=== PATIENT | male | born 1955 | race Caucasian/White ===

== ENCOUNTER → 2016-07-04 | Outpatient (CLI) | payer BC ==
[~2016-07-04] MED LIST: AMOX500C3 PO; ASPI325T39 PO; BUME1TAB PO; BUME2TAB3 PO; CARV6.252 PO; CLOP1TAB15 PO; CYAN3INJ IM; CYNI1000 IM; DOXY100C76 PO; DXY100 PO; GABA-113 PO; METF-384 PO; NTRSLP4 SL; PLV75 PO; PRAV80TA2 PO; PRVHFAIN PO; SACU1TAB4 PO; SULF800T23 PO; VTMB12 PO
--- NOTE | 2016-07-04 11:41 | DIAGNOSTIC IMAGING REPORT ---
RIGHT FIRST TOE 3 VIEWS HISTORY: NON HEALING WOULD Right COMPARISON: None. FINDINGS: There is no fracture or dislocation. Soft tissue swelling within the right first toe. No underlying bony destruction within the proximal distal phalanx of the right first toe. However, there is a 9 mm focus of osteolysis/cortical destruction within the head of the first metatarsal medially. No radiopaque foreign bodies. IMPRESSION: 1. Soft tissue swelling at the right first toe. No underlying bony obstruction within the first toe. 2. However, there is a 9 mm focus of osteolysis/cortical destruction at the head of the first metatarsal medially. This is separate from the area of soft tissue swelling. However, a small focus of osteomyelitis cannot be excluded. Clinical correlation recommended to assess for developing osteomyelitis at this location. Electronically signed by: Enzo Duarte M.D. 07/04/2016 11:39 AM Dictated Date/Time: 07/04/2016 11:36 AM
== END | disposition home or self-care (01) ==
LOC: C.RAD 10:33
PROVIDERS: ATTEND Physician Assistant
DX: L08.9 Local infection of the skin and subcutaneous tissue, unspecified (principal)

== ENCOUNTER 2016-09-09 12:06 | Inpatient (IN) | payer SELFPAY ==
[~2016-09-09] VITALS: Ht 185.4 cm; Wt 102.4 kg
[~2016-09-09 12:06] MED LIST changes: -BUME2TAB3 PO; -CLOP1TAB15 PO; -CYNI1000 IM; -DOXY100C76 PO; -DXY100 PO; -NTRSLP4 SL; -PRVHFAIN PO; -VTMB12 PO
[2016-09-09 12:09] VITALS: Ht 185.4 cm; Wt 102.4 kg
[2016-09-09 12:27] LABS: BASO % 0.5 %; BASO ABS # 0.03 K/uL (0-0.2); COMPLETE YES; EOS % 3.1 %; IG% 0.2 %; LYMPH % 10.3 %; MEAN CELL VOLUME 89.7 fL (80-100); MEAN CORPUSCULAR HEMOGLOBIN 28.5 pg (25-34); MEAN CORPUSCULAR HGB CONC 31.7 g/dl (32-36); MONO % 4.3 %; NEUT % 81.6 %; PLATELET COUNT 312 K/uL (130-400); WHITE BLOOD COUNT 5.84 K/uL (4.8-10.8)
[2016-09-09 12:38] LABS: PARTIAL THROMBOPLASTIN RATIO 1.1; PROTHROMBIN TIME (PATIENT) 11.2 SECONDS (9.0-12.0)
[2016-09-09 12:43] LABS: BUN/CREATININE RATIO 19.2 (10-20); CALCIUM 8.8 mg/dl (8.5-10.1); CREATININE 1.8 mg/dl (0.60-1.40); POTASSIUM 5.4 mmol/L (3.5-5.1)
--- NOTE | 2016-09-09 13:03 | DIAGNOSTIC IMAGING REPORT ---
CHEST ONE VIEW PORTABLE HISTORY: 61 years-old Male acute chest pain and pressure. COMPARISON: Chest radiograph 01/31/2016 TECHNIQUE: Portable upright AP view of the chest FINDINGS: Cardiomegaly is redemonstrated. Prior median sternotomy with surgical clips seen within the region of the left hilum. Single lead left pectoral pacer/defibrillator is again seen with lead intact. Telemetry leads are seen along the chest as well. There is no pneumothorax. There is chronic blunting of the bilateral costophrenic angles, unchanged. Mild pulmonary vascular congestion is noted and also appears unchanged. There is no overt pulmonary edema. Patchy alveolar opacity of the left lung base is again seen. The bones appear to be grossly intact. IMPRESSION: Stable exam with redemonstration of cardiomegaly and mild pulmonary vascular congestion with small bilateral pleural effusions and left basilar atelectasis. The above report was generated using voice recognition software. It may contain grammatical, syntax or spelling errors. Electronically signed by: Andrea Mi M.D. 09/09/2016 1:02 PM Dictated Date/Time: 09/09/2016 1:00 PM
[2016-09-09 13:13] LABS: BETA-HYDROXYBUTYRATE 1.48 mg/dL (0.2-2.81); CKMB/CK RATIO 3.9 (0-3.0)
[2016-09-09] MEDS ORDERED: BUME2TAB3 PO (13:44)
[2016-09-09] MEDS ORDERED: CYNI1000 IM (13:44)
[2016-09-09] MEDS ORDERED: SODIUM CHLORIDE 0.9% 1000ML 1,000 ML IV SCH (15:53)
[2016-09-09] MEDS ORDERED: ALUMINUM/MAGNESIUM/SIMETH (MAALOX MAX) 30 ML UDC PO PRN (16:00)
[2016-09-09] MEDS ORDERED: POLYETHYLENE (MIRALAX) 17 GM PACK PO PRN (16:00)
[2016-09-09] MEDS ORDERED: ZOLPIDEM TARTRATE 5 MG TAB PO PRN (16:00)
[2016-09-09] MEDS ORDERED: GLUCOSE 40% GEL 15 GM TUBE PO PRN (16:00)
[2016-09-09] MEDS ORDERED: GLUCAGON FOR INJ 1 MG VIAL SQ PRN (16:00)
[2016-09-09] MEDS ORDERED: GLUCOSE 10 TABS/TUBE PO PRN (16:00)
[2016-09-09] MEDS ORDERED: DEXTROSE 50% 50 ML SYR IV PRN (16:00)
[2016-09-09] MEDS ORDERED: ACETAMINOPHEN 325 MG TAB PO PRN (16:00)
[2016-09-09] MEDS ORDERED: MAGNESIUM HYDROXIDE SUSP 30 ML UDC PO PRN (16:00)
[2016-09-09] MEDS ORDERED: NITROGLYCERIN 0.4 MG SL PER TAB CHARGE SL PRN (16:00)
[2016-09-09] MEDS ORDERED: ACETYLCYSTEINE 600 MG CAP PO STA (16:08)
[2016-09-09] MEDS ORDERED: PHARMACY GLYCEMIC MGMT CONSULT SCH (16:13)
--- NOTE | 2016-09-09 16:20 | EMERGENCY ROOM VISIT NOTE ---
History Report prepared by Salena: Aneudy Lundberg Under the Supervision of: Dr. Adams Dolan M.D. First contact with patient: 12:08 Chief Complaint: CARDIAC ASSESSMENT Stated Complaint: CHEST PRESSURE History of Present Illness The patient is a 61 year old male who presents to the Emergency Room with complaints of intermittent left-sided chest pressure beginning a week ago. The patient states that he is currently not having chest pain or discomfort, but when he does it is a /-09/22 in severity. He reports that he used to get similar symptoms that would last 3 to 4 seconds before his open heart surgery in 2013. The patient notes that this is the first time his symptoms have returned. He reports that he was away on business in [place] when his symptoms started. He states that his last episode was this morning when he was walking to breakfast from the car. The patient reports that as he was walking, he felt the chest pressure, and it lasted 10 to 15 seconds. He notes that it only occurs when he is exerting himself, and after he rests for a few seconds, his symptoms resolve. The patient states that after his surgery, he was hospitalized multiple times, and he had two stents and a balloon in place. He reports that he had a heart catheterization 7 months ago, and it was negative. The patient notes that since then, he was hospitalized once, and he still follows up with his procurement specialist and takes Plavix and aspirin. He states that he has no other health history. The patient reports that his baseline troponin level is elevated. Pt denies LOC, headache, fevers, chills, diaphoresis, visual changes, neck pain, breathing difficulties, nausea, vomiting, abdominal pain, back pain, melena, hematochezia, urinary symptoms, numbness, weakness, lymphadenopathy, rash, leg edema, taking nitroglycerin, or other complaints. Source of History: patient Onset: week ago Position: chest (left) Symptom Intensity: 08/22-09/22 Quality: pressure Review of Systems See HPI for pertinent positives and negatives. A total of ten systems were reviewed and were otherwise negative. Past Medical & Surgical Medical Problems: (1) Acute exacerbation of CHF (congestive heart failure) (2) CHF (congestive heart failure) (3) Coronary artery disease (4) H/O cardiac pacemaker (5) Hypertension (6) Hypoxia (7) Ischemic cardiomyopathy (8) NSTEMI (non-ST elevated myocardial infarction) Surgical Problems: (1) H/O cardiac catheterization (2) S/P CABG (coronary artery bypass graft) (3) S/P cholecystectomy (4) Stented coronary artery Family History No pertinent family history Social History Smoking Status: Never Smoker Drug Use: none Marital Status: Housing Status: lives alone Occupation Status: employed Current/Historical Medications Scheduled Aspirin (Aspirin Ec), 325 MG PO QAM Bumetanide (Bumex), 1 TAB PO DAILY Carvedilol (Coreg), 6.25 MG PO BID Clopidogrel Bisulfate (Clopidogrel), 75 MG PO QAM Cyanocobalamin (Cyanocobalamin), 1 ML IM MONTHLY Gabapentin (Neurontin), 300 MG PO HS Metformin Hcl (Glucophage), 1,000 MG PO BID Pravastatin Sodium (Pravastatin Sodium), 1 TAB PO HS Sacubitril-Valsartan (Entresto 97-103 mg), 1 TAB PO BID Allergies Coded Allergies: No Known Allergies (Unverified , 09/09/16) Physical Exam Vital Signs Date Time Temp Pulse Resp B/P (MAP) Pulse Ox O2 Delivery O2 Flow Rate FiO2 09/09/16 15:14 69 15 108/60 93 Nasal Cannula 2.0 09/09/16 14:13 66 20 106/68 94 Nasal Cannula 2.0 09/09/16 12:53 68 22 104/60 95 2.0 09/09/16 12:26 67 09/09/16 12:24 Nasal Cannula 2.0 09/09/16 12:09 36.6 71 18 102/63 92 Room Air Physical Exam GENERAL: Awake, alert, well-appearing, in no distress HENT: Normocephalic, atraumatic. Oropharynx unremarkable. EYES: Normal conjunctiva. Sclera non-icteric. NECK: Supple. No nuchal rigidity. FROM. No JVD. RESPIRATORY: Clear to auscultation. CARDIAC: Regular rate, normal rhythm. Extremities warm and well perfused. Pulses equal. ABDOMEN: Soft, non-distended. No tenderness to palpation. No rebound or guarding. No masses. RECTAL: Deferred. MUSCULOSKELETAL: Chest examination reveals no tenderness. The back is symmetrical on inspection without obvious abnormality. There is no CVA tenderness to palpation. No joint edema. LOWER EXTREMITIES: Calves are equal size bilaterally and non-tender. No edema. No discoloration. NEURO: Normal sensorium. No sensory or motor deficits noted. SKIN: No rash or jaundice noted. Medical Decision & Procedures ER Provider Diagnostic Interpretation: X-ray: Per my interpretation, radiologist review. CHEST ONE VIEW PORTABLE HISTORY: 61 years-old Male acute chest pain and pressure. COMPARISON: Chest radiograph 01/31/2016 TECHNIQUE: Portable upright AP view of the chest FINDINGS: Cardiomegaly is redemonstrated. Prior median sternotomy with surgical clips seen within the region of the left hilum. Single lead left pectoral pacer/defibrillator is again seen with lead intact. Telemetry leads are seen along the chest as well. There is no pneumothorax. There is chronic blunting of the bilateral costophrenic angles, unchanged. Mild pulmonary vascular congestion is noted and also appears unchanged. There is no overt pulmonary edema. Patchy alveolar opacity of the left lung base is again seen. The bones appear to be grossly intact. IMPRESSION: Stable exam with redemonstration of cardiomegaly and mild pulmonary vascular congestion with small bilateral pleural effusions and left basilar atelectasis. The above report was generated using voice recognition software. It may contain grammatical, syntax or spelling errors. Electronically signed by: Andrea Mi M.D. 09/09/2016 1:02 PM Dictated Date/Time: 09/09/2016 1:00 PM Laboratory Results 09/09/16 12:17 Red Blood Count 3.90, Mean Corpuscular Volume 89.7, Mean Corpuscular Hemoglobin 28.5, Mean Corpuscular Hemoglobin Concent 31.7, Mean Platelet Volume 10.0, Neutrophils (%) (Auto) 81.6, Lymphocytes (%) (Auto) 10.3, Monocytes (%) (Auto) 4.3, Eosinophils (%) (Auto) 3.1, Basophils (%) (Auto) 0.5, Neutrophils # (Auto) 4.77, Lymphocytes # (Auto) 0.60, Monocytes # (Auto) 0.25, Eosinophils # (Auto) 0.18, Basophils # (Auto) 0.03 09/09/16 12:17 Test 09/09/16 12:17 09/09/16 12:54 White Blood Count 5.84 K/uL (4.8-10.8) Red Blood Count 3.90 M/uL (4.7-6.1) Hemoglobin 11.1 g/dL (14.0-18.0) Hematocrit 35.0 % (42-52) Mean Corpuscular Volume 89.7 fL (80-100) Mean Corpuscular Hemoglobin 28.5 pg (25-34) Mean Corpuscular Hemoglobin Concent 31.7 g/dl (32-36) Platelet Count 312 K/uL (130-400) Mean Platelet Volume 10.0 fL (7.4-10.4) Neutrophils (%) (Auto) 81.6 % Lymphocytes (%) (Auto) 10.3 % Monocytes (%) (Auto) 4.3 % Eosinophils (%) (Auto) 3.1 % Basophils (%) (Auto) 0.5 % Neutrophils # (Auto) 4.77 K/uL (1.4-6.5) Lymphocytes # (Auto) 0.60 K/uL (1.2-3.4) Monocytes # (Auto) 0.25 K/uL (0.11-0.59) Eosinophils # (Auto) 0.18 K/uL (0-0.5) Basophils # (Auto) 0.03 K/uL (0-0.2) RDW Standard Deviation 49.5 fL (36.4-46.3) RDW Coefficient of Variation 15.3 % (11.5-14.5) Immature Granulocyte % (Auto) 0.2 % Immature Granulocyte # (Auto) 0.01 K/uL (0.00-0.02) Prothrombin Time 11.2 SECONDS (9.0-12.0) Prothromb Time International Ratio 1.0 (0.9-1.1) Activated Partial Thromboplast Time 27.9 SECONDS (21.0-31.0) Partial Thromboplastin Ratio 1.1 Anion Gap 4.0 mmol/L (3-11) Est Creatinine Clear Calc Drug Dose 55.0 ml/min Estimated GFR () 46.4 Estimated GFR (Non- 40.0 BUN/Creatinine Ratio 19.2 (10-20) Calcium Level 8.8 mg/dl (8.5-10.1) Total Bilirubin 1.0 mg/dl (0.2-1) Direct Bilirubin 0.3 mg/dl (0-0.2) Aspartate Amino Transf (AST/SGOT) 10 U/L (15-37) Alanine Aminotransferase (ALT/SGPT) 12 U/L (12-78) Alkaline Phosphatase 150 U/L (45-117) Total Creatine Kinase 44 U/L (39-308) Creatine Kinase MB 1.7 ng/ml (0.5-3.6) Creatine Kinase MB Ratio 3.9 (0-3.0) Troponin I 0.929 ng/ml (0-0.045) Total Protein 8.2 gm/dl (6.4-8.2) Albumin 3.3 gm/dl (3.4-5.0) Lipase 170 U/L (73-393) Beta-Hydroxybutyric Acid 1.48 mg/dL (0.2-2.81) Bedside D-Dimer > 450 ng/mlFEU (0-450) Laboratory results reviewed by me ECG Indication: chest pain Rate (beats per minute): 75 Rhythm: sinus rhythm Findings: Q waves (anterioseptal), RBBB (incomplete), no acute ischemic change Comparison ECG Date: 01/31/16 Change: Non-specific ST abnormality in the inferior and anterior leads has resolved. ED Course 1230: The patient was evaluated in room C02B. A complete history and physical exam was performed. 1414: I discussed the patient's case with Dr. Hernandez, [facility] Hospitalist. The patient will be evaluated for further treatment. Medical Decision Triage Nursing notes reviewed. The patient's presentation and history were concerning for SOB and chest pressure. Etiologies such as pneumonia, COPD, reactive airway disease, CHF, cardiac ischemia, pulmonary embolism, pneumothorax, musculoskeletal, infections, gastrointestinal, as well as others were entertained. The patient has an extensive heart history. His troponin are creatinine is mildly elevated. The patient has a history of troponin elevation. His remainder of blood work and chest x-ray were unremarkable. Ultrasound of the lower extremity do not reveal any evidence of DVT. His d-dimer is mildly elevated. Because of this further evaluation and management will be necessary in the hospital. VQ scan is pending. Echo was ordered. Consultation was made with internal medicine. The patient was evaluated in the Emergency Room for further management. Medication Reconcilliation Current Medication List: was personally reviewed by me Blood Pressure Screening Patient's blood pressure: Normal blood pressure Blood pressure disposition: Did not require urgent referral Consults Time Called: 1355 Consulting Physician: Dr. Hernandez, [facility] Hospitalist Returned Call: 1414 I discussed the patient's case with Dr. Hernandez, [facility] Hospitalist. The patient will be evaluated for further treatment. Impression Primary Impression: SOB (shortness of breath) Additional Impression: Elevated troponin I level Scribe Attestation The scribe's documentation has been prepared under my direction and personally reviewed by me in its entirety. I confirm that the note above accurately reflects all work, treatment, procedures, and medical decision making performed by me. Departure Information Dispostion Being Evaluated By Hospitalist Referrals No Doctor, Assigned (PCP) Patient Instructions My [facility] Problem Qualifiers
[2016-09-09] MEDS ORDERED: SODIUM POLYST. SULF SUSP 15G/60ML PO STA (16:33)
[2016-09-09 16:38] VITALS: O2SAT 94
[2016-09-09] MEDS ORDERED: INSULIN HUMAN REGULAR PER IV STA (16:39)
--- NOTE | 2016-09-09 16:47 | DIAGNOSTIC IMAGING REPORT ---
LUNG IMAGING VQ CLINICAL HISTORY: Chest pain. Dyspnea. COMPARISON: None TECHNIQUE: For the ventilation portion of this exam, 33 mCi of DTPA was inhaled at 3:50 PM. Immediately following inhalation, imaging of the chest was carried out in the anterior, posterior, left lateral, right lateral, LPO, RPO, [place] and PEREA projections. For the perfusion portion of exam, 6 mCi of technetium 99m MAA was injected IV at 4:20 PM. Immediately following injection, imaging of the chest was carried out in the same projections. FINDINGS: Uniform perfusion characteristics of the bulk of the hemithoraces. Subtle in homogeneity perfusion of the left lower lobe. The ventilation component of the study shows no significant ventilation/perfusion mismatch. IMPRESSION: Low probability of pulmonary embolus The above report was generated using voice recognition software. It may contain grammatical, syntax or spelling errors. Electronically signed by: Roberto Jim M.D. 09/09/2016 4:45 PM Dictated Date/Time: 09/09/2016 4:43 PM
--- NOTE | 2016-09-09 17:12 | HISTORY & PHYSICAL EXAMINATION ---
DATE OF ADMISSION: 09/09/2016 ADMISSION CHIEF COMPLAINT: Chest tightness. HISTORY OF PRESENT ILLNESS: The patient is a 61-year-old man with past medical history of ischemic cardiomyopathy, coronary artery disease status post CABG x2 in 2013 followed by a balloon angioplasty and 2 stents placement in November 2014. In 2016, he had another catheterization and an echo that revealed ejection fraction of 40-45% with RV dysfunction and hypokinesia. He had a [employer] single chamber defibrillator for primary prevention, at that time not sure if he ever had some ventricular arrhythmias, but as per patient, AICD never fired since it was placed. The patient was in his regular state of health. As per patient, his diabetes is more or less under control. He had a small wound in his right big toe that he follows up with a wound clinic about. One week ago, patient flew to [place] and immediately when he landed in the airport, he started feeling some chest tightness on and off, it comes with exertion and he had to sit down and rest for a little bit and then continue walking. Symptoms improved, it was mild to begin with and he ignored it in [place], but it was intermittent. After coming from [place], he came to the ED for further evaluation and management and he was found to have a positive troponin of 0.9. He describes the pain as tightness and mild to moderate and it is mainly substernal and left side of the chest wall associated with some shortness of breath, no other associated symptoms and exaggerated by activity and relieved by rest. REVIEW OF SYSTEMS: Denies any headache, double vision, blurry vision. Denies any chest palpitation. Admits to chest tightness. Denies any shortness of breath except associated with tightness. Denies any coughing, wheezing. Denies any focal weakness, tingling, numbness. Denies any diarrhea, blood in the stool. Denies any burning sensation in the urine or blood. Denies any rash, denies any other complaints and rest of the review of system is negative. PAST MEDICAL AND SURGICAL HISTORY: 1. As mentioned in HPI CAD status post CABG and stents. 2. Systolic CHF. 3. Ischemic cardiomyopathy. 4. Status post pacemaker. 5. Hypertension. 6. Status post cholecystectomy. 7. Mild pulmonary hypertension. 8. Diastolic dysfunction. 9. Chronic kidney disease stage II-III. 10. Diabetes mellitus type 2, on metformin. 11. Status post left shoulder surgery. FAMILY HISTORY: Positive for coronary artery disease. SOCIAL HISTORY: Does not smoke, does not drink alcohol, employed. CURRENT MEDICATIONS: Aspirin 325, Bumex 1 tablet 2 mg daily, carvedilol 6.25 b.i.d., Plavix 75 mg p.o. daily, vitamin B12 supplement, Neurontin 300 mg at bedtime and metformin 1000 mg b.i.d., pravastatin 80 mg and sacubitril/valsartan 97/103 mg p.o. b.i.d. ALLERGIES: No known drug allergies. PHYSICAL EXAMINATION: VITAL SIGNS: Temperature 36.6, pulse 66, respirations 20, blood pressure 106/68, pulse ox 94% on 2 liters. GENERAL: The patient is slightly obese, not in acute distress at this point. HEENT: No jaundice, no pallor. Normocephalic, atraumatic with mucous membranes. EYES: Normal conjunctivae and sclerae nonicteric. NECK: Supple, no JVD. RESPIRATORY: Clear to auscultation bilaterally. Normal chest wall expansion. HEART: S1, S2 normal. No gallop, rub or murmur. ABDOMEN: Soft, nontender, nondistended, no masses or rebound or swelling. MUSCULOSKELETAL: No muscle atrophy, no significant joint swelling or tenderness. Lower extremity - no edema, discoloration or tenderness in calf muscle. Big toe has a superficial ulcer about 2 x 2 cm, appears to be healing. He follows up with wound clinic about it. NEUROLOGIC: Awake, alert, oriented to time, place, and person. Moves all extremities. Sensation intact. Cranial nerves II-XII appear to be intact. SKIN: No rash or erythema and exposed skin area. PSYCHIATRIC: Normal affect, appropriate process of thinking. IMAGING: Chest x-ray showed cardiomegaly and mild pulmonary congestion, small bilateral effusion also showed the median prior sternotomy with surgical clips and the presence of a defibrillator. LABORATORY DATA: White blood cell count 5.8, hemoglobin is 11.1 and platelets 312, BUN is 35, creatinine 1.8, potassium is 5.4, sodium is 138, blood sugar is 316. Troponin came back slightly elevated at 0.92 and CK was 1.7. EKG showed sinus rhythm, 75 beats per minute, right bundle branch block, incomplete. There was no ST elevation, but there was nonspecific ST-T wave changes. ASSESSMENT: 1. Chest pain, rule out acute coronary syndrome. 2. Positive troponin could be secondary to acute on chronic renal failure or demand anemia. 3. Shortness of breath to rule out a PE given recent history of travel. 4. Acute on chronic kidney injury, possibly secondary to Bumex and valsartan. 5. Hyperkalemia, also secondary to above. 6. Diabetes mellitus, unsure about hemoglobin A1c, but currently blood sugar is more than 300 and he is only on metformin, which will be held. 7. Diabetic foot ulcer, managed by wound clinic. 8. Obesity. 9. History of combined systolic and diastolic congestive heart failure, status post automated implantable cardioverter-defibrillator. 10. Hypertension. 11. Status post cholecystectomy. 12. Dyslipidemia. PLAN: 1. Admit the patient to telemetry. 2. Cardiology consult. 3. We will obtain anemia study. 4. Continue aspirin and Plavix at this point. 5. Start the patient on heparin drip. 6. VQ scan to rule out PE and ultrasound of lower extremity to rule out DVT. 7. Hold Bumex and valsartan. 8. Gentle IV fluid hydration. 9. One dose of Kayexalate and insulin 10 mg IV with 0.5 amp of D50. 10. Insulin sliding scale. 11. Check hemoglobin A1c and lipid panel to stratify his risk factors. 12. Follow up potassium in a.m. and renal function and follow up potassium alone at 10:00 p.m. today. 13. Follow up serial cardiac enzymes. 14. Obtain 2D echo. 15. We will start patient on Mucomyst as a precaution in case cardiac catheterization is required. Please discontinue Mucomyst if community service representative decided medical conservative management. 16. Calculate I and O's. 17. Further recommendation will follow. 18. If heparin stopped by community service representative, please remember to start the patient on pharmacologic DVT prophylaxis. MTDD
[2016-09-09] MEDS ORDERED: DEXTROSE 50% 50 ML SYR IV ONE (17:45)
[2016-09-09 18:58] VITALS: BP 140/84; PULSE 65; TEMP 36.8; O2SAT 91
[2016-09-09] MEDS: INSULIN ASPART 100 UNITS/ML 3 ML PEN SC SCH ×2 (19:59→21:00)
[2016-09-09] MEDS: HEPARIN 25,000 UNIT/500ML D5W 500 ML IV PRN ×2 (20:08→20:29)
[2016-09-09] MEDS ORDERED: GABAPENTIN 300 MG CAP PO SCH (21:00)
[2016-09-09] MEDS ORDERED: PRAVASTATIN SOD 40 MG TAB PO SCH (21:00)
[2016-09-09] MEDS ORDERED: INSULIN GLARGINE SOLOSTAR 100 UNITS/ML 3 ML PEN SC SCH (21:00)
--- NOTE | 2016-09-09 21:02 | DIAGNOSTIC IMAGING REPORT ---
VENOUS DOPPLER LW EXT BILAT HISTORY: Pain. Edema. + dimer, eval for PE COMPARISON STUDY: None. FINDINGS: There is normal compressibility, flow, and augmentation within the bilateral lower extremity deep venous systems. IMPRESSION: No DVT within the right or left lower extremity. The above report was generated using voice recognition software. It may contain grammatical, syntax or spelling errors. Electronically signed by: Roberto Jim M.D. 09/09/2016 9:01 PM Dictated Date/Time: 09/09/2016 9:01 PM
[2016-09-09] MEDS: ACETYLCYSTEINE 600 MG CAP PO SCH (21:11)
[2016-09-09] MEDS: CARVEDILOL 6.25 MG TAB PO SCH (21:11)
[2016-09-09 21:14] VITALS: BP 129/78; PULSE 80
[2016-09-09 21:56] LABS: BUN/CREATININE RATIO 23.9 (10-20); CALCIUM 8.5 mg/dl (8.5-10.1); CREATININE 1.5 mg/dl (0.60-1.40); POTASSIUM 4.4 mmol/L (3.5-5.1)
[2016-09-09 23:27] VITALS: BP 132/74; PULSE 71; TEMP 37; O2SAT 87
[2016-09-10 02:31] LABS: PARTIAL THROMBOPLASTIN RATIO 1.2
[2016-09-10] MEDS ORDERED: HEPARIN IV BOLUS 7,000 UNIT in SYRINGE 0 ML IV ONE (03:00)
[2016-09-10] MEDS: HEPARIN 25,000 UNIT/500ML D5W 500 ML IV PRN ×3 (03:03→11:58)
[2016-09-10 03:06] VITALS: BP 134/83; PULSE 72; TEMP 36.7; O2SAT 89
[2016-09-10 04:26] LABS: BASO % 0.4 %; BASO ABS # 0.02 K/uL (0-0.2); COMPLETE YES; HEMATOCRIT 30.2 % (42-52); IG% 0.2 %; LYMPH % 21.5 %; LYMPH ABS # 1.08 K/uL (1.2-3.4); MEAN CELL VOLUME 89.3 fL (80-100); MEAN CORPUSCULAR HEMOGLOBIN 28.4 pg (25-34); MEAN CORPUSCULAR HGB CONC 31.8 g/dl (32-36); MEAN PLATELET VOLUME 10.1 fL (7.4-10.4); NEUT % 66.9 %; PLATELET COUNT 240 K/uL (130-400); RED BLOOD COUNT 3.38 M/uL (4.7-6.1); WHITE BLOOD COUNT 5.02 K/uL (4.8-10.8)
[2016-09-10 04:45] LABS: CALCIUM 8.4 mg/dl (8.5-10.1); CREATININE 1.3 mg/dl (0.60-1.40); MAGNESIUM 2.1 mg/dl (1.8-2.4); POTASSIUM 4.5 mmol/L (3.5-5.1)
[2016-09-10 04:51] LABS: ALB/GLOB RATIO 0.7 (0.9-2); CHOLESTEROL/HDL RATIO 2.4; PHOSPHORUS 2.9 mg/dl (2.5-4.9)
[2016-09-10 06:23] LABS: ESTIMATED AVERAGE GLUCOSE 143 mg/dl; HA1C FLAG Normal (Normal)
--- NOTE | 2016-09-10 07:19 | Pharmacy Progress Note ---
Glycemic Control Intl Consult Date of Service Sep 10, 2016. Scope Glycemic Pharmacist consulted by Dr Strickland on 09/09/16 for glycemic control and to write orders per [facility] inpatient glycemic control protocol Objective Weight (Kilograms): 102.400 Accuchecks BSG (last 24hrs): Test 09/09/16 12:17 09/09/16 16:54 09/09/16 18:08 09/09/16 19:26 Random Glucose 316 mg/dl (70-99) Bedside Glucose 207 mg/dl (70-99) 165 mg/dl (70-99) 103 mg/dl (70-99) Test 09/09/16 21:15 09/10/16 03:37 09/10/16 06:42 Random Glucose 193 mg/dl (70-99) 146 mg/dl (70-99) Bedside Glucose 149 mg/dl (70-99) Laboratory Data (last 24hrs) Test 09/09/16 12:17 09/09/16 21:15 09/10/16 03:37 Anion Gap 4.0 mmol/L 7.0 mmol/L 5.0 mmol/L BUN/Creatinine Ratio 19.2 23.9 25.0 Blood Urea Nitrogen 35 mg/dl 36 mg/dl 33 mg/dl Creatinine 1.80 mg/dl 1.50 mg/dl 1.30 mg/dl Potassium Level 5.4 mmol/L 4.4 mmol/L 4.5 mmol/L Sodium Level 138 mmol/L 139 mmol/L 141 mmol/L White Blood Count 5.84 K/uL 5.02 K/uL Red Blood Count 3.90 M/uL 3.38 M/uL Hemoglobin 11.1 g/dL 9.6 g/dL Hematocrit 35.0 % 30.2 % Mean Corpuscular Volume 89.7 fL 89.3 fL Mean Corpuscular Hemoglobin 28.5 pg 28.4 pg Mean Corpuscular Hemoglobin Concent 31.7 g/dl 31.8 g/dl Platelet Count 312 K/uL 240 K/uL Mean Platelet Volume 10.0 fL 10.1 fL Neutrophils (%) (Auto) 81.6 % 66.9 % Lymphocytes (%) (Auto) 10.3 % 21.5 % Monocytes (%) (Auto) 4.3 % 7.0 % Eosinophils (%) (Auto) 3.1 % 4.0 % Basophils (%) (Auto) 0.5 % 0.4 % Neutrophils # (Auto) 4.77 K/uL 3.36 K/uL Lymphocytes # (Auto) 0.60 K/uL 1.08 K/uL Monocytes # (Auto) 0.25 K/uL 0.35 K/uL Eosinophils # (Auto) 0.18 K/uL 0.20 K/uL Basophils # (Auto) 0.03 K/uL 0.02 K/uL Hemoglobin A1c 6.6 % HbA1c Test 09/10/16 03:37 Hemoglobin A1c 6.6 % (4.5-5.6) H Recent Pertinent Medications Outpatient Anti-diabetic Regimen: * metformin 1 g PO BIDM Assessment & Plan ASSESSMENT: * 61 yo diabetic M admitted with CP overnight, BSG in the ED ~300 * Pt was given 5 units IV Regular insulin X 1 which brought BSGs immediately within goal range * Plan was to continue patient on basal/bolus regimen; however patient refused Lantus last night * Fasting BSG this AM = 149 * Plan will be to discontinue basal insulin as patient is refusing it and only add to regimen if BSGs remain consistently > 180 as patient does not want it * Continue weight-based Novolog and make adjustments as necessary * ADA & AACE recommend a goal blood sugar range 140-180 mg/dl for the majority of critically ill & non-critically ill patients. However, more stringent targets may be selected in individual cases. Patient is well controlled as outpatient as evidenced by A1c 6.6%; tighten goal range to mimic outpatient control. PLAN FOR INPATIENT GLYCEMIC CONTROL: * Hold outpatient metformin * Hold off on any basal insulin at this time * Correctional Insulin with NOVOLOG per scale ACHS or Q6hrs while NPO * Goal Range: Low 110 mg/dL - High 140 mg/dL * Correction Factor: 30 mg/dL/unit * Nutritional / Prandial insulin per carb ratio of 1 unit per 10 grams CHO consumed * Please note that the plan above was derived based on current level of insulin resistance and hospital stress. These recommendations are appropriate for inpatient admission only. Plan of care upon discharge will need to be reassessed to avoid potential outpatient hypo/hyperglycemia. Thank you.
[2016-09-10 08:05] VITALS: BP 139/86; PULSE 70; TEMP 36.6; O2SAT 91
[2016-09-10] MEDS: CARVEDILOL 6.25 MG TAB PO SCH (08:43)
[2016-09-10] MEDS: ACETYLCYSTEINE 600 MG CAP PO SCH (08:44)
[2016-09-10] MEDS: INSULIN ASPART 100 UNITS/ML 3 ML PEN SC SCH ×2 (08:46→11:57)
[2016-09-10] MEDS ORDERED: CLOPIDOGREL BISULFATE 75 MG TAB PO SCH (09:00)
[2016-09-10] MEDS ORDERED: ASPIRIN 325 MG ECTAB PO SCH (09:00)
[2016-09-10 09:50] LABS: PARTIAL THROMBOPLASTIN RATIO 1.3
[2016-09-10] MEDS ORDERED: HEPARIN IV BOLUS 7,000 UNIT in SYRINGE 0 ML IV SCH (10:15)
[2016-09-10 11:45] VITALS: BP 117/76; PULSE 73; TEMP 37; O2SAT 91
--- NOTE | 2016-09-10 14:21 | ECHOCARDIOGRAM REPORT ---
*NOTICE TO RECEIVING LIBERTARIAN AGENCY This information is strictly Confidential and protected under [place] law. [place] law prohibits you from making any further disclosure of this information unless further disclosure is expressly permitted by the written consent of the person to whom it pertains or is authorized by law. A general authorization for the release of medical or other information is not sufficient for this purpose. Hospital accepts no responsibility if the information is made available to any other person, INCLUDING THE PATIENT. Interpretation Summary * Name: REJI ABRAHAM Study Date: 09/10/2016 07:38 AM BP: 134/83 mmHg * Patient Location: C.2E\S\E209\S\1 HR: 82 * : 1955 (M/d/yyyy) Gender: Male Height: 73 in * Age: 61 yrs Ethnicity: CA Weight: 227 lb * Ordering Physician: Reji Dolan * Referring Physician: Self, Referred * Performed By: Sherine Knight RCS * * Reason For Study: CHEST PAIN * BSA: 2.3 m2 * -- Conclusions -- * The left ventricle is mildly dilated. * There is mild concentric left ventricular hypertrophy. * Left ventricular systolic function is mildly reduced. * There are regional wall motion abnormalities as specified. * The right ventricular systolic function is mildly reduced. * The left atrium is severely dilated. * The right atrium is mildly dilated. * There is mild mitral regurgitation. * Right ventricular systolic pressure is elevated at 40-50mmHg. * Compared to a study from 10/2015, the diastolic function seems worse and there is an element of mitral regurgitation. Procedure Details * A complete two-dimensional transthoracic echocardiogram was performed (2D, M-mode, Doppler and color flow Doppler). Left Ventricle * The left ventricle is mildly dilated. * There is mild concentric left ventricular hypertrophy. * Left ventricular systolic function is mildly reduced. * Ejection Fraction = 40-45%. * There appears to be restrictive diastolic filling * Global hypokinesis with severe hypokinesis of the basal inferior and anterior apical segments * There are regional wall motion abnormalities as specified. Right Ventricle * The right ventricle is grossly normal size. * There is a pacemaker lead in the right ventricle. * The right ventricular systolic function is mildly reduced. Atria * The left atrium is severely dilated. * The right atrium is mildly dilated. Mitral Valve * The mitral valve is grossly normal. * There is mild mitral regurgitation. Tricuspid Valve * There is mild tricuspid regurgitation. * Right ventricular systolic pressure is elevated at 40-50mmHg. Aortic Valve * The aortic valve is normal in structure and function. * No hemodynamically significant valvular aortic stenosis. * There is no significant aortic regurgitation. Great Vessels * The aortic root is normal size. Pericardium/Pleural * There is no pericardial effusion. MMode 2D Measurements and Calculations IVSd 1.7 cm IVSs 2.4 cm LVIDd 5.4 cm LVIDs 4.6 cm LVPWd 1.4 cm LVPWs 1.0 cm IVS/LVPW 1.2 FS 13.5 % EDV(Teich) 139.5 ml ESV(Teich) 99.7 ml EF(Teich) 28.5 % EDV(cubed) 154.9 ml ESV(cubed) 100.4 ml EF(cubed) 35.2 % % IVS thick 40.1 % % LVPW thick -29.25 % LV mass(C)d 384.5 grams LV mass(C)dI 169.3 grams/m\S\2 LV mass(C)s 351.6 grams LV mass(C)sI 154.9 grams/m\S\2 SV(Teich) 39.8 ml SI(Teich) 17.5 ml/m\S\2 SV(cubed) 54.5 ml SI(cubed) 24.0 ml/m\S\2 Ao root diam 3.4 cm Ao root area 9.2 cm\S\2 ACS 2.0 cm LA dimension 5.0 cm LA/Ao 1.5 LVOT diam 2.2 cm LVOT area 3.9 cm\S\2 LVAd ap4 53.2 cm\S\2 LVLd ap4 10.3 cm EDV(MOD-sp4) 220.3 ml EDV(sp4-el) 232.4 ml LVAs ap4 44.2 cm\S\2 LVLs ap4 9.9 cm ESV(MOD-sp4) 158.6 ml ESV(sp4-el) 166.9 ml EF(MOD-sp4) 28.0 % EF(sp4-el) 28.2 % LVAd ap2 51.2 cm\S\2 LVLd ap2 10.3 cm EDV(MOD-sp2) 205.8 ml EDV(sp2-el) 216.7 ml LVAs ap2 41.8 cm\S\2 LVLs ap2 9.7 cm ESV(MOD-sp2) 142.9 ml ESV(sp2-el) 153.3 ml EF(MOD-sp2) 30.5 % EF(sp2-el) 29.3 % LVLd %diff -0.61 % EDV(MOD-bp) 212.9 ml LVLs %diff -2.80 % ESV(MOD-bp) 151.0 ml EF(MOD-bp) 29.1 % SV(MOD-sp4) 61.7 ml SI(MOD-sp4) 27.1 ml/m\S\2 SV(MOD-sp2) 62.8 ml SI(MOD-sp2) 27.7 ml/m\S\2 SV(MOD-bp) 62.0 ml SI(MOD-bp) 27.3 ml/m\S\2 SV(sp4-el) 65.4 ml SI(sp4-el) 28.8 ml/m\S\2 SV(sp2-el) 63.4 ml SI(sp2-el) 27.9 ml/m\S\2 Doppler Measurements and Calculations MV E max smita 115.6 cm/sec MV A max smita 44.9 cm/sec MV E/A 2.6 MV P1/2t max smita 116.5 cm/sec MV P1/2t 69.2 msec MVA(P1/2t) 3.2 cm\S\2 MV dec slope 493.2 cm/sec\S\2 MV dec time 0.20 sec Ao V2 max 131.8 cm/sec Ao max PG 7.0 mmHg Ao max PG (full) 5.1 mmHg JOCE(V,A) 2.0 cm\S\2 JOCE(V,D) 2.0 cm\S\2 LV V1 max PG 1.9 mmHg LV V1 max 68.5 cm/sec MR max smita 451.7 cm/sec MR max PG 81.6 mmHg TR max smita 329.9 cm/sec
--- NOTE | 2016-09-10 14:38 | Discharge Instructions ---
Discharge Instructions Date of Service Sep 10, 2016. Admission Reason for Admission: Unstable angina, Acute renal failure Discharge Discharge Diagnosis / Problem: Unstable angina, acute renal failure resolving Discharge Goals Goal(s): Decrease discomfort, Improve disease control, Diagnostic testing ( heart catheterization) Activity Recommendations Activity Limitations: as noted below Lifting Limitations: no more than 10 pounds Exercise/Sports Limitations: until after follow-up appointment May Resume Sexual Activity: after follow-up appointment Shower/Bathe: no limitations Driving or Machine Use: no limitations . Instructions / Follow-Up Instructions / Follow-Up Medications: continue prior home medications, no changes In summary, you presented with worsening chest pain on exertion after several months of not having chest pressure. Troponin elevated at 0.9, no clear EKG changes consistent with heart attack. Echocardiogram unchanged. You can use nitroglycerin as needed for the chest pain but you need to know that this only treats symptoms, does not improve mortality. You were evaluated by Dr. Mathur with cardiology, his recommendation is to stay here until Monday for heart catheterization. By leaving against advise you accept that you could suffer a heart attack or even . Please follow up with Dr. Arshad and arrange for outpatient heart catheterization as soon as possible. IF YOU DEVELOP WORSENING CHEST PRESSURE, MORE INTENSE, NOT GOING AWAY WITH REST, PLEASE COME TO THE EMERGENCY ROOM IMMEDIATELY THIS IS A SIGN OF A HEART ATTACK Current Hospital Diet Patient's current hospital diet: Diabetes Type 2 Diet, AHA Diet (Heart Healthy) , Renal Diet Discharge Diet Recommended Diet: AHA Diet (Heart Healthy), Diabetes Type 2 Diet Pending Studies Studies pending at discharge: no Laboratory Results Hemoglobin A1c Test 09/10/16 03:37 Range/Units Estimated Average Glucose 143 mg/dl Hemoglobin A1c 6.6 H 4.5-5.6 % Lipid Panel Test 09/10/16 03:37 Range/Units Triglycerides Level 82 0-150 mg/dl Cholesterol Level 107 0-200 mg/dl HDL Cholesterol 45 mg/dl Cholesterol/HDL Ratio 2.4 LDL Cholesterol, Calculated 46 mg/dl Medical Emergencies . Who to Call and When: Medical Emergencies: If at any time you feel your situation is an emergency, please call 911 immediately. . Non-Emergent Contact Non-Emergency issues call your: [employer] Call Non-Emergent contact if: your pain is not controlled, your pain is worsening . . "Provider Documentation" section prepared by Juvenal Henderson. . VTE Core Measure Inpt VTE Proph given/why not?: Other Anticoagulation (heparin drip) [place] Drug Monitoring Program Search Results: no issues identified
[2016-09-10 14:48] VITALS: BP 117/76; PULSE 73; TEMP 37; O2SAT 91
[2016-09-10 15:46] VITALS: PULSE 74; TEMP 36.7; O2SAT 97
--- NOTE | 2016-09-10 16:27 | Cardiology Consultation ---
Cardiology Consultation Date of Consultation: Sep 10, 2016. Requesting Physician: Santiago Reason for Consultation: NSTEMI Pt evaluation today including: conversation w/ patient, physical exam, chart review, lab review, review of studies, review of inpatient medication list, conversation w/ attending History of Present Illness Patient is the history of cardiac disease with coronary artery cardiomyopathy who presented with symptoms chest discomfort. Patient reports approximately 1 week ago had episode chest pressure while walking with a the. The symptoms lasted for few minutes and resolve down and rest this visit time dyspnea of on other episodes. His circ with episode all the with chest pressure with activity which resolved quickly with reduction in activity or rest has been evening his usual activity. Left significant exertion and during other forms activity had a chest pressure did not appear to be radiation of the symptoms she had back or arm and associated this there were not associated with significant dizziness or lightheaded patient in and was he cannot recall having symptoms of this nature in the past Patient was initially diagnosed with coronary disease during a routine physical examination. Patient stated he presented for a complaint involving infected toe and upon as a pro this of the have an abnormality which eventually led to coronary bypass several days later with not having chest pain leading up to his bypass surgery reports having had multiple complications related to his surgery year following. He has also had multiple cardiac catheterizations in [place] most recent a catheterization at [facility]. He has also suffered from symptoms of orthostatic hypotension and most recently was started onEntresto with significant improvement in his symptoms overall. At the time of this interview the patient is feeling well. He denied symptoms of chest discomfort since admission. He denies any significant breathing difficulty. Past Medical/Surgical History Coronary artery disease Patient with coronary artery bypass with MALDONADO to LAD is saphenous vein graft to OM. Last cardiac catheterization 03/2015. Patient grafts. Severe proximal circumflex and LAD disease. Nonobstructive disease in the right coronary artery. 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 Review of Systems Constitutional: + see HPI Respiratory: + see HPI, + shortness of breath, + dyspnea on exertion Cardiac: + see HPI Abdomen: + see HPI Male : + see HPI Neurologic: + see HPI Heme: + see HPI Endo: + see HPI Skin: + see HPI Patient did report a fever several days ago which appear to respond to aspirin therapy. He has a chronic cough which is not changed with them. The other associated symptoms with his fever except for a headache. All Other Systems: Reviewed and Negative Allergies Coded Allergies: No Known Allergies (Unverified , 09/09/16) Physical Exam Vital Signs Past 12 Hours Date Time Temp Pulse Resp B/P (MAP) Pulse Ox O2 Delivery O2 Flow Rate FiO2 09/10/16 15:46 36.7 74 18 97 Nasal Cannula 2.0 09/10/16 14:48 37.0 73 18 91 Room Air 09/10/16 12:00 Room Air 09/10/16 11:45 37.0 73 18 117/76 (90) 91 Room Air 09/10/16 08:05 36.6 70 18 139/86 (103) 91 Room Air 09/10/16 08:00 Room Air The patient is alert and oriented. Mood and affect appeared normal. He answered all questions appropriately. HEENT: Pupils are equal and reactive to light and accommodation. Extraocular movements are intact. The sclerae are anicteric. Neuro: Cranial nerves intact Neck: Patient's neck is supple. He has palpable carotid pulses bilaterally without bruits on auscultation. There is no evidence of jugular venous distention. The thyroid is not enlarged. Lungs: Clear to auscultation bilaterally. He has good air movement without use of accessory muscles. No rales wheezes or rhonchi. Cardiac: Heart demonstrates a regular rate and rhythm. Normal S1 and split S2. No murmurs on examination. Pulses: The patient has palpable radial pulses bilaterally that are equal in intensity Extremities: There was no evidence of hypoperfusion. There is no cyanosis or clubbing. There is no edema. He has a bandage on right great toe. Skin: I did not appreciate any rashes on examination today. Data Laboratory Results: Last 24 Hours Test 09/09/16 16:54 09/09/16 18:08 09/09/16 19:26 09/09/16 21:15 Bedside Glucose 207 mg/dl 165 mg/dl 103 mg/dl Sodium Level 139 mmol/L Potassium Level 4.4 mmol/L Chloride Level 104 mmol/L Carbon Dioxide Level 28 mmol/L Anion Gap 7.0 mmol/L Blood Urea Nitrogen 36 mg/dl Creatinine 1.50 mg/dl Est Creatinine Clear Calc Drug Dose 66.1 ml/min Estimated GFR () 57.8 Estimated GFR (Non- 49.9 BUN/Creatinine Ratio 23.9 Random Glucose 193 mg/dl Calcium Level 8.5 mg/dl Total Creatine Kinase 38 U/L Troponin I 0.846 ng/ml Test 09/10/16 02:15 09/10/16 03:37 09/10/16 06:42 09/10/16 09:21 Activated Partial Thromboplast Time 31.2 SECONDS 34.2 SECONDS Partial Thromboplastin Ratio 1.2 1.3 White Blood Count 5.02 K/uL Red Blood Count 3.38 M/uL Hemoglobin 9.6 g/dL Hematocrit 30.2 % Mean Corpuscular Volume 89.3 fL Mean Corpuscular Hemoglobin 28.4 pg Mean Corpuscular Hemoglobin Concent 31.8 g/dl Platelet Count 240 K/uL Mean Platelet Volume 10.1 fL Neutrophils (%) (Auto) 66.9 % Lymphocytes (%) (Auto) 21.5 % Monocytes (%) (Auto) 7.0 % Eosinophils (%) (Auto) 4.0 % Basophils (%) (Auto) 0.4 % Neutrophils # (Auto) 3.36 K/uL Lymphocytes # (Auto) 1.08 K/uL Monocytes # (Auto) 0.35 K/uL Eosinophils # (Auto) 0.20 K/uL Basophils # (Auto) 0.02 K/uL RDW Standard Deviation 49.4 fL RDW Coefficient of Variation 15.2 % Immature Granulocyte % (Auto) 0.2 % Immature Granulocyte # (Auto) 0.01 K/uL Sodium Level 141 mmol/L Potassium Level 4.5 mmol/L Chloride Level 107 mmol/L Carbon Dioxide Level 29 mmol/L Anion Gap 5.0 mmol/L Blood Urea Nitrogen 33 mg/dl Creatinine 1.30 mg/dl Est Creatinine Clear Calc Drug Dose 76.2 ml/min Estimated GFR () 68.7 Estimated GFR (Non- 59.3 BUN/Creatinine Ratio 25.0 Random Glucose 146 mg/dl Estimated Average Glucose 143 mg/dl Hemoglobin A1c 6.6 % Calcium Level 8.4 mg/dl Phosphorus Level 2.9 mg/dl Magnesium Level 2.1 mg/dl Total Bilirubin 0.8 mg/dl Aspartate Amino Transf (AST/SGOT) 9 U/L Alanine Aminotransferase (ALT/SGPT) 11 U/L Alkaline Phosphatase 135 U/L Total Creatine Kinase 32 U/L 35 U/L Troponin I 0.805 ng/ml 0.789 ng/ml Total Protein 7.0 gm/dl Albumin 2.8 gm/dl Globulin 4.2 gm/dl Albumin/Globulin Ratio 0.7 Triglycerides Level 82 mg/dl Cholesterol Level 107 mg/dl HDL Cholesterol 45 mg/dl LDL Cholesterol, Calculated 46 mg/dl VLDL Cholesterol, Calculated 16 mg/dl Cholesterol/HDL Ratio 2.4 Bedside Glucose 149 mg/dl Test 09/10/16 11:06 09/10/16 15:53 Bedside Glucose 143 mg/dl Imaging: Patient underwent imaging to rule out pulmonary emboli nuclear perfusion study another extremity venous Doppler. The did not demonstrate any evidence of pulmonary embolus or DVT EKG: Sinus rhythm with evidence of an old inferolateral myocardial infarction Telemetry reviewed: No significant a rhythm Echocardiogram demonstrated mildly reduced LV systolic function with mild mitral regurgitation and severe left atrial enlargement. There were regional wall motion abnormalities. No difference compared to echocardiogram from 2016 Assessment & Plan 1. Unstable angina: Patient had 1 in angina. I definition this is unstable angina. He has not had any symptoms at rest. Symptoms have not been prolonged in nature. Is a maintained on his usual cardiac regimen with the addition heparin. He does have elevated cardiac biomarkers that this in fact may be chronic. He reports that he elevated troponin number it is checked. The symptoms were fairly brief in duration and not likely clot in the elevation in biomarkers nonetheless, given the unstable nature of his symptoms I did recommend continued hospitalization and coronary angiography. I stressed to the patient in more than 1 and pro the dangers of leaving the hospital without additional therapy. He is certainly at risk of serious event given the potentially unstable nature of his symptoms and coronary 2. Elevated cardiac biomarkers: This may be chronic given the mid cardiomyopathy. 3. Coronary artery disease: Patient does have symptoms of classic angina. The recommendation was for continued systemic anticoagulation and coronary angiography. 4. Ischemic cardiomyopathy: Patient appears to be well compensated on him. He is on a good medical regimen to consist of a beta-olga and Entresto. He does monitor his weight closely at home and uses diuretics as he claims to have had a stable weight recently 5. Diastolic dysfunction 6. Mitral regurgitation: Mild Patient expressed a desire to leave the hospital against medical advice and did have an extensive conversation with the patient regarding the dangers of bleeding hospital up to including . He was instructed to maintain his current medical regimen report continuing symptoms of chest discomfort reported immediately seek medical facility for symptoms which occurred at rest and did not resolve in a short time frame
--- NOTE | 2016-09-11 07:58 | Discharge Summary ---
Discharge Summary Date of Service Sep 10, 2016. Discharge Summary Admission Date: Sep 09, 2016 at 16:08 Discharge Date: Sep 10, 2016 Discharge Disposition: Home Principal Diagnosis: Unstable angina Problems/Secondary Diagnoses: TISHA, resolving Procedures: echocardiogram - no change compared to prior echo Consultations: Cardiology - Dr. Mathur Medication Reconciliation Continued Medications: Aspirin (Aspirin Ec) 325 Mg Tab 325 MG PO QAM NO INSTR. ABOUT ASA Bumetanide (Bumex) 2 Mg Tab 1 TAB PO DAILY, #15 TAKE 1 TABLET IN THE MORNING AND 1/2 TABLET IN THE EVENING. Carvedilol (Coreg) 6.25 Mg Tab 6.25 MG PO BID, TAB Clopidogrel Bisulfate (Clopidogrel) 75 Mg Tab 75 MG PO QAM for 30 Days, #30 TAB Cyanocobalamin (Cyanocobalamin) 1,000 Mcg/Ml Inj 1 ML IM MONTHLY Gabapentin (Neurontin) 300 Mg Cap 300 MG PO HS, CAP 600 MG IN THE EVENING Metformin Hcl (Glucophage) 1,000 Mg Tab 1000 MG PO BID, TAB Pravastatin Sodium (Pravastatin Sodium) 80 Mg Tab 1 TAB PO HS, TAB 3 Refills Sacubitril-Valsartan (Entresto 97-103 mg) 1 Tab Tab 1 TAB PO BID Discharge Exam Patient without any chest pressure while admitted. Discussed symptoms in detail. Patient with well established history of coronary disease with CABG and stenting performed in the past. Last catheterization was in 2015, no interventions needed. His recent symptoms have been exertional angina. He says that he was stable and without angina for many months. Reviewed lab work, renal function improving, troponin trending down. Discussed the case with Dr. Mathur. His recommendations were to continue the heparin drip and to have a cardiac catheterization on Tuesday 09/12. Called to the patient's room later in the day. He understood the recommendations but wanted to leave [facility]. He said that he did not have insurance so every night in the hospital would be more money. He was without chest pressure and troponin trending down. He understood that by leaving he was at risk for major heart attack and even . He was fixated on getting his daughter back to [place] for an athletic tryout. He planned to follow up with Dr. Arshad this week and get scheduled for heart catheterization. He agreed to return to the hospital if chest pressure returned or got more intense. Review of Systems: Constitutional: No fever, No chills, No sweats, No weight loss, No weakness , No fatigue, No problem reported Eyes: No worsening of vision, No eye pain, No redness, No discharge, No diplopia, No problem reported ENT: No hearing loss, No unusual epistaxis, No nasal symptoms, No sore throat, No tinnitus, No dental problems, No trouble swallowing, No problem reported Respiratory: No cough, No sputum, No wheezing, No shortness of breath, No dyspnea on exertion, No dyspnea at rest, No hemoptysis, No problem reported Cardiovascular: + chest pain (pressure, prior to admission on exertion, none while hospitalized), No orthopnea, No PND, No edema, No claudication, No palpitations, No problem reported Abdomen: No pain, No nausea, No vomiting, No diarrhea, No constipation, No GI bleeding, No problem reported Musculoskeletal: No joint pain, No muscle pain, No swelling, No calf pain, No problem reported Genitourinary - Male: No hematuria, No dysuria, No urinary frequency, No urinary urgency Neurologic: + numbness/tingling (peripheral neuropathy, chronic issue), No memory loss, No paralysis, No weakness, No vertigo, No balance problems, No problem reported Psychiatric: No depression symptoms, No anhedonism, No anxiety, No insomnia , No substance abuse, No problem reported Endocrine: No fatigue, No excessive thirst, No excessive urination, No problem reported Hematologic / Lymphatic: No abnormal bleeding/bruising, No clotting problems , No swollen lymph nodes, No night sweats, No problem reported Integumentary: + problem reported (toe wound, chronic, bandage changed) Physical Exam: General Appearance: WD/WN, no apparent distress Eyes: normal inspection, EOMI, sclerae normal ENT: normal ENT inspection, hearing grossly normal, pharynx normal Neck: supple, no adenopathy, no JVD, trachea midline Respiratory/Chest: chest non-tender, lungs clear, normal breath sounds, no respiratory distress, no accessory muscle use Cardiovascular: regular rate, rhythm, no edema, no gallop, no JVD, no murmur , normal peripheral pulses Abdomen / GI: normal bowel sounds, non tender, soft, no organomegaly Extremities: normal inspection, no calf tenderness, normal capillary refill , no pedal edema, normal range of motion, pelvis stable Neurologic/Psychiatric: director global intelligence II-XII nml as tested, no motor/sensory deficits , alert, normal mood/affect, normal reflexes, oriented x 3 Skin: normal color, warm/dry, no rash Hospital Course 61 yo male with well known h/o coronary disease with CABG and stenting in the past, also with history of mild ischemic [employer] with reduced EF of 40-45% and h/o of ICD placement, presented with worsening chest pressure on exertion, anginal symptoms with less exertion, concerning for unstable angina - Unstable angina: treated with aspirin, Plavix, heparin gtt, statin therapy troponin initially 0.9 and slowly trending down, although patient states that troponin always elevated no chest pressure while hospitalized, resting echo showed that EF was the same compared to prior echocardiogram recommendation from Dr. Mathur: continue heparin gtt and have LHC on Monday patient voiced understanding of the recommendations but wanted to leave AMA he did not want to stay overnight for heparin gtt he planned to see Dr. Arshad this week in the office and get scheduled for LHC this week or the next he knew to return to the hospital if chest pressure became worse - TISHA: likely prerenal with Cr improving with some gentle IV fluids that can be stopped continue Bumex on discharge and Entresto can repeat labs as outpatient - Chronic systolic heart failure: euvolemic on discharge - Dyslipidemia: continue statin therapy patient left AMA, he plans to follow up with Dr. Arshad this week Total Time Spent: Greater than 30 minutes This includes examination of the patient, discharge planning, medication reconciliation, and communication with other providers. Discharge Instructions Please refer to the electronic Patient Visit Report (Discharge Instructions) for additional information. Follow-Up Dr. Arshad this week Additional Copies To Bhanu Arshad, DO
[2016-09-17] MEDS ORDERED: PRVHFAIN PO (11:16)
[2016-09-17] MEDS ORDERED: CLOP1TAB15 PO (11:16)
[2016-09-17] MEDS ORDERED: NTRSLP4 SL (11:16)
[2016-09-17] MEDS ORDERED: DXY100 PO (11:16)
[2016-09-17] MEDS ORDERED: VTMB12 PO (11:16)
[2016-09-19] MEDS ORDERED: SULF800T23 PO (08:30)
[2016-09-19] MEDS ORDERED: DOXY100C76 PO (08:34)
[2016-10-14] MEDS ORDERED: SULF800T23 PO (13:01)
[2016-10-24] MEDS ORDERED: SULF800T23 PO (14:27)
== END 2016-09-10 16:06 | disposition left against medical advice (07) | DRG 303 ==
LOC: C.EDB 12:07 → C.2E 16:08 → ENRESERV 17:24
PROVIDERS: ADMIT Internal Medicine; ATTEND Internal Medicine
DX: I25.110 Atherosclerotic heart disease of native coronary artery with unstable angina pectoris (principal); N17.9 Acute kidney failure, unspecified; I50.42 Chronic combined systolic (congestive) and diastolic (congestive) heart failure; I13.0 Hypertensive heart and chronic kidney disease with heart failure and stage 1 through stage 4 chronic kidney disease, or unspecified chronic kidney disease; E87.5 Hyperkalemia; E78.5 Hyperlipidemia, unspecified; E11.9 Type 2 diabetes mellitus without complications; I25.5 Ischemic cardiomyopathy; N18.3 Chronic kidney disease, stage 3 (moderate); Z79.899 Other long term (current) drug therapy; Z79.82 Long term (current) use of aspirin; Z79.02 Long term (current) use of antithrombotics/antiplatelets; Z79.84 Long term (current) use of oral hypoglycemic drugs; Z95.1 Presence of aortocoronary bypass graft; Z95.5 Presence of coronary angioplasty implant and graft; Z95.810 Presence of automatic (implantable) cardiac defibrillator; Z82.49 Family history of ischemic heart disease and other diseases of the circulatory system

== ENCOUNTER 2016-09-14 19:12 | Inpatient (IN) | payer OTHER ==
[~2016-09-14] VITALS: Ht 185.4 cm; Wt 100.4 kg
[~2016-09-14 19:12] MED LIST changes: -AMOX500C3 PO; -BUME1TAB PO; +BUME2TAB3 PO; -CYAN3INJ IM; +CYNI1000 IM; -SULF800T23 PO
--- NOTE | 2016-09-14 19:35 | EMERGENCY ROOM VISIT NOTE ---
History Report prepared by Salena: Kiley Bennett Under the Supervision of: Dr. Marcell Carrillo D.O. First contact with patient: 19:19 Chief Complaint: SHORTNESS OF BREATH Stated Complaint: HEART- CHF-DIFFICULTY BREATHING History of Present Illness The patient is a 61 year old male who presents to the Emergency Room with complaints of persistent shortness of breath that began several days ago. The patient states that he was recently evaluated in the hospital for his persistent chest pressure and shortness of breath that is worsened with exertion. He states that he signed out against medical advice because he felt that he could just rest at home. The patient states that lying flat and resting alleviates his symptoms. He states that he cannot walk more than thirty feet without becoming short of breath or experiencing chest pressure. The patient denies any alcohol or tobacco use. He denies any abdominal pain or vomiting. The patient states that he ran out of his Plavix and states that he is awaiting his pharmacy to order. He states that he has a history of 8 previous cardiac catheterizations, noting that his most recent was in January of 2016. The patient additionally reports that he has been following with the wound clinic for an ulceration on his foot. He denies any recent weight gain. Source of History: patient Onset: several days ago Position: other (global) Quality: other (shortness of breath) Timing: other (persistent) Modifying Factors (Worsening): exertion Modifying Factors (Relieving): rest Associated Symptoms: + chest pain (pressure), No vomiting, No abdominal pain Review of Systems See HPI for pertinent positives & negatives. A total of 10 systems reviewed and were otherwise negative. Past Medical & Surgical Medical Problems: (1) Acute exacerbation of CHF (congestive heart failure) (2) CHF (congestive heart failure) (3) Coronary artery disease (4) H/O cardiac pacemaker (5) Hypertension (6) Hypoxia (7) Ischemic cardiomyopathy (8) NSTEMI (non-ST elevated myocardial infarction) Surgical Problems: (1) H/O cardiac catheterization (2) S/P CABG (coronary artery bypass graft) (3) S/P cholecystectomy (4) Stented coronary artery Family History No pertinent family history Social History Smoking Status: Never Smoker Drug Use: none Marital Status: Housing Status: lives alone Occupation Status: employed Current/Historical Medications Scheduled Aspirin (Aspirin Ec), 325 MG PO QAM Bumetanide (Bumex), 2 MG PO QPM Carvedilol (Coreg), 6.25 MG PO BID Clopidogrel (Plavix), 75 MG PO QAM Cyanocobalamin (Cyanocobalamin), 1 ML IM MONTHLY Gabapentin (Neurontin), 600 MG PO QPM Metformin Hcl (Glucophage), 1,000 MG PO BID Pravastatin Sodium (Pravastatin Sodium), 1 TAB PO HS Sacubitril-Valsartan (Entresto 97-103 mg), 1 TAB PO BID Allergies Coded Allergies: No Known Allergies (Unverified , 09/14/16) Physical Exam Vital Signs Date Time Temp Pulse Resp B/P (MAP) Pulse Ox O2 Delivery O2 Flow Rate FiO2 09/14/16 20:25 80 09/14/16 20:00 79 22 121/76 88 Room Air 09/14/16 19:39 91 Room Air 09/14/16 19:39 91 Room Air 09/14/16 19:16 36.8 79 16 121/75 92 Room Air Physical Exam GENERAL: Patient is awake, alert, and in no acute distress. Patient is resting comfortably and showing no signs of anxiety EYES: The conjunctivae are clear. The pupils are round and reactive. EARS, NOSE, MOUTH AND THROAT: The nose is without any evidence of any deformity. Mucous membranes are moist tongue is midline NECK: The neck is nontender and supple. RESPIRATORY: Normal respiratory effort is noted there is no evidence of wheezing rhonchi or rales CARDIOVASCULAR: Regular rate and rhythm noted there no murmurs rubs or gallops normal S1 normal S2 GASTROINTESTINAL: The abdomen is soft. Bowel sounds are present in all quadrants. Abdomen is nontender MUSCULOSKELETAL/EXTREMITIES: There is no evidence of gross deformity full range of motion is noted in the hips and shoulders SKIN: Pedal edema noted bilaterally, skin was warm and dry. NEUROLOGIC: Patient is awake alert and oriented x3. Medical Decision & Procedures ER Provider Diagnostic Interpretation: X-ray results as stated below per interpretation by me and the radiologist. CHEST ONE VIEW PORTABLE CLINICAL HISTORY: EVALUATE RESPIRATORY DISTRESS. DYSPNEA dyspnea COMPARISON STUDY: 09/01/2016 FINDINGS: Stable cardiomegaly. Permanent cardiac pacemaker. Prior median sternotomy. Slight blunting lateral costophrenic angles. Mild increase in pulmonary vasculature. IMPRESSION: Early congestive failure The above report was generated using voice recognition software. It may contain grammatical, syntax or spelling errors. Electronically signed by: Roberto Jim M.D. 09/14/2016 8:00 PM Dictated Date/Time: 09/14/2016 8:00 PM Laboratory Results 09/14/16 19:36 Red Blood Count 3.55, Mean Corpuscular Volume 90.1, Mean Corpuscular Hemoglobin 28.7, Mean Corpuscular Hemoglobin Concent 31.9, Mean Platelet Volume 9.7, Neutrophils (%) (Auto) 71.1, Lymphocytes (%) (Auto) 17.0, Monocytes (%) (Auto) 7.9, Eosinophils (%) (Auto) 3.4, Basophils (%) (Auto) 0.6, Neutrophils # (Auto) 3.51, Lymphocytes # (Auto) 0.84, Monocytes # (Auto) 0.39, Eosinophils # (Auto) 0.17, Basophils # (Auto) 0.03 09/14/16 19:36 Test 09/14/16 00:00 09/14/16 19:36 Urine Color YELLOW Urine Appearance CLEAR (CLEAR) Urine pH 6.0 (4.5-7.5) Urine Specific [place] 1.009 (1.000-1.030) Urine Protein TRACE (NEG) Urine Glucose (UA) NEG (NEG) Urine Ketones NEG (NEG) Urine Occult Blood TRACE (NEG) Urine Nitrite NEG (NEG) Urine Bilirubin NEG (NEG) Urine Urobilinogen NEG (NEG) Urine Leukocyte Esterase NEG (NEG) Urine WBC (Auto) 0 /hpf (0-5) Urine RBC (Auto) 0-4 /hpf (0-4) Urine Hyaline Casts (Auto) 0 /lpf (0-5) Urine Epithelial Cells (Auto) 0-5 /lpf (0-5) Urine Bacteria (Auto) NEG (NEG) White Blood Count 4.94 K/uL (4.8-10.8) Red Blood Count 3.55 M/uL (4.7-6.1) Hemoglobin 10.2 g/dL (14.0-18.0) Hematocrit 32.0 % (42-52) Mean Corpuscular Volume 90.1 fL (80-100) Mean Corpuscular Hemoglobin 28.7 pg (25-34) Mean Corpuscular Hemoglobin Concent 31.9 g/dl (32-36) Platelet Count 294 K/uL (130-400) Mean Platelet Volume 9.7 fL (7.4-10.4) Neutrophils (%) (Auto) 71.1 % Lymphocytes (%) (Auto) 17.0 % Monocytes (%) (Auto) 7.9 % Eosinophils (%) (Auto) 3.4 % Basophils (%) (Auto) 0.6 % Neutrophils # (Auto) 3.51 K/uL (1.4-6.5) Lymphocytes # (Auto) 0.84 K/uL (1.2-3.4) Monocytes # (Auto) 0.39 K/uL (0.11-0.59) Eosinophils # (Auto) 0.17 K/uL (0-0.5) Basophils # (Auto) 0.03 K/uL (0-0.2) RDW Standard Deviation 52.0 fL (36.4-46.3) RDW Coefficient of Variation 15.9 % (11.5-14.5) Immature Granulocyte % (Auto) 0.0 % Immature Granulocyte # (Auto) 0.00 K/uL (0.00-0.02) Prothrombin Time 10.7 SECONDS (9.0-12.0) Prothromb Time International Ratio 1.0 (0.9-1.1) Activated Partial Thromboplast Time 27.8 SECONDS (21.0-31.0) Partial Thromboplastin Ratio 1.1 Anion Gap 7.0 mmol/L (3-11) Est Creatinine Clear Calc Drug Dose 54.3 ml/min Estimated GFR () 46.4 Estimated GFR (Non- 40.0 BUN/Creatinine Ratio 20.4 (10-20) Calcium Level 8.4 mg/dl (8.5-10.1) Total Bilirubin 0.7 mg/dl (0.2-1) Aspartate Amino Transf (AST/SGOT) 11 U/L (15-37) Alanine Aminotransferase (ALT/SGPT) 14 U/L (12-78) Alkaline Phosphatase 144 U/L (45-117) Total Creatine Kinase 121 U/L (39-308) Creatine Kinase MB 1.2 ng/ml (0.5-3.6) Creatine Kinase MB Ratio 1.0 (0-3.0) Pro-B-Type Natriuretic Peptide 4347 pg/ml (0-900) Total Protein 7.8 gm/dl (6.4-8.2) Albumin 3.2 gm/dl (3.4-5.0) Globulin 4.6 gm/dl (2.5-4.0) Albumin/Globulin Ratio 0.7 (0.9-2) Laboratory results per my review. ECG Indication: chest pain, SOB/dyspnea Rate (beats per minute): 78 Rhythm: normal sinus Findings: nonspecific-ST abn (diffuse), Q waves, no ectopy Comparison ECG Date: 09/09/16 Change: no significant change ED Course 1925: The patient was evaluated in room C4. A complete history and physical examination were performed. 2041: I reevaluated the patient and he is resting comfortably. I discussed the exam findings with him and I discussed the treatment plan. He verbalized complete understanding and agreement. He is going to be evaluated for further treatment. 2044: I discussed the patients case with CAROLEE Oakes. He is going to evaluate the patient for further treatment. Medical Decision Differential diagnosis: Etiologies such as cardiac ischemia, aortic dissection, pulmonary embolism, pneumonia, pneumothorax, musculoskeletal, infections, pericarditis, myocarditis , esophageal rupture, gastrointestinal, as well as others were entertained. Nursing notes reviewed. Patient's previous electronic medical records reviewed. The patient is a 61-year-old male who presented to the emergency department for an evaluation of chest discomfort with exertion. The patient was recently admitted to our facility for similar complaints. At that time he is felt to have ischemic cardiopathy. The patient did not stay in the hospital as instructed and signed out AGAINST MEDICAL ADVICE. He returns tonight for continuation of his workup. I discussed the patient's laboratory and radiographic studies with him. I discussed his case with the on-call [facility] hospitalist. They've agreed to evaluate patient in the emergency department for further management and disposition. Medication Reconcilliation Current Medication List: was personally reviewed by me Blood Pressure Screening Patient's blood pressure: Normal blood pressure Blood pressure disposition: Did not require urgent referral Consults Time Called: 2015 Consulting Physician: CAROLEE Oakes Returned Call: [phone] I discussed the patients case with CAROLEE Oakes. He is going to evaluate the patient for further treatment. Impression Primary Impression: Exertional chest pain Additional Impressions: Pulmonary edema Elevated troponin Scribe Attestation The scribe's documentation has been prepared under my direction and personally reviewed by me in its entirety. I confirm that the note above accurately reflects all work, treatment, procedures, and medical decision making performed by me. Departure Information Dispostion Being Evaluated By Hospitalist Referrals BENNY LANDA MD (PCP) Problem Qualifiers Additional Impressions: Pulmonary edema Chronicity: chronic Qualified Codes: J81.1 - Chronic pulmonary edema
[2016-09-14] MEDS ORDERED: CLOP1TAB15 PO (19:42)
[2016-09-14 19:48] LABS: BASO % 0.6 %; BASO ABS # 0.03 K/uL (0-0.2); COMPLETE YES; EOS % 3.4 %; LYMPH ABS # 0.84 K/uL (1.2-3.4); MEAN CELL VOLUME 90.1 fL (80-100); MEAN CORPUSCULAR HEMOGLOBIN 28.7 pg (25-34); MEAN CORPUSCULAR HGB CONC 31.9 g/dl (32-36); MEAN PLATELET VOLUME 9.7 fL (7.4-10.4); MONO % 7.9 %; NEUT % 71.1 %; PLATELET COUNT 294 K/uL (130-400); RED BLOOD COUNT 3.55 M/uL (4.7-6.1); WHITE BLOOD COUNT 4.94 K/uL (4.8-10.8)
[2016-09-14 19:58] LABS: PARTIAL THROMBOPLASTIN RATIO 1.1; PROTHROMBIN TIME (PATIENT) 10.7 SECONDS (9.0-12.0)
--- NOTE | 2016-09-14 20:02 | DIAGNOSTIC IMAGING REPORT ---
CHEST ONE VIEW PORTABLE CLINICAL HISTORY: EVALUATE RESPIRATORY DISTRESS. DYSPNEA dyspnea COMPARISON STUDY: 09/01/2016 FINDINGS: Stable cardiomegaly. Permanent cardiac pacemaker. Prior median sternotomy. Slight blunting lateral costophrenic angles. Mild increase in pulmonary vasculature. IMPRESSION: Early congestive failure The above report was generated using voice recognition software. It may contain grammatical, syntax or spelling errors. Electronically signed by: Roberto Jim M.D. 09/14/2016 8:00 PM Dictated Date/Time: 09/14/2016 8:00 PM
[2016-09-14 20:03] LABS: BUN/CREATININE RATIO 20.4 (10-20); CALCIUM 8.4 mg/dl (8.5-10.1); CREATININE 1.8 mg/dl (0.60-1.40); POTASSIUM 4.6 mmol/L (3.5-5.1)
[2016-09-14 20:12] LABS: ALB/GLOB RATIO 0.7 (0.9-2)
[2016-09-14] MEDS ORDERED: ACETAMINOPHEN 325 MG TAB PO PRN (20:30)
[2016-09-14] MEDS ORDERED: ALUMINUM/MAGNESIUM/SIMETH (MAALOX MAX) 30 ML UDC PO PRN (20:30)
[2016-09-14] MEDS ORDERED: MAGNESIUM HYDROXIDE SUSP 30 ML UDC PO PRN (20:30)
[2016-09-14] MEDS ORDERED: MoRPHine SULFATE 2 MG/ML CARP IV PRN (20:30)
[2016-09-14] MEDS ORDERED: NITROGLYCERIN 0.4 MG SL PER TAB CHARGE SL PRN (20:30)
[2016-09-14] MEDS ORDERED: POLYETHYLENE (MIRALAX) 17 GM PACK PO PRN (20:30)
[2016-09-14] MEDS ORDERED: ZOLPIDEM TARTRATE 5 MG TAB PO PRN (20:30)
[2016-09-14] MEDS ORDERED: ONDANSETRON INJ 2 MG/ML 2 ML VIAL IV PRN (20:30)
[2016-09-14] MEDS ORDERED: BUMETANIDE SOLN 1 MG/4 ML VIAL IV ONE (20:40)
[2016-09-14] MEDS ORDERED: BUMETANIDE SOLN 1 MG/4 ML VIAL IV STA (20:47)
[2016-09-14] MEDS ORDERED: BUMETANIDE IV 2 MG in SYRINGE 0 ML IV SCH (21:00)
[2016-09-14] MEDS ORDERED: GLUCAGON FOR INJ 1 MG VIAL SQ PRN (21:30)
[2016-09-14] MEDS ORDERED: DEXTROSE 50% 50 ML SYR IV PRN (21:30)
[2016-09-14] MEDS ORDERED: GLUCOSE 40% GEL 15 GM TUBE PO PRN (21:30)
[2016-09-14] MEDS ORDERED: GLUCOSE 10 TABS/TUBE PO PRN (21:30)
--- NOTE | 2016-09-14 21:30 | History and Physical ---
History & Physical Date & Time of Service: Sep 14, 2016 at 20:53 Chief Complaint: Heart- Chf-Difficulty Breathing Primary Care Physician: Neha Wilson M.D. History of Present Illness Source: patient 61 y/o M Hx CAD, Chronic mixed CHF, DM2, CKD 2-3, pacer, mutliple cardiac caths , chronic R foot ulcer. Pt was recently hospitalized for CP and SOB. He was scheduled for a cath on a Monday to be completed on Monday and signed himself out AMA as he did not wish to pay for an overnight stay in the hospital. 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 For the past several days, he states he is unable to tolerate minimal activity without experiencing central chest pressure and SOB. He presents again to the hospital stating that he needs a catheterization. Initial labs show an elevated troponin which is however at baseline, anemia and CKD which are also approximately at baseline. A CXR reveals increasing vascular congestion. Past Medical/Surgical History Medical Problems: (1) CHF (congestive heart failure) Status: Chronic systolic and diastolic EF 40% (2) Coronary artery disease Status: Chronic - multiple caths/stents (3) H/O cardiac pacemaker Status: Resolved (4) Hypertension Status: Chronic 5) B12 deficiency 6) CKD 2-3 - baseline creat 1.5-1.8 7) Chronic anemia - baseline Hb 9-10 Surgical Problems: (1) H/O cardiac catheterization Status: Resolved (2) S/P CABG (coronary artery bypass graft) Status: Resolved (3) S/P cholecystectomy Status: Resolved (4) Stented coronary artery Status: Resolved Family History No pertinent family history Social History Does not drink or smoke - 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 [employer] Smoking Status: Never Smoker Drug Use: none Marital Status: Housing status: lives with family Occupational Status: employed Multi-Drug Resistant Organisms History of MDRO: Yes Type of MDRO: MRSA Allergies Coded Allergies: No Known Allergies (Unverified , 09/14/16) Home Medications Scheduled Aspirin (Aspirin Ec), 325 MG PO QAM Bumetanide (Bumex), 2 MG PO QPM Carvedilol (Coreg), 6.25 MG PO BID Clopidogrel (Plavix), 75 MG PO QAM Cyanocobalamin (Cyanocobalamin), 1 ML IM MONTHLY Gabapentin (Neurontin), 600 MG PO QPM Metformin Hcl (Glucophage), 1,000 MG PO BID Pravastatin Sodium (Pravastatin Sodium), 1 TAB PO HS Sacubitril-Valsartan (Entresto 97-103 mg), 1 TAB PO BID Review of Systems Constitutional: No fever, No chills, No sweats Eyes: No worsening of vision ENT: No hearing loss, No unusual epistaxis, No nasal symptoms Respiratory: + shortness of breath, + dyspnea on exertion, No cough, No sputum , No wheezing, No dyspnea at rest Cardiovascular: + chest pain (exertional) Abdomen: No pain, No nausea, No vomiting Musculoskeletal: No joint pain Genitourinary - Male: No hematuria, No dysuria, No urinary frequency Neurologic: No memory loss, No paralysis, No weakness Psychiatric: No depression symptoms Endocrine: No fatigue Hematologic / Lymphatic: No abnormal bleeding/bruising Integumentary: No rash Allergic / Immunologic: No environmental allergies Physical Exam Vital Signs Date Time Temp Pulse Resp B/P (MAP) Pulse Ox O2 Delivery O2 Flow Rate FiO2 09/14/16 20:00 79 22 121/76 88 Room Air 09/14/16 19:39 91 Room Air 09/14/16 19:39 91 Room Air 09/14/16 19:16 36.8 79 16 121/75 92 Room Air General Appearance: WD/WN, no apparent distress Head: normocephalic Eyes: normal inspection ENT: normal ENT inspection, hearing grossly normal, TMs normal Neck: supple Respiratory/Chest: chest non-tender, lungs clear, normal breath sounds Cardiovascular: regular rate, rhythm, no edema, + systolic murmur Abdomen/GI: normal bowel sounds, non tender, soft Back: normal inspection, no CVA tenderness Extremities/Musculoskelatal: normal inspection, no calf tenderness, normal capillary refill, + pedal edema, + pertinent finding (ulcer on R great toe - no evidence of acute infection) 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, no motor/sensory deficits, alert, normal mood/affect, normal reflexes, oriented x 3 Skin: normal color, + pertinent finding (R great toe ulcer) Diagnostics Laboratory Results Results Past 24 Hours Test 09/14/16 19:36 Range/Units White Blood Count 4.94 4.8-10.8 K/uL Red Blood Count 3.55 4.7-6.1 M/uL Hemoglobin 10.2 14.0-18.0 g/dL Hematocrit 32.0 42-52 % Mean Corpuscular Volume 90.1 80-100 fL Mean Corpuscular Hemoglobin 28.7 25-34 pg Mean Corpuscular Hemoglobin Concent 31.9 32-36 g/dl Platelet Count 294 130-400 K/uL Mean Platelet Volume 9.7 7.4-10.4 fL Neutrophils (%) (Auto) 71.1 % Lymphocytes (%) (Auto) 17.0 % Monocytes (%) (Auto) 7.9 % Eosinophils (%) (Auto) 3.4 % Basophils (%) (Auto) 0.6 % Neutrophils # (Auto) 3.51 1.4-6.5 K/uL Lymphocytes # (Auto) 0.84 1.2-3.4 K/uL Monocytes # (Auto) 0.39 0.11-0.59 K/uL Eosinophils # (Auto) 0.17 0-0.5 K/uL Basophils # (Auto) 0.03 0-0.2 K/uL RDW Standard Deviation 52.0 36.4-46.3 fL RDW Coefficient of Variation 15.9 11.5-14.5 % Immature Granulocyte % (Auto) 0.0 % Immature Granulocyte # (Auto) 0.00 0.00-0.02 K/uL Prothrombin Time 10.7 9.0-12.0 SECONDS Prothromb Time International Ratio 1.0 0.9-1.1 Activated Partial Thromboplast Time 27.8 21.0-31.0 SECONDS Partial Thromboplastin Ratio 1.1 Sodium Level 139 136-145 mmol/L Potassium Level 4.6 3.5-5.1 mmol/L Chloride Level 106 98-107 mmol/L Carbon Dioxide Level 26 21-32 mmol/L Anion Gap 7.0 3-11 mmol/L Blood Urea Nitrogen 37 7-18 mg/dl Creatinine 1.80 0.60-1.40 mg/dl Est Creatinine Clear Calc Drug Dose 54.3 ml/min Estimated GFR () 46.4 Estimated GFR (Non- 40.0 BUN/Creatinine Ratio 20.4 10-20 Random Glucose 191 70-99 mg/dl Calcium Level 8.4 8.5-10.1 mg/dl Total Bilirubin 0.7 0.2-1 mg/dl Aspartate Amino Transf (AST/SGOT) 11 15-37 U/L Alanine Aminotransferase (ALT/SGPT) 14 12-78 U/L Alkaline Phosphatase 144 45-117 U/L Total Creatine Kinase 121 39-308 U/L Creatine Kinase MB 1.2 0.5-3.6 ng/ml Creatine Kinase MB Ratio 1.0 0-3.0 Troponin I 0.776 0-0.045 ng/ml Pro-B-Type Natriuretic Peptide 4347 0-900 pg/ml Total Protein 7.8 6.4-8.2 gm/dl Albumin 3.2 3.4-5.0 gm/dl Globulin 4.6 2.5-4.0 gm/dl Albumin/Globulin Ratio 0.7 0.9-2 Diagnostic Radiology Vascular congestion/CHF EKG Sinus - RBBB - no acute ischemic changes Impression Assessment and Plan 61 y/o M Hx CAD, Chronic mixed CHF, DM2, CKD 2-3, pacer, mutliple cardiac caths , chronic R foot ulcer. Pt was recently hospitalized for CP and SOB. He was scheduled for a cath on a Monday to be completed on Monday and signed himself out AMA as he did not wish to pay for an overnight stay in the hospital. 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 For the past several days, he states he is unable to tolerate minimal activity without experiencing central chest pressure and SOB. He presents again to the hospital stating that he needs a catheterization. Initial labs show an elevated troponin which is however at baseline, anemia and CKD which are also approximately at baseline. A CXR reveals increasing vascular congestion. 1) Exertional CP - Pt is insisting that he needs a cath. He has documented widespread disease, however, it is unclear if this will help at present and he does have underlying CKD which may worsen. We will treat him symptomatically overnight and consult his middle school director to advise if intervention is needed. Cont Plavix, Bblocker, Statin. Troponin is elevated but not above baseline - we will trend. 2) Dyspnea - CHF - chronic mixed - pt will receive an additional dose of Bumex pending AM eval by his middle school director. Unclear if his volume status is solely responsible for his current dyspnea. Recent echo revealed an EF of 40% with diastolic dysfunction. 3) CKD - Creat is high normal and will be rechecked AM to determine if effect of additional Bumex. 4) Anemia - chronic - Hb is at baseline 5) Foot ulcer - can f/u at wound clinic Full code - Heparin prophylaxis Total time for this admit including review of labs, meds, imaging, EKG - discussion with pt and ER attending 40 min Level of Care Telemetry VTE Prophylaxis VTE Risk Assessment Done? Y/N: Yes Risk Level: Moderate Given or contraindicated: Unfractionated heparin SQ
[2016-09-14 22:36] LABS: URINE APPEARANCE CLEAR (CLEAR); URINE BILIRUBIN NEG (NEG); URINE COLOR YELLOW; URINE EPITHELIAL CELL AUTO 0-5 /lpf (0-5); URINE NITRITE NEG (NEG); URINE SPECIFIC GRAVITY 1.009 (1.000-1.030); UROBILINOGEN NEG (NEG)
[2016-09-14 22:39] LABS: MANUAL MICROSCOPIC REQUIRED? NO; REVIEW REQ? NO
[2016-09-14 23:11] VITALS: BP 130/76; PULSE 71; TEMP 37.1; O2SAT 92; Ht 185.4 cm; Wt 100.4 kg
[2016-09-15] MEDS: PRAVASTATIN SOD 40 MG TAB PO SCH ×2 (02:03→20:28)
[2016-09-15] MEDS: GABAPENTIN 300 MG CAP PO SCH ×2 (02:03→20:28)
[2016-09-15] MEDS: HEPARIN SOD 5000 UNIT/0.5 ML CARP SQ SCH ×4 (02:05→20:23)
[2016-09-15] MEDS: NITROGLYCERIN OINT 2% 1GM PACKET EXT SCH ×5 (02:05→23:39)
[2016-09-15] MEDS: INSULIN ASPART 100 UNITS/ML 3 ML PEN SC SCH ×5 (02:08→20:29)
[2016-09-15] MEDS: SACUBITRIL-VALSARTAN 49-51 MG TAB PO SCH ×3 (02:08→20:27)
[2016-09-15] MEDS: CARVEDILOL 6.25 MG TAB PO SCH ×3 (02:08→20:27)
[2016-09-15] MEDS: BUMETANIDE 1 MG TAB PO SCH ×2 (02:08→20:27)
[2016-09-15 04:21] VITALS: BP 127/81; PULSE 68; TEMP 37; O2SAT 93
[2016-09-15 05:54] LABS: BUN/CREATININE RATIO 24.6 (10-20); CALCIUM 8.5 mg/dl (8.5-10.1); CREATININE 1.4 mg/dl (0.60-1.40); POTASSIUM 4.3 mmol/L (3.5-5.1)
[2016-09-15 07:15] VITALS: BP 122/79; PULSE 65; TEMP 37.1; O2SAT 92
[2016-09-15] MEDS: CLOPIDOGREL BISULFATE 75 MG TAB PO SCH (10:14)
[2016-09-15] MEDS: ASPIRIN 325 MG ECTAB PO SCH (10:14)
--- NOTE | 2016-09-15 10:31 | CARDIOLOGY CONSULTATION ---
DATE OF CONSULTATION: 09/15/2016 DATE OF CONSULTATION: 09/15/2016 REQUESTING PHYSICIAN: Keyur Glover. Dear Dr. Glover, It was a pleasure to see Adams today in consultation with regards to his chest pressure and shortness of breath. Approximately 3 weeks ago, he flew to [place], [place] for a business meeting and then flew back. A week later, he flew to [place] again for a meeting. When he arrived in [place] he describes having chest tightness and chest pressure and shortness of breath with ambulation. It notes it was definitely worse than it had been in the previous 3-4 weeks. He notes before flying to [place] he actually had felt relatively well. His dyspnea was relatively well controlled. He had no worsening lower extremity edema or abdominal distention. He notes since he flew back from [place] the symptoms of chest tightness with activity and a decline in his exercise capacity have persisted, he has had no resting symptoms. He denies any calf tenderness. He denies any lightheadedness, dizziness, presyncope, syncope. Denies any palpitations, fluttering, skips. He denies any PND, orthopnea. He believes his weight has been relatively stable. Denies any increased abdominal distention or other heart failure symptoms. He denies any bleeding, bruising, dark stools or black stools. He had one episode of fever. He has been wearing a boot due to his infected toe and continues to follow in the wound clinic. The rest of review of systems is otherwise negative. PAST MEDICAL HISTORY: 1. Coronary artery disease status coronary bypass grafting x2 with MALDONADO to the LAD and SVG to OM1. 2. Cardiac catheterization January 2016 unchanged from his prior cardiac catheterizations and no evidence of pericardial constriction. 3. Cardiac catheterization 03/24/2015 severe proximal LAD disease with a patent MALDONADO to the LAD, severe stenosis of OM1 with a patent graft to OM1, severe disease and a small OM2 with mild to moderate disease in the right coronary artery. 4. Cardiac catheterization November 2014 severe proximal LAD disease with a POBA to OM2. 5. Moderate ischemic cardiomyopathy with an ejection fraction in the range of 35-40%. 6. Single chamber defibrillator with a [employer] Vince device. 7. Diabetes mellitus type 2. 8. Hypertension. 9. Extensive secondhand tobacco exposure. 10. Chronic systolic heart failure, [place] Heart Association class 2-3. 11. Incomplete right bundle branch block. 12. Non-ST elevation myocardial infarction with peak troponin of 4.October. 13. Aspiration pneumonitis post-anesthesia October 2015. MEDICATIONS: Reviewed in electronic medical record. ALLERGIES: No known drug allergies. SOCIAL HISTORY: Lifetime nonsmoker, has 4/5 drinks a year. He is . He recently stepped down from a position at [employer] and will be working in [place] for [employer]. FAMILY HISTORY: Significant for premature heart disease. PHYSICAL EXAMINATION: GENERAL: He is awake, alert, oriented x3. He is in no acute distress at rest. VITAL SIGNS: His heart rate is 65, respirations 20, blood pressure 122/79, pulse ox 92%. HEAD, EYES, EARS, NOSE, AND THROAT: Mildly reduced carotid upstrokes. No evidence of carotid bruits. Jugular venous pressure does not appear elevated. His sclerae is anicteric. Hearing is normal. LUNGS: Clear to auscultation bilaterally. No rales, rhonchi or wheezing. HEART: Regular rate and rhythm. No appreciable murmurs, rubs or gallops. ABDOMEN: Soft, nontender, nondistended, positive bowel sounds. EXTREMITIES: No clubbing, cyanosis or edema. PSYCHIATRIC: His affect appeared appropriate. EKG 09/14/2016 sinus rhythm, first degree AV block, left atrial abnormality, right bundle branch block, anterior septal NH age indeterminate, pacemaker spikes of undetermined etiology not capturing either the atrial or the ventricle. LABORATORY STUDIES: Reviewed in detail. His BNP was in the 4000s. His hemoglobin is 10.2, which is stable. Platelets are 294. His troponin is chronically elevated and is 0.748. His BUN is 34, creatinine 1.4. Chest x-ray was read as mild congestive heart failure. IMPRESSION: 1. New onset chest tightness and chest pressure and shortness of breath with activity with multiple recent airline flights. As I discussed with Dr. Glover there is concern that this could be a pulmonary embolism but he had a low probability VQ scan. It is strange that he has pacer spikes (artifact with normal device interrogation) on his EKG. We will have [facility] Vince interrogate his device. 2. Chronic systolic heart failure remaining functional class 2-3 which is stable. 3. Moderate ischemic cardiomyopathy. 4. Chronic kidney disease with creatinine of 1.5. 5. Coronary disease status coronary bypass grafting x2 December 2013. 6. Multiple catheterizations, most recent January 2016 with a patent MALDONADO to the LAD and a patent vein graft to OM1, OM2 with small and diffusely diseased. There was only mild to moderate RCA disease. There was no evidence of constriction. 8. Incomplete right bundle branch block without any change on his EKG. At this point, he will remain on the rest of his cardiac regimen and clinically does not sound like he is in heart failure. His abdomen is soft. He has no lower extremity edema. Will first rule out a pulmonary embolism. Additionally will have [employer] Vince interrogate his pacemaker to determine if that could be contributing to his symptoms. If all that is negative, then we may need to consider repeat cardiac catheterization tomorrow. Thank you for allowing me to participate in his care. JULIAN
[2016-09-15 11:34] VITALS: BP 108/70; PULSE 66; TEMP 36.9; O2SAT 94
[2016-09-15 15:25] VITALS: BP 102/62; PULSE 62; TEMP 36.6; O2SAT 93
[2016-09-15 19:11] VITALS: BP 121/77; PULSE 60; TEMP 36.8; O2SAT 92
[2016-09-16] VITALS (17 sets, daily range): BP systolic 97–126; BP diastolic 58–79; PULSE 48–70; TEMP 36.3–37.3; O2SAT 91–97
[2016-09-16] MEDS: HEPARIN SOD 5000 UNIT/0.5 ML CARP SQ SCH ×3 (05:29→19:51)
[2016-09-16] MEDS: NITROGLYCERIN OINT 2% 1GM PACKET EXT SCH ×3 (05:29→17:02)
--- NOTE | 2016-09-16 06:02 | Progress Note ---
Subjective Date of Service: late entry for visit Sep 15, 2016. Subjective Pt evaluation today including: conversation w/ patient, physical exam, chart review, lab review, conversation w/ environmental consultant (cardiology Dr. Arshad) Pain: denies chest pain PO Intake: normal Voiding: no voiding problems tele stable since admission pacer interrogation done- good pacer function several runs of NSVT and SVT no shocks at any time patient reports no orthopnea, dyspnea at rest or chest pain gets "chest tightness" with activity along with significant dyspnea feels about the same as when he first came to hospital Problem List Medical Problems: (1) Elevated troponin Status: Acute (2) Elevated troponin Status: Acute (3) Elevated troponin I level Status: Acute (4) Exertional chest pain Status: Acute (5) NSTEMI (non-ST elevated myocardial infarction) Status: Acute (6) Pulmonary edema Status: Acute (7) Pulmonary edema Status: Acute (8) SOB (shortness of breath) Status: Acute Review of Systems Constitutional: No fever Respiratory: No cough, No sputum, No wheezing Cardiac: No orthopnea, No PND, No edema Objective Vital Signs Date Time Temp Pulse Resp B/P (MAP) Pulse Ox O2 Delivery O2 Flow Rate FiO2 09/16/16 04:00 Room Air 09/16/16 03:52 36.7 57 19 97/58 (71) 96 Room Air 09/16/16 00:15 37.1 65 16 118/73 (88) 95 Room Air 09/15/16 23:59 Room Air 09/15/16 19:42 Room Air 09/15/16 19:11 36.8 60 19 121/77 (92) 92 Room Air 09/15/16 16:00 Room Air 09/15/16 15:25 36.6 62 16 102/62 (75) 93 Room Air 09/15/16 12:00 Room Air 09/15/16 11:34 36.9 66 20 108/70 (83) 94 Room Air 09/15/16 08:00 Room Air 09/15/16 07:15 37.1 65 20 122/79 (93) 92 Room Air Physical Exam General Appearance: no apparent distress ENT: pharynx normal Neck: no JVD Respiratory/Chest: lungs clear, no respiratory distress, no accessory muscle use Cardiovascular: regular rate, rhythm, no gallop, no murmur Abdomen: normal bowel sounds, non tender, soft, no organomegaly Extremities: no pedal edema Neurologic/Psychiatric: alert, oriented x 3 Laboratory Results Last 24 Hours Test 09/15/16 06:54 09/15/16 11:10 09/15/16 11:34 09/15/16 16:10 Bedside Glucose 136 mg/dl 140 mg/dl 233 mg/dl Troponin I 0.821 ng/ml Test 09/15/16 17:09 09/15/16 20:18 09/15/16 22:49 Troponin I 0.757 ng/ml 0.778 ng/ml Bedside Glucose 239 mg/dl Assessment and Plan 61yo male: 1. chest tightness, dyspnea - for heart cath in AM in light of known, extensive CAD. Does not appear to have any decompensated CHF at this time. Lungs are clear - doubt primary lung disease but not 100% ruled out. No evidence of infectious process. VQ scan on 09/09 with low prob for PE. If heart cath is unrevealing then would probably perform CT chest to be complete. 2. chronic systolic CHF - compensated at this time. May have had mild amount of acute CHF at ER presentation and did in fact receive IV bumex but again appears compensated today. Cont BB, bumex, entresto. 3. acute kidney injury - 2nd to acute CHF? improved this am. baseline Cr is 1.4-1.8 range. 4. +troponin - chronically elevated. Could be due to #3, CHF, etc. Doubt true ACS. 5. HTN - controlled. 6. T2DM - reasonable control. 7. CAD - cath in am. cont asa, plavix, BB, statin, ARB. 8. DVT proph - heparin TID. Continued [facility] stay due to: multiple IV medications needed, other (need for heart cath) Discharge planning: home
[2016-09-16 06:43] LABS: BUN/CREATININE RATIO 24.1 (10-20); CALCIUM 8.5 mg/dl (8.5-10.1); CREATININE 1.5 mg/dl (0.60-1.40); MAGNESIUM 2.1 mg/dl (1.8-2.4); POTASSIUM 4.4 mmol/L (3.5-5.1)
[2016-09-16] MEDS: ASPIRIN 325 MG ECTAB PO SCH (07:49)
[2016-09-16] MEDS: CARVEDILOL 6.25 MG TAB PO SCH ×2 (07:49→19:47)
[2016-09-16] MEDS: SACUBITRIL-VALSARTAN 49-51 MG TAB PO SCH ×2 (07:50→19:47)
[2016-09-16] MEDS: CLOPIDOGREL BISULFATE 75 MG TAB PO SCH (07:50)
[2016-09-16] MEDS: INSULIN ASPART 100 UNITS/ML 3 ML PEN SC SCH ×4 (07:52→19:50)
--- NOTE | 2016-09-16 08:22 | Cardiology Follow-Up ---
Subjective General Date of Service: Sep 16, 2016. Pt evaluation today including: conversation w/ patient, chart review, lab review, review of studies, conversation w/ dairy feed sales consultant History of Present Illness The patient is a 61 year old male Allergies Coded Allergies: No Known Allergies (Unverified , 09/14/16) Social History Smoking Status: Never Smoker Hx Tobacco Use In Past Year?: No Hx Alcohol Use - Type And Amou: Yes (rare) Hx Substance Use - Type And Am: No Problem List Medical Problems: (1) Elevated troponin Status: Acute (2) Elevated troponin Status: Acute (3) Elevated troponin I level Status: Acute (4) Exertional chest pain Status: Acute (5) NSTEMI (non-ST elevated myocardial infarction) Status: Acute (6) Pulmonary edema Status: Acute (7) Pulmonary edema Status: Acute (8) SOB (shortness of breath) Status: Acute Review of Systems Respiratory: No shortness of breath, No dyspnea at rest Cardiac: No chest pain (at rest), No edema, No palpitations Physical Exam Vital Signs Last Vital Signs Documentation Date Time Temp Pulse Resp B/P (MAP) Pulse Ox O2 Delivery O2 Flow Rate FiO2 09/16/16 07:15 36.9 62 18 119/77 (91) 93 Room Air Physical Exam Constitutional: Level of Distress: chronically ill Lungs: Respiratory effort: no dyspnea Auscultation: breath sounds normal, no wheezing, no rales/crackles, no rhonchi Cardiovascular: Heart Auscultation: RRR, no murmurs, no rubs, no gallops Abdomen: Bowel Sounds: normal Inspection & Palpation: soft, non-distended, no tenderness, guarding & rebound Extremities: no edema Assessment and Plan Assessment and Plan 1A. New onset CP with exertion --possible [place] with chronic Troponin elevation, low Prob V/Q, and normal device interrogation 1B. Coronary artery disease status coronary bypass grafting x2 with MALDONADO to the LAD and SVG to OM1. 2. Cardiac catheterization January 2016 unchanged from his prior cardiac catheterizations and no evidence of pericardial constriction. 3. Cardiac catheterization 03/24/2015 severe proximal LAD disease with a patent MALDONADO to the LAD, severe stenosis of OM1 with a patent graft to OM1, severe disease and a small OM2 with mild to moderate disease in the right coronary artery. 4. Cardiac catheterization November 2014 severe proximal LAD disease with a POBA to OM2. 5. Moderate ischemic cardiomyopathy with an ejection fraction in the range of 35-40%. 6. Single chamber defibrillator with a [employer] Vince device. 7. Diabetes mellitus type 2. 8. Hypertension. 9. Extensive secondhand tobacco exposure. 10. Chronic systolic heart failure, [place] Heart Association class 2-3. 11. Incomplete right bundle branch block. 12. Non-ST elevation myocardial infarction with peak troponin of 4.October. 13. Aspiration pneumonitis post-anesthesia October 2015. D/w Dr renee and Dr Saldana. Plan right and left heart cath today to define anatomy. Risks and benefits discussed with the patient in detail including but not limited to NH/CVA// bleeding/infection/renal failure. Will give 500 cc NSS prior to cath with FURNITURE PAINTER 1.5. Laboratory Results Last 24 Hours Test 09/15/16 11:10 09/15/16 11:34 09/15/16 16:10 09/15/16 17:09 Troponin I 0.821 ng/ml 0.757 ng/ml Bedside Glucose 140 mg/dl 233 mg/dl Test 09/15/16 20:18 09/15/16 22:49 09/16/16 05:53 09/16/16 06:39 Bedside Glucose 239 mg/dl 171 mg/dl Troponin I 0.778 ng/ml Sodium Level 138 mmol/L Potassium Level 4.4 mmol/L Chloride Level 104 mmol/L Carbon Dioxide Level 28 mmol/L Anion Gap 6.0 mmol/L Blood Urea Nitrogen 36 mg/dl Creatinine 1.50 mg/dl Est Creatinine Clear Calc Drug Dose 65.4 ml/min Estimated GFR () 57.8 Estimated GFR (Non- 49.9 BUN/Creatinine Ratio 24.1 Random Glucose 180 mg/dl Calcium Level 8.5 mg/dl Magnesium Level 2.1 mg/dl
[2016-09-16] MEDS ORDERED: SODIUM CHLORIDE 0.9% 500ML 500 ML IV ONE (08:30)
[2016-09-16] MEDS ORDERED: MIDAZOLAM HCL 1 MG/ML 2ML VIAL ONE (11:46)
[2016-09-16] MEDS ORDERED: FENTANYL CITRATE INJ 50 MCG/1 ML 2 ML VIAL ONE (11:46)
--- NOTE | 2016-09-16 12:52 | Procedure Note ---
Pre-Mod Sedation Assessment General Date of Moderate Sedation: Sep 16, 2016. Vital Signs: Vital Signs Past 12 Hours Date Time Temp Pulse Resp B/P (MAP) Pulse Ox O2 Delivery O2 Flow Rate FiO2 09/16/16 12:47 60 16 118/73 (88) 98 Mask 2 09/16/16 11:00 36.8 64 18 126/78 (94) 93 Room Air 09/16/16 10:20 36.9 62 18 119/77 93 Room Air 09/16/16 08:00 Room Air 09/16/16 07:15 36.9 62 18 119/77 (91) 93 Room Air 09/16/16 04:00 Room Air 09/16/16 03:52 36.7 57 19 97/58 (71) 96 Room Air Review Cardiovascular: regular rate, rhythm, no edema Abdomen: normal bowel sounds, non tender Lungs: chest non-tender, lungs clear Airway Class: II Pre-Sedation Airway Assessment Oral Cavity: WNL Able to Visualize Vocal Cords: No Short Thick Neck: No Hx of Sleep Apnea: No Smoking Status: Never Smoker Mallampati Classification: Class II ASA Classification: Class III Procedure Planning Contraindications-for Mod Sed: None Yes Notes The planned sedation has been discussed with the patient and consent obtained. I have identified the patient, determined the appropriateness of sedation and have assessed the patient immediately prior to the procedure. All medicine(s) and interventions are by my order.
--- NOTE | 2016-09-16 12:53 | Procedure Note ---
Post-Mod Sedation Assessment General Date of Moderate Sedation Sep 16, 2016. Vital Signs: Vital Signs Past 12 Hours Date Time Temp Pulse Resp B/P (MAP) Pulse Ox O2 Delivery O2 Flow Rate FiO2 09/16/16 12:47 60 16 118/73 (88) 98 Mask 2 09/16/16 11:00 36.8 64 18 126/78 (94) 93 Room Air 09/16/16 10:20 36.9 62 18 119/77 93 Room Air 09/16/16 08:00 Room Air 09/16/16 07:15 36.9 62 18 119/77 (91) 93 Room Air 09/16/16 04:00 Room Air 09/16/16 03:52 36.7 57 19 97/58 (71) 96 Room Air Review - Discharge Criteria Vital Signs Stable: Yes Alert/Oriented/Conversant: Yes Returned to Baseline Mental St: Yes Nausea Absent/Minimal: Yes Pain/Discomfort/Absent/Minimal: Yes Normal/Baseline Respirations: Yes Active Bleeding?: No Pt Received D/C Instructions: N/A Prescriptions Given: None Specific Proced. D/C Criteria Distal Pulses Present (Cardiac: Yes Groin site assessed-Card Cath: Yes Voided Prior To Discharge: N/A Discharged Patients Adult Escort/Transportation: Yes
[2016-09-16] MEDS ORDERED: SODIUM CHLORIDE 0.9% 1000ML 1,000 ML IV SCH (13:18)
--- NOTE | 2016-09-16 13:18 | Cardiac Catheterization ---
Procedure Note Procedure Date Sep 16, 2016. Pre-Procedure Diagnosis Angina, Cardiomyopathy AUC Score 7 Post-Procedure Diagnosis Severe CAD, Normal Intracardiac Pressures Procedure(s) Performed Coronary Angiography, Left Heart Cath, Right Heart Cath, Bypass Graft Angiography, Femoral Artery Angiography Document Processing Specialist Marko Coagulating Drying Supervisor(s) Ray Estimated Blood Loss 15 Medication(s) Fentanyl, Versed, Lidocaine 1% Summary of Findings Indication: H/o CABG, prior PTCA and ICM/HFrEF. Recurrent exertional chest tightness, CCS III Access: 5Fr Right Femoral Artery; 7Fr Right Femoral Vein Catheters: JR4, JL4; [place] Findings: LM - Angiographically normal LAD - Moderate caliber vessel, 80-90% proximal stenosis; diffuse 95% mid segment disease with competitive flow from MALDONADO. Distal LAD after anastomosis wraps around apex with minimal disease. Small 1st diagonal with mild diffuse disease. Circumflex - Co-dominant, moderate caliber vessel with minimal disease proximally. OM1 with 50-60% proximal stenosis and competitive flow. OM2 small vessel with 40% proximal stenosis. RCA - Co-dominant, large caliber vessel with 20-30% proximal stenosis; mild mid segment disease, luminal irregularities in distal vessel and PDA. SVG-OM1 - widely patent MALDONADO-LAD - widely patent and retrofills small 2nd diagonal RA 2 RV 44/4 PA 45/15 (26) PCW 11 LVEDP 20 PaSat 59% AoSat 99% [place] CO/CI 5.3/2.3 Thermo CO/CI 4.4/2.0 Arterial Closure: Mynx; Manual for venous closure Summary: 1. Single vessel severe coronary artery disease - 80% proximal LAD before take-off of small 1st diagonal; 95% mid LAD stenosis (Not significantly changed from cath report from [facility] [place] 01/2016) 2. Widely patent MALDONADO-LAD, SVG-OM 3. Mildly elevated LVEDP. Borderline pulmonary hypertension. 4. Preserved cardiac output. Recommendations: Continue antianginal therapy for residual CAD. If absolutely refractory symptoms to medical management PTCA of proximal LAD into 1st diagonal could be considered. Continued ASCVD risk factor modification and follow-up with Dr. Arshad. Hemodynamics Rest Ao: 104/57/76 Final Ao: 102/62/80 LV: 112/25 Recommendations Medical therapy and/or Counseling Specimens None Radiation Exposure (mGy) 2306 Contrast (mls) 85 Fluids (cc crystalloids) 100 Drains None Anesthesia Moderate Procedural Complication(s) None Disposition PCU ACC Data Cardiac Status Clinical evaluation leading to the procedure CAD Presntation: Unstable angina Anginal Classification: CCS III Heart Failure: NYHA Class: CCS II Cardiogenic Shock w/in 24Hrs: No Cardiac Arrest w/in 24Hrs: No Imaging studies past 6 months: Yes Standard Exercise Stress Test: No Stress Echocardiogram: No Stress Testing w/SPECT MPI: No Coronary Anatomy Dominant: Co-dominant Left Main (% Stenosis): Normal LAD (% Stenosis): Proximal (80-90), Mid (95) OM1 (% Stenosis): Proximal (50-60) RCA (% Stenosis): Proximal (20-30) Grafts - LAD (%): Normal Grafts - Circumflex (%): Normal Diagnostic Physician's Name: Kyle Zhu MD Status: Elective Closure Device Percutaneous Entry Location: Femoral Closure Device: Mynx Recommendations: Medical therapy and/or Counseling Intraprocedure Events Significant Dissection: No Perforation: No
[2016-09-16] MEDS ORDERED: ACETAMINOPHEN 325 MG TAB PO PRN (13:30)
[2016-09-16] MEDS: GABAPENTIN 300 MG CAP PO SCH (19:47)
[2016-09-16] MEDS: PRAVASTATIN SOD 40 MG TAB PO SCH (19:47)
[2016-09-16] MEDS: BUMETANIDE 1 MG TAB PO SCH (19:48)
[2016-09-17 03:34] VITALS: BP 127/82; PULSE 65; TEMP 36.8; O2SAT 95
[2016-09-17] MEDS: HEPARIN SOD 5000 UNIT/0.5 ML CARP SQ SCH (06:00)
[2016-09-17] MEDS: NITROGLYCERIN OINT 2% 1GM PACKET EXT SCH ×3 (06:00→11:59)
[2016-09-17] MEDS: ASPIRIN 325 MG ECTAB PO SCH (07:31)
[2016-09-17] MEDS: SACUBITRIL-VALSARTAN 49-51 MG TAB PO SCH (07:32)
[2016-09-17] MEDS: CLOPIDOGREL BISULFATE 75 MG TAB PO SCH (07:32)
[2016-09-17] MEDS: CARVEDILOL 6.25 MG TAB PO SCH (07:32)
--- NOTE | 2016-09-17 07:35 | Progress Note ---
Subjective Date of Service: late entry for visit Sep 16, 2016. Subjective Pt evaluation today including: conversation w/ patient, physical exam, chart review, lab review, review of studies (cardiac cath), conversation w/ risk control consultant (cardiology ) Pain: no chest pain since admission (or tightness) PO Intake: normal Voiding: no voiding problems tele with PVCs, couplets, triplets - no sustained dysrhythmia he denies any SOB, REYES, chest pain or tightness "I feel fine" but he states "I haven't walked and that's when I get the tightness" [in his chest] Problem List Medical Problems: (1) Elevated troponin Status: Acute (2) Elevated troponin Status: Acute (3) Elevated troponin I level Status: Acute (4) Exertional chest pain Status: Acute (5) NSTEMI (non-ST elevated myocardial infarction) Status: Acute (6) Pulmonary edema Status: Acute (7) Pulmonary edema Status: Acute (8) SOB (shortness of breath) Status: Acute Review of Systems Constitutional: No fever Respiratory: No cough, No dyspnea at rest Cardiac: No chest pain, No orthopnea, No PND, No edema Abdomen: No pain Objective Vital Signs Date Time Temp Pulse Resp B/P (MAP) Pulse Ox O2 Delivery O2 Flow Rate FiO2 09/17/16 04:00 Room Air 09/17/16 03:34 36.8 65 18 127/82 (97) 95 Room Air 09/17/16 00:00 Room Air 09/16/16 23:16 37.3 70 16 124/78 (93) 92 Room Air 09/16/16 20:00 Room Air 09/16/16 18:56 36.8 61 20 122/76 (91) 92 Room Air 09/16/16 17:55 64 18 119/73 (88) 93 Room Air 09/16/16 16:57 60 18 124/79 (94) 97 Room Air 09/16/16 16:00 Room Air 09/16/16 15:57 36.6 51 20 115/74 (88) 97 Room Air 09/16/16 15:05 36.4 58 18 121/76 (91) 95 Room Air 09/16/16 14:55 36.4 48 18 121/76 (91) 95 Room Air 09/16/16 14:25 58 18 109/71 (84) 94 Room Air 09/16/16 13:55 36.3 57 18 110/70 (83) 91 Room Air 09/16/16 13:40 51 18 117/74 (88) 97 Room Air 09/16/16 13:25 55 18 116/66 (83) 96 Room Air 09/16/16 13:10 Room Air 09/16/16 13:10 36.7 53 18 109/74 (86) 96 Room Air 09/16/16 13:02 62 16 126/74 (91) 96 Room Air 09/16/16 12:52 60 16 120/76 (91) 96 Room Air 09/16/16 12:47 60 16 118/73 (88) 98 Mask 2 09/16/16 11:00 36.8 64 18 126/78 (94) 93 Room Air 09/16/16 10:20 36.9 62 18 119/77 93 Room Air 09/16/16 08:00 Room Air 09/16/16 07:15 36.9 62 18 119/77 (91) 93 Room Air Physical Exam General Appearance: no apparent distress ENT: pharynx normal Neck: + JVD (minimal) Respiratory/Chest: lungs clear, no respiratory distress, no accessory muscle use Cardiovascular: regular rate, rhythm, no gallop, no murmur Abdomen: normal bowel sounds, non tender, soft, no organomegaly Extremities: no pedal edema Skin: + pertinent finding (right groin site (from cath) clean and w/o hematoma) Laboratory Results Last 24 Hours Test 09/16/16 13:21 09/16/16 16:52 09/16/16 19:34 09/17/16 06:29 Bedside Glucose 140 mg/dl 122 mg/dl 221 mg/dl Transferrin % Saturation % Test 09/17/16 06:48 Assessment and Plan 61yo male: 1. chest tightness, dyspnea - heart cath today with patent grafts. Thus, CAD does not appear to be from CAD. Does not have any decompensated CHF at this time. Lungs are clear - doubt primary lung disease but not 100% ruled out. No evidence of infectious process. VQ scan on 09/09 with low prob for PE. [id number], given his recent travels and potential for false negatives on VQ , will obtain CTA chest in AM to r/o PE if creatinine is stable. 2. chronic systolic CHF - compensated at this time. May have had mild amount of acute CHF at ER presentation and did in fact receive IV bumex but again appears compensated once again today. Cont BB, bumex, entresto. 3. acute kidney injury - 2nd to acute CHF? resolved. baseline Cr is 1.4-1.8 range. BMP am. 4. +troponin - chronically elevated. Could be due to #3, CHF, etc. Doubt true ACS. 5. HTN - controlled. 6. T2DM - reasonable control. 7. CAD - see #1 above. cont asa, plavix, BB, statin, ARB. 8. DVT proph - heparin TID. CTA chest in am will dictate plan of care Continued [facility] stay due to: multiple IV medications needed, other (need for heart cath) Discharge planning: home
[2016-09-17] MEDS: INSULIN ASPART 100 UNITS/ML 3 ML PEN SC SCH ×2 (07:43→11:29)
[2016-09-17 07:55] VITALS: BP 123/82; PULSE 66; TEMP 36.8; O2SAT 93
[2016-09-17 08:09] LABS: BUN/CREATININE RATIO 23.3 (10-20); CALCIUM 8.8 mg/dl (8.5-10.1); CREATININE 1.3 mg/dl (0.60-1.40); POTASSIUM 4.5 mmol/L (3.5-5.1)
[2016-09-17 08:15] LABS: FERRITIN 72.4 ng/ml (8.0-388.0)
[2016-09-17] MEDS ORDERED: OPTIRAY 320 IV PRN (08:45)
[2016-09-17] MEDS ORDERED: CYANOCOBALAMIN 500 MCG TAB (VIT B-12) PO SCH (09:15)
--- NOTE | 2016-09-17 09:53 | DIAGNOSTIC IMAGING REPORT ---
CT ANGIOGRAM OF THE CHEST CLINICAL HISTORY: Atypical chest pain, shortness of breath, recent travel history. COMPARISON STUDY: Chest x-ray dated 09/14/2016 TECHNIQUE: Following the IV administration of 87 mL of Optiray-320, CT angiogram of the thorax was performed from the thoracic inlet to the lung bases utilizing the pulmonary embolus protocol. Images are reviewed in the axial, sagittal, and coronal planes. IV contrast was administered without complication. MIP imaging was performed. A dose lowering technique was utilized adhering to the principles of ALARA. CT DOSE: 464.91 mGy.cm FINDINGS: There are multiple mediastinal lymph nodes at the upper limits of normal in size. There is a mildly enlarged subcarinal lymph node. There are borderline enlarged hilar lymph nodes. There is no pathologic axillary lymphadenopathy. There is mild ectasia of the ascending thoracic aorta which measures 38 mm. There are coronary artery calcifications present. The heart is enlarged. There were no pulmonary artery filling defects to indicate acute pulmonary embolism. There are small bilateral pleural effusions. There are bilateral lower lobe airspace opacities. There are left lower lobe air bronchograms. This could be inflammatory/infectious or atelectatic. IMPRESSION: 1. No evidence of acute pulmonary embolism 2. Mild ectasia of the ascending thoracic aorta 3. Small bilateral pleural effusions and bibasal airspace opacities left greater than right 4. Mildly prominent mediastinal and hilar lymph nodes Electronically signed by: Nikita Brian M.D. 09/17/2016 9:52 AM Dictated Date/Time: 09/17/2016 9:47 AM
[2016-09-17] MEDS ORDERED: ALBUTEROL HFA 8 GM INHALER INH ONE (10:30)
[2016-09-17] MEDS ORDERED: NTRSLP4 SL (11:16)
[2016-09-17] MEDS ORDERED: CLOP1TAB15 PO (11:16)
[2016-09-17] MEDS ORDERED: PRVHFAIN PO (11:16)
[2016-09-17] MEDS ORDERED: VTMB12 PO (11:16)
[2016-09-17] MEDS ORDERED: DXY100 PO (11:16)
--- NOTE | 2016-09-17 11:26 | Discharge Instructions ---
Discharge Instructions Date of Service Sep 17, 2016. Admission Reason for Admission: Chest tightness, shortness of breath Discharge Discharge Diagnosis / Problem: 1. heart cath with patent grafts/arteries 2. abnormal CAT scan - lungs Discharge Goals Goal(s): Learn about illness, Diagnostic testing, Therapeutic intervention Activity Recommendations Activity Limitations: as noted below Following your femoral cardiac cath: * Do not strain during bowel movements for the first 3 to 4 days after the procedure to prevent bleeding from the catheter insertion site. * Avoid heavy lifting (more than 10 pounds) and pushing or pulling heavy objects for the first 5 to 7 days after the procedure. * Do not participate in strenuous activities for 5 days after the procedure. This includes most sports - jogging, golfing, play tennis, and bowling. * You may climb stairs if needed, but walk up and down the stairs more slowly than usual. * Gradually increase your activities until you reach your normal activity level within one week after the procedure. * Keep the dressing on until Monday morning. You can remove at that time. * Ok to shower starting today but keep the dressing covered and dry. * Do not swim or take a tub bath for the next 5 days. Instructions / Follow-Up Instructions / Follow-Up From Dr. Glover - 1. For possible infection of the lungs - * take doxycycline 100mg twice daily for 10 days * again this antibiotic can cause a rash with sun exposure * be sure to cover up in the sun and use sunscreen * it can also cause mild reflux/heartburn symptoms * may take albuterol 2 puffs every 6 hours as needed for cough, wheeze, shortness of breath, chest tightness * please ask for a pulmonary referral from your family doctor to evaluate your CAT scan of the lungs and do more testing 2. STOP your metformin at this time. You will need a repeat blood sample to check your kidney function before resuming it (because of the contrast from your heart cath and the contrast from your CAT scan). Please have your family doctor check a "BMP" (basic metabolic panel) THIS MONDAY. Watch your blood sugars and diet carefully off of the metformin. 3. Continue all of your previous heart medications as directed by Dr. Arshad. 4. Start an oral b12 supplement 1000mcg daily. You can purchase this over-the- counter. 5. Return to [facility] if - * you experience worsening chest pain, chest tightness or shortness of breath not responding to your nitroglycerin or the albuterol inhaler * you have any concerns regarding the femoral cath site (infection, drainage, etc) 6. Follow-up - * see your family doctor - Dr. Wilson - within 3-4 days; again you need the blood work on MONDAY of this week * see Dr. Arshad within 1-2 weeks Current Hospital Diet Patient's current hospital diet: AHA Diet (Heart Healthy), Diabetes Type 2 Diet Discharge Diet Recommended Diet: AHA Diet (Heart Healthy), Diabetes Type 2 Diet Procedures Procedures Performed: 1. heart catheterization showing patent grafts from your prior open heart surgery (no change from cath from 01/2016). 2. CAT scan of the lungs showing mild lymphadenopathy (swollen glands) and "infiltrates" in the bottom portions of the lungs. There was also bronchial irritation. This could be from a virus or bacterium. Follow-up will be needed. Pending Studies Studies pending at discharge: no Laboratory Results Hemoglobin A1c Test 09/10/16 03:37 Range/Units Estimated Average Glucose 143 mg/dl Hemoglobin A1c 6.6 H 4.5-5.6 % Lipid Panel Test 09/10/16 03:37 Range/Units Triglycerides Level 82 0-150 mg/dl Cholesterol Level 107 0-200 mg/dl HDL Cholesterol 45 mg/dl Cholesterol/HDL Ratio 2.4 LDL Cholesterol, Calculated 46 mg/dl Medical Emergencies . Who to Call and When: Medical Emergencies: If at any time you feel your situation is an emergency, please call 911 immediately. . Non-Emergent Contact Non-Emergency issues call your: Primary Care Provider Call Non-Emergent contact if: temperature is above 100.5, your pain is not controlled, your pain is worsening, your pain is unusual for you, your pain is concerning you, you have any medication questions . . "Provider Documentation" section prepared by Keyur Glover. . VTE Core Measure Inpt VTE Proph given/why not?: Unfractionated heparin SQ
[2016-09-17 11:32] VITALS: BP 123/76; PULSE 70; TEMP 36.9; O2SAT 90
[2016-09-17 11:41] VITALS: BP 123/76; PULSE 70; TEMP 36.9; O2SAT 90
[2016-09-19] MEDS ORDERED: SULF800T23 PO (08:30)
[2016-09-19] MEDS ORDERED: DOXY100C76 PO (08:34)
--- NOTE | 2016-09-21 23:21 | Discharge Summary ---
Discharge Summary Date of Service Sep 21, 2016. Discharge Summary Admission Date: Sep 14, 2016 at 20:35 Discharge Date: Sep 17, 2016 Discharge Disposition: Home Principal Diagnosis: chest pain & sob - unclear if due to cardiac or pulmonary etiology Problems/Secondary Diagnoses: 1. CAD s/p heart cath with stable findings 2. chronic cough, possibly due to intrinsic lung disease - outpatient work-up needed 3. chronically elevated troponin 4. acute/chronic systolic/diastolic CHF 5. vitamin B12 deficiency 6. anemia 7. acute kidney injury in the setting of CKD stage 2 8. hyperlipidemia 9. T2DM 10. chronic right foot ulcer (big toe) 11. HTN Procedures: 1. CTA chest: IMPRESSION: 1. No evidence of acute pulmonary embolism 2. Mild ectasia of the ascending thoracic aorta 3. Small bilateral pleural effusions and bibasilar airspace opacities left greater than right 4. Mildly prominent mediastinal and hilar lymph nodes 2. cardiac catheterization: Kyle Zhu MD Findings: LM - Angiographically normal LAD - Moderate caliber vessel, 80-90% proximal stenosis; diffuse 95% mid segment disease with competitive flow from [place]. Distal LAD after anastomosis wraps around apex with minimal disease. Small 1st diagonal with mild diffuse disease. Circumflex - Co-dominant, moderate caliber vessel with minimal disease proximally. OM1 with 50-60% proximal stenosis and competitive flow. OM2 small vessel with 40% proximal stenosis. RCA - Co-dominant, large caliber vessel with 20-30% proximal stenosis; mild mid segment disease, luminal irregularities in distal vessel and PDA. SVG-OM1 - widely patent MAL[place]-LAD - widely patent and retrofills small 2nd diagonal Summary: 1. Single vessel severe coronary artery disease - 80% proximal LAD before take-off of small 1st diagonal; 95% mid LAD stenosis (Not significantly changed from cath report from [facility] 01/2016) 2. Widely patent MALDONADO-LAD, SVG-OM 3. Mildly elevated LVEDP. Borderline pulmonary hypertension. 4. Preserved cardiac output. Consultations: cardiology - Bhanu Arshad DO / Kyle Zhu MD Medication Reconciliation New Medications: Albuterol (Ventolin Hfa) 60 Puffs/5400 Mcg Aers 2 PUFFS PO Q6H PRN for cough, sob, wheeze, #1 INHALER 1 Refill Cyanocobalamin (Vitamin B-12) 500 Mcg Tab 1000 MCG PO QAM, #30 TAB 11 Refills can buy [id number] Nitroglycerin (Nitrostat) 0.4 Mg/1 Tab Subl 0.4 MG SL q5min PRN for Chest Pain, #1 BTL 0 Refills max 3 tabs in 15 minutes Changed Medications: Clopidogrel (Plavix) 75 Mg Tab 75 MG PO QAM, #30 TAB 11 Refills (Changed from: Refills: ; Removed Instructions) Continued Medications: Aspirin (Aspirin Ec) 325 Mg Tab 325 MG PO QAM Bumetanide (Bumex) 2 Mg Tab 2 MG PO QPM, #15 Carvedilol (Coreg) 6.25 Mg Tab 6.25 MG PO BID, TAB Cyanocobalamin (Cyanocobalamin) 1,000 Mcg/Ml Inj 1 ML IM MONTHLY HASN'T HAD FOR 2 MONTHS, SAYS "HE FORGETS" TO GET THEM. Gabapentin (Neurontin) 300 Mg Cap 600 MG PO QPM, CAP Pravastatin Sodium (Pravastatin Sodium) 80 Mg Tab 1 TAB PO HS, TAB 3 Refills Sacubitril-Valsartan (Entresto 97-103 mg) 1 Tab Tab 1 TAB PO BID Discontinued Medications: Metformin Hcl (Glucophage) 1,000 Mg Tab 1000 MG PO BID, TAB Discharge Exam Physical Exam: General Appearance: no apparent distress ENT: pharynx normal Neck: no JVD Respiratory/Chest: lungs clear, no respiratory distress, no accessory muscle use Cardiovascular: regular rate, rhythm, no gallop, no murmur, normal peripheral pulses Abdomen / GI: normal bowel sounds, non tender, soft, no organomegaly Extremities: no pedal edema Neurologic/Psychiatric: alert, oriented x 3 Skin: + pertinent finding (no right groin hematoma or erythema; right great toe - tiny ulcer present, no drainage, no erythema ) Hospital Course HISTORY OF PRESENT ILLNESS: Mr. Davila is a 61yo male with history of CAD, Chronic systolic/diastolic CHF, T2DM, CKD stage 2-3, pacemaker status, mutliple cardiac caths, and chronic right foot ulcer. Pt was recently hospitalized for chest pain and SOB. He was scheduled for a cath on a Monday to be completed on Monday and signed himself out AMA as he did not wish to pay for an overnight stay in the hospital. For the past several days, he states he is unable to tolerate minimal activity without experiencing central chest pressure and SOB. He presents again to the hospital stating that he needs a catheterization. Initial labs show an elevated troponin which is however at baseline, anemia and CKD which are also approximately at baseline. A CXR reveals increasing vascular congestion. HOSPITAL COURSE: The patient's chest tightness and dyspnea may have been due to mildly decompensated chronic systolic/diastolic CHF. He received IV diuretics at time of ER presentation. However, by the next morning, he had no clinical signs of decompensated CHF. He was seen in consult by his primary community support associate, Dr. Bhanu Arshad, who recommended left heart catheterization in light of his known, severe CAD. Heart cath was completed by Dr. Kyle Zhu and this confirmed PATENT grafts; thus, his current symptomatology was UNLIKELY due to his underlying CAD. The patient also reported a chronic cough and also multiple long trips via airplane in the weeks leading up to this hospitalization. Thus, he underwent CTA chest that was NEGATIVE for PE. CTA chest, however, demonstrated small bibasilar infiltrates and mild lymphadenopathy. Perhaps his presenting chest tightness and dyspnea was due to infection. As a result he was given oral antibiotics and an inhaler to use for symptoms. It was recommended that he ask his PCP and/or community support associate for a pulmonary referral to see if his symptoms were due to primary lung disease. Other issues addressed: 1. acute kidney injury - creatinine was 1.8 at ER presentation, improving to 1.3 at discharge. 2. +troponin - again this is chronically elevated. It is possible that the troponin is due to CKD, CHF, etc. 3. anemia - vitamin B12 level again demonstrated low-normal levels. He was advised to continue his B12 injections or simply take oral B12 daily. PCP follow-up was advised. 4. T2DM - due to recent contrast usage he was instructed to HOLD his metformin at discharge. A repeat BMP will be needed to ensure stability of his creatinine prior to resuming the metformin. Total Time Spent: Greater than 30 minutes This includes examination of the patient, discharge planning, medication reconciliation, and communication with other providers. Discharge Instructions Please refer to the electronic Patient Visit Report (Discharge Instructions) for additional information. Follow-Up 1. see Dr. Wilson within [address] Arshad within 1-2 weeks Additional Copies To Bhanu Arshad, DO; Neha Wilson M.D.
[2016-10-14] MEDS ORDERED: SULF800T23 PO (13:01)
[2016-10-24] MEDS ORDERED: SULF800T23 PO (14:27)
== END 2016-09-17 12:30 | disposition home or self-care (01) | DRG 286 ==
LOC: C.EDB 19:13 → C.2T 20:35 → ENRESERV 21:59
PROVIDERS: ADMIT Internal Medicine; ATTEND Internal Medicine
PROC: B201YZZ Plain Radiography of Multiple Coronary Arteries using Other Contrast (ICD-10-PCS; principal; 2016-09-16 10:20)
PROC: B202YZZ Plain Radiography of Single Coronary Artery Bypass Graft using Other Contrast (ICD-10-PCS; principal; 2016-09-16 10:20)
PROC: 4A023N8 Measurement of Cardiac Sampling and Pressure, Bilateral, Percutaneous Approach (ICD-10-PCS; principal; 2016-09-16 10:20)
DX: I25.110 Atherosclerotic heart disease of native coronary artery with unstable angina pectoris (principal); I50.23 Acute on chronic systolic (congestive) heart failure; I13.0 Hypertensive heart and chronic kidney disease with heart failure and stage 1 through stage 4 chronic kidney disease, or unspecified chronic kidney disease; N17.9 Acute kidney failure, unspecified; E11.22 Type 2 diabetes mellitus with diabetic chronic kidney disease; N18.3 Chronic kidney disease, stage 3 (moderate); L97.519 Non-pressure chronic ulcer of other part of right foot with unspecified severity; E11.621 Type 2 diabetes mellitus with foot ulcer; D64.9 Anemia, unspecified; I45.10 Unspecified right bundle-branch block; I25.5 Ischemic cardiomyopathy; Z79.82 Long term (current) use of aspirin; Z79.84 Long term (current) use of oral hypoglycemic drugs; Z79.899 Other long term (current) drug therapy; Z95.0 Presence of cardiac pacemaker; Z95.1 Presence of aortocoronary bypass graft

== ENCOUNTER 2016-10-27 18:56 | Observation (INO) | payer OTHER ==
[~2016-10-27] VITALS: Ht 182.9 cm; Wt 100.9 kg
[~2016-10-27 18:56] MED LIST changes: +CLOP1TAB15 PO; -METF-384 PO; +NTRSLP4 SL; -PLV75 PO; +PRVHFAIN PO; +SULF800T23 PO; +VTMB12 PO
--- NOTE | 2016-10-27 19:40 | DIAGNOSTIC IMAGING REPORT ---
CHEST ONE VIEW PORTABLE CLINICAL HISTORY: Is a breath. Respiratory distress. Excessive weight gain. COMPARISON STUDY: 09/14/2016 FINDINGS: The heart remains enlarged. There is a left subclavian pacer/defibrillator present. There are postsurgical changes of midline sternotomy. There is radiographic evidence of mild central pulmonary vascular congestion. There are small bilateral pleural effusions. There is no focal pulmonary consolidation.[ IMPRESSION: Cardiomegaly and mild central pulmonary vascular congestion. Small bilateral pleural effusions. No significant change from the preceding study. Electronically signed by: Nikita Brian M.D. 10/27/2016 7:39 PM Dictated Date/Time: 10/27/2016 7:37 PM
[2016-10-27 19:55] LABS: BASO % 0.4 %; BASO ABS # 0.02 K/uL (0-0.2); COMPLETE YES; EOS % 4.2 %; HEMATOCRIT 31.4 % (42-52); IG% 0.2 %; LYMPH % 18.7 %; LYMPH ABS # 0.89 K/uL (1.2-3.4); MEAN CELL VOLUME 89.2 fL (80-100); MEAN CORPUSCULAR HEMOGLOBIN 28.1 pg (25-34); MEAN CORPUSCULAR HGB CONC 31.5 g/dl (32-36); MEAN PLATELET VOLUME 9.1 fL (7.4-10.4); MONO % 5.3 %; NEUT % 71.2 %; PLATELET COUNT 272 K/uL (130-400); RED BLOOD COUNT 3.52 M/uL (4.7-6.1); WHITE BLOOD COUNT 4.75 K/uL (4.8-10.8)
[2016-10-27 20:18] LABS: CALCIUM 8.4 mg/dl (8.5-10.1); CREATININE 2.3 mg/dl (0.60-1.40); POTASSIUM 5.1 mmol/L (3.5-5.1)
[2016-10-27 20:28] LABS: ALB/GLOB RATIO 0.7 (0.9-2); CKMB/CK RATIO 2.1 (0-3.0)
[2016-10-27] MEDS ORDERED: FUROSEMIDE 40 MG/4 ML VIAL IV STA (20:36)
[2016-10-27] MEDS ORDERED: NITROGLYCERIN OINT 2% 1GM PACKET EXT ONE (20:45)
[2016-10-27] MEDS ORDERED: ONDANSETRON INJ 2 MG/ML 2 ML VIAL IV PRN (22:15)
[2016-10-27] MEDS ORDERED: ALBUTEROL HFA 8 GM INHALER INH PRN (22:15)
[2016-10-27] MEDS ORDERED: ACETAMINOPHEN 325 MG TAB PO PRN (22:15)
[2016-10-27] MEDS ORDERED: IV FLUIDS COMPLETED PRN (22:45)
--- NOTE | 2016-10-27 22:57 | EMERGENCY ROOM VISIT NOTE ---
History Report prepared by Salena: Aneudy Lundberg Under the Supervision of: Dr. Adams Dolan M.D. First contact with patient: 19:11 Chief Complaint: SWELLING TO EXTREMITY Stated Complaint: EXCESSIVE WT GAIN, SOB History of Present Illness The patient is a 61 year old male who presents to the Emergency Room with complaints of constant weight gain beginning three weeks ago. The patient states that over the last three weeks, he thought he gained 12-15 pounds, but he weighed himself this morning and gained almost 20 pounds. He reports that this morning he weighed 232 pounds. The patient notes that after eating a diet of strictly fruit and driving two hours home, he gained 4 pounds. He reports that when he arrived home, he had to use a knife to get his shoe of because of edema to his feet. He states that he has been experiencing shortness of breath as well the past couple of days. The patient reports that he has a history of CHF and a recent heart catheterization. He notes that his catheterization was negative. The patient states that he had an infection in his toes a few months ago, and he went to the doctors. He reports that he was told to go the ED because he had heavy heart blockages and needed emergency surgery. The patient notes that he travels for his job frequently that causes him to eat out at restaurants. He states that he just had blood work performed, and his kidney function went from 1.3 to 2.8. He notes that he received a call to come to the ED. The patient reports that he is on Nitroglycerin, Carvedilol, Aspirin, Bumex , and Entresto. He notes that he has a history of diabetes mellitus. Pt denies LOC, headache, fevers, chills, diaphoresis, visual changes, neck pain, chest pain, nausea, vomiting, abdominal pain, back pain, melena, hematochezia, urinary symptoms, numbness, weakness, lymphadenopathy, rash, changes in medication, missing medication doses, or other complaints. Source of History: patient Onset: three weeks ago Position: other (global) Quality: other (weight gain) Timing: constant Associated Symptoms: + SOB Note: Associated symptoms: edema to his feet Review of Systems See HPI for pertinent positives and negatives. A total of ten systems were reviewed and were otherwise negative. Past Medical & Surgical Medical Problems: (1) Acute exacerbation of CHF (congestive heart failure) (2) Acute kidney failure (3) CHF (congestive heart failure) (4) Coronary artery disease (5) H/O cardiac pacemaker (6) Hypertension (7) Hypoxia (8) Ischemic cardiomyopathy (9) NSTEMI (non-ST elevated myocardial infarction) Surgical Problems: (1) H/O cardiac catheterization (2) S/P CABG (coronary artery bypass graft) (3) S/P cholecystectomy (4) Stented coronary artery Family History No pertinent family history Social History Smoking Status: Never Smoker Drug Use: none Marital Status: Housing Status: lives alone Occupation Status: employed Current/Historical Medications Scheduled Aspirin (Aspirin Ec), 325 MG PO QAM Bumetanide (Bumex), 2 MG PO QPM Carvedilol (Coreg), 6.25 MG PO BID Clopidogrel (Plavix), 75 MG PO QAM Cyanocobalamin (Cyanocobalamin), 1 ML IM MONTHLY Cyanocobalamin (Vitamin B-12), 1,000 MCG PO QAM Gabapentin (Neurontin), 600 MG PO QPM Pravastatin Sodium (Pravastatin Sodium), 1 TAB PO HS Sacubitril-Valsartan (Entresto 97-103 mg), 1 TAB PO BID Sulfa/Trimethoprim (Bactrim Ds 800MG/160MG), 1 TAB PO BID Scheduled PRN Albuterol (Ventolin Hfa), 2 PUFFS PO Q6H PRN for cough, sob, wheeze Nitroglycerin (Nitrostat), 0.4 MG SL q5min PRN for Chest Pain Allergies Coded Allergies: No Known Allergies (Unverified , 10/27/16) Physical Exam Vital Signs Date Time Temp Pulse Resp B/P (MAP) Pulse Ox O2 Delivery O2 Flow Rate FiO2 10/27/16 22:34 37.2 71 20 177/107 95 10/27/16 22:25 71 20 177/107 95 10/27/16 22:21 73 93 10/27/16 22:16 75 90 10/27/16 22:11 73 90 10/27/16 22:06 74 90 10/27/16 22:01 73 93 10/27/16 21:56 73 92 10/27/16 21:51 73 94 10/27/16 21:46 76 91 10/27/16 21:41 71 93 10/27/16 21:36 78 91 10/27/16 21:26 73 91 10/27/16 21:21 76 91 10/27/16 21:16 72 92 10/27/16 21:11 73 91 10/27/16 21:06 75 87 10/27/16 21:01 73 93 10/27/16 20:56 73 91 10/27/16 20:51 72 94 10/27/16 20:46 75 90 10/27/16 20:41 77 93 10/27/16 20:36 74 90 10/27/16 20:31 73 91 10/27/16 20:26 75 89 10/27/16 20:21 71 95 10/27/16 20:16 72 92 10/27/16 20:11 76 90 10/27/16 20:06 76 15 93 10/27/16 20:01 75 18 93 10/27/16 19:56 77 15 91 10/27/16 19:51 71 10 95 10/27/16 19:46 74 15 92 10/27/16 19:41 73 92 10/27/16 19:36 72 94 10/27/16 19:34 96 Room Air 10/27/16 19:34 96 Room Air 10/27/16 19:31 73 93 10/27/16 19:26 73 96 10/27/16 19:26 73 10/27/16 19:21 72 91 10/27/16 19:16 73 93 10/27/16 19:00 37.2 73 18 118/78 93 Room Air Physical Exam GENERAL: Awake, alert, well-appearing, in no distress HENT: Normocephalic, atraumatic. Oropharynx unremarkable. EYES: Normal conjunctiva. Sclera non-icteric. NECK: Supple. No nuchal rigidity. FROM. No JVD. RESPIRATORY: Clear to auscultation. CARDIAC: Regular rate, normal rhythm. Extremities warm and well perfused. Pulses equal. Defibrillator in the left upper chest. ABDOMEN: Soft, non-distended. No tenderness to palpation. No rebound or guarding. No masses. RECTAL: Deferred. MUSCULOSKELETAL: Chest examination reveals no tenderness. The back is symmetrical on inspection without obvious abnormality. There is no CVA tenderness to palpation. No joint edema. LOWER EXTREMITIES: Calves are equal size bilaterally and non-tender. Trace bilateral edema. No discoloration. NEURO: Normal sensorium. No sensory or motor deficits noted. SKIN: No rash or jaundice noted. Medical Decision & Procedures ER Provider Diagnostic Interpretation: X-ray: Per my interpretation, radiologist review. CHEST ONE VIEW PORTABLE CLINICAL HISTORY: Is a breath. Respiratory distress. Excessive weight gain. COMPARISON STUDY: 09/14/2016 FINDINGS: The heart remains enlarged. There is a left subclavian pacer/defibrillator present. There are postsurgical changes of midline sternotomy. There is radiographic evidence of mild central pulmonary vascular congestion. There are small bilateral pleural effusions. There is no focal pulmonary consolidation. IMPRESSION: Cardiomegaly and mild central pulmonary vascular congestion. Small bilateral pleural effusions. No significant change from the preceding study. Electronically signed by: Nikita Brian M.D. 10/27/2016 7:39 PM Dictated Date/Time: 10/27/2016 7:37 PM Laboratory Results 10/27/16 19:34 Red Blood Count 3.52, Mean Corpuscular Volume 89.2, Mean Corpuscular Hemoglobin 28.1, Mean Corpuscular Hemoglobin Concent 31.5, Mean Platelet Volume 9.1, Neutrophils (%) (Auto) 71.2, Lymphocytes (%) (Auto) 18.7, Monocytes (%) (Auto) 5.3, Eosinophils (%) (Auto) 4.2, Basophils (%) (Auto) 0.4, Neutrophils # (Auto) 3.38, Lymphocytes # (Auto) 0.89, Monocytes # (Auto) 0.25, Eosinophils # (Auto) 0.20, Basophils # (Auto) 0.02 10/27/16 19:34 Test 10/27/16 19:34 White Blood Count 4.75 K/uL (4.8-10.8) Red Blood Count 3.52 M/uL (4.7-6.1) Hemoglobin 9.9 g/dL (14.0-18.0) Hematocrit 31.4 % (42-52) Mean Corpuscular Volume 89.2 fL (80-100) Mean Corpuscular Hemoglobin 28.1 pg (25-34) Mean Corpuscular Hemoglobin Concent 31.5 g/dl (32-36) Platelet Count 272 K/uL (130-400) Mean Platelet Volume 9.1 fL (7.4-10.4) Neutrophils (%) (Auto) 71.2 % Lymphocytes (%) (Auto) 18.7 % Monocytes (%) (Auto) 5.3 % Eosinophils (%) (Auto) 4.2 % Basophils (%) (Auto) 0.4 % Neutrophils # (Auto) 3.38 K/uL (1.4-6.5) Lymphocytes # (Auto) 0.89 K/uL (1.2-3.4) Monocytes # (Auto) 0.25 K/uL (0.11-0.59) Eosinophils # (Auto) 0.20 K/uL (0-0.5) Basophils # (Auto) 0.02 K/uL (0-0.2) RDW Standard Deviation 51.2 fL (36.4-46.3) RDW Coefficient of Variation 15.9 % (11.5-14.5) Immature Granulocyte % (Auto) 0.2 % Immature Granulocyte # (Auto) 0.01 K/uL (0.00-0.02) Anion Gap 4.0 mmol/L (3-11) Est Creatinine Clear Calc Drug Dose 43.4 ml/min Estimated GFR () 34.5 Estimated GFR (Non- 29.8 BUN/Creatinine Ratio 25.0 (10-20) Calcium Level 8.4 mg/dl (8.5-10.1) Total Bilirubin 0.7 mg/dl (0.2-1) Aspartate Amino Transf (AST/SGOT) 9 U/L (15-37) Alanine Aminotransferase (ALT/SGPT) 11 U/L (12-78) Alkaline Phosphatase 133 U/L (45-117) Total Creatine Kinase 63 U/L (39-308) Creatine Kinase MB 1.3 ng/ml (0.5-3.6) Creatine Kinase MB Ratio 2.1 (0-3.0) Troponin I 0.795 ng/ml (0-0.045) Pro-B-Type Natriuretic Peptide 8383 pg/ml (0-900) Total Protein 8.2 gm/dl (6.4-8.2) Albumin 3.5 gm/dl (3.4-5.0) Globulin 4.7 gm/dl (2.5-4.0) Albumin/Globulin Ratio 0.7 (0.9-2) Laboratory results reviewed by me Medications Administered Medications (Trade) Dose Ordered Sig/Nika Route Start Time Stop Time Status Last Admin Dose Admin Nitroglycerin (Nitroglycerin 2% Oint) 0.5 inch NOW ONCE EXT 10/27/16 20:45 10/27/16 20:46 DC 10/27/16 21:17 0.5 INCH Furosemide (Lasix Inj) 20 mg NOW STAT IV 10/27/16 20:36 10/27/16 20:39 DC 10/27/16 21:17 20 MG ECG Indication: SOB/dyspnea Rate (beats per minute): 72 Rhythm: sinus rhythm Findings: 1st degree AV block, Q waves (interseptal), RBBB (incomplete), no acute ischemic change, no ectopy ED Course 1932: The patient was evaluated in room C01B. A complete history and physical exam was performed. 2035: Ordered Furosemide 20mg IV 2037: Upon reexamination, the patient was resting comfortably. I discussed the test results and treatment plan with him. The patient will be evaluated for further management. 2044: Ordered Nitroglycerin 0.5 in EXT 2110: I discussed the patient's case with Dr. Woo [facility] Hospitalist. The patient will be evaluated for further treatment. Medical Decision Triage Nursing notes reviewed. The patient's presentation and history were concerning for shortness of breath and elevated creatinine. Etiologies such as acute kidney injury, CHF, pneumonia, COPD, reactive airway disease, cardiac ischemia, pulmonary embolism, pneumothorax, musculoskeletal, infections, gastrointestinal, as well as others were entertained. The patient was evaluated. Clinically he was doing well. ECG did not show any acute ischemic change. Chest x-ray showed signs of CHF. The patient had blood work obtained. His BNP is markedly elevated and his creatinine is elevated over baseline. His troponin is mildly elevated as well. CBC was unremarkable. The patient was given Nitropaste and IV Lasix. Consultation was made with internal medicine. Internal medicine consulted with cardiology and inpatient management was recommended. Consults Time Called: 2039 Consulting Physician: Dr. Woo [facility] Hospitalist Returned Call: [phone] I discussed the patient's case with Dr. Woo [facility] Hospitalist. The patient will be evaluated for further treatment. Impression Primary Impression: CHF (congestive heart failure) Additional Impressions: Acute kidney injury Elevated troponin I level Scribe Attestation The scribe's documentation has been prepared under my direction and personally reviewed by me in its entirety. I confirm that the note above accurately reflects all work, treatment, procedures, and medical decision making performed by me. Departure Information Dispostion Being Evaluated By Hospitalist Patient Instructions My [facility] Health Problem Qualifiers
[2016-10-27 23:38] VITALS: BP 121/76; PULSE 69; TEMP 36.6; O2SAT 90
[2016-10-28] VITALS: BP 121/76; PULSE 69; TEMP 36.6; O2SAT 90; Ht 182.9 cm; Wt 100.9 kg
[2016-10-28 00:17] LABS: URINE APPEARANCE CLEAR (CLEAR); URINE BILIRUBIN NEG (NEG); URINE COLOR YELLOW; URINE EPITHELIAL CELL AUTO 0-5 /lpf (0-5); URINE NITRITE NEG (NEG); URINE PH 5.5 (4.5-7.5); URINE SPECIFIC GRAVITY 1.015 (1.000-1.030); UROBILINOGEN NEG (NEG)
[2016-10-28 00:18] LABS: MANUAL MICROSCOPIC REQUIRED? NO; REVIEW REQ? NO
[2016-10-28] MEDS ORDERED: CARVEDILOL 6.25 MG TAB PO ONE (00:38)
[2016-10-28] MEDS ORDERED: GABAPENTIN 300 MG CAP PO ONE (00:38)
[2016-10-28] MEDS ORDERED: FUROSEMIDE INJ 20 MG in SYRINGE 0 ML IV STA (01:13)
[2016-10-28] MEDS: PRAVASTATIN SOD 40 MG TAB PO SCH ×2 (01:37→20:39)
--- NOTE | 2016-10-28 04:57 | History and Physical ---
History & Physical Date & Time of Service: Oct 27, 2016 at 21:11 Chief Complaint: Excessive Wt Gain, Sob Primary Care Physician: Neha Wilson M.D. History of Present Illness Source: patient, clinic records, hospital records Mr Davila is a 61 year old male who presents to the ER due to elevated Cr performed by his PCP (currently [facility]). Cr 2.8. In the ER his Cr is now 2.3. He notes he has been compliant with all his medications, although he is between insurance policies therefore is now under [facility] rather than Dr Wilson. He has been commuting to [place] for his job and therefore stays in a hotel and eats out x3 nights/week therefore his sodium intake has dramatically increased recently. He feels he has gained around 20lb in the last 2 weeks. He is on 2mg bumex at night time as during the day time he feels too dizzy as his BP gets too low. He denies any chest pain or shortness of breath at rest. He feels he is becoming more short of breath on exertion but is unclear whether this may be due to him wearing a boot for his diabetic foot ulcer. His legs feel more swollen. No recent changes to his medications He has a wound care appointment tomorrow and request seeing a wound care nurse if staying in hospital as this is what he was advised on his last hospitalization. Last echocardiogram August 2016 * Ejection Fraction = 40-45%. * There appears to be restrictive diastolic filling * Global hypokinesis with severe hypokinesis of the basal inferior and anterior apical segments Past Medical/Surgical History Medical Problems: (1) CHF (congestive heart failure) Status: Chronic (2) Coronary artery disease Status: Chronic (3) H/O cardiac pacemaker Status: Resolved (4) Hypertension Status: Chronic Surgical Problems: (1) H/O cardiac catheterization Status: Resolved (2) S/P CABG (coronary artery bypass graft) Status: Resolved (3) S/P cholecystectomy Status: Resolved (4) Stented coronary artery Status: Resolved Family History No pertinent family history Social History Smoking Status: Never Smoker Drug Use: none Marital Status: Housing status: lives with family Occupational Status: employed Multi-Drug Resistant Organisms History of MDRO: Yes Type of MDRO: MRSA Allergies Coded Allergies: No Known Allergies (Unverified , 10/27/16) Home Medications Scheduled Aspirin (Aspirin Ec), 325 MG PO QAM Bumetanide (Bumex), 2 MG PO QPM Carvedilol (Coreg), 6.25 MG PO BID Clopidogrel (Plavix), 75 MG PO QAM Cyanocobalamin (Cyanocobalamin), 1 ML IM MONTHLY Cyanocobalamin (Vitamin B-12), 1,000 MCG PO QAM Gabapentin (Neurontin), 600 MG PO QPM Pravastatin Sodium (Pravastatin Sodium), 1 TAB PO HS Sacubitril-Valsartan (Entresto 97-103 mg), 1 TAB PO BID Sulfa/Trimethoprim (Bactrim Ds 800MG/160MG), 1 TAB PO BID Scheduled PRN Albuterol (Ventolin Hfa), 2 PUFFS PO Q6H PRN for cough, sob, wheeze Nitroglycerin (Nitrostat), 0.4 MG SL q5min PRN for Chest Pain Review of Systems Constitutional: No fever, No chills Eyes: No worsening of vision ENT: No hearing loss Respiratory: + dyspnea on exertion, No cough, No sputum, No wheezing, No dyspnea at rest Cardiovascular: + edema (appears better than normal), No chest pain, No orthopnea, No PND Abdomen: No pain, No nausea, No vomiting, No diarrhea, No constipation, No GI bleeding Musculoskeletal: No joint pain, No muscle pain Genitourinary - Male: No hematuria, No dysuria, No urinary frequency, No urinary urgency Neurologic: No weakness Physical Exam Vital Signs Date Time Temp Pulse Resp B/P (MAP) Pulse Ox O2 Delivery O2 Flow Rate FiO2 10/27/16 19:34 96 Room Air 10/27/16 19:34 96 Room Air 10/27/16 19:26 73 10/27/16 19:00 37.2 73 18 118/78 93 Room Air General Appearance: WD/WN, no apparent distress Neck: supple, trachea midline, + JVD Respiratory/Chest: chest non-tender, lungs clear, normal breath sounds, no respiratory distress, no accessory muscle use Cardiovascular: regular rate, rhythm, no murmur, normal peripheral pulses (PT/ DP b/l) Abdomen/GI: normal bowel sounds, non tender, soft Extremities/Musculoskelatal: normal capillary refill, + pedal edema (1+ to knees b/l) 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 (no facial droop), no motor/sensory deficits (grossly), alert, normal mood/affect, oriented x 3 Skin: normal color, warm/dry, no rash Diagnostics Laboratory Results Results Past 24 Hours Test 10/27/16 19:34 Range/Units White Blood Count 4.75 4.8-10.8 K/uL Red Blood Count 3.52 4.7-6.1 M/uL Hemoglobin 9.9 14.0-18.0 g/dL Hematocrit 31.4 42-52 % Mean Corpuscular Volume 89.2 80-100 fL Mean Corpuscular Hemoglobin 28.1 25-34 pg Mean Corpuscular Hemoglobin Concent 31.5 32-36 g/dl Platelet Count 272 130-400 K/uL Mean Platelet Volume 9.1 7.4-10.4 fL Neutrophils (%) (Auto) 71.2 % Lymphocytes (%) (Auto) 18.7 % Monocytes (%) (Auto) 5.3 % Eosinophils (%) (Auto) 4.2 % Basophils (%) (Auto) 0.4 % Neutrophils # (Auto) 3.38 1.4-6.5 K/uL Lymphocytes # (Auto) 0.89 1.2-3.4 K/uL Monocytes # (Auto) 0.25 0.11-0.59 K/uL Eosinophils # (Auto) 0.20 0-0.5 K/uL Basophils # (Auto) 0.02 0-0.2 K/uL RDW Standard Deviation 51.2 36.4-46.3 fL RDW Coefficient of Variation 15.9 11.5-14.5 % Immature Granulocyte % (Auto) 0.2 % Immature Granulocyte # (Auto) 0.01 0.00-0.02 K/uL Sodium Level 137 136-145 mmol/L Potassium Level 5.1 3.5-5.1 mmol/L Chloride Level 108 98-107 mmol/L Carbon Dioxide Level 25 21-32 mmol/L Anion Gap 4.0 3-11 mmol/L Blood Urea Nitrogen 57 7-18 mg/dl Creatinine 2.30 0.60-1.40 mg/dl Est Creatinine Clear Calc Drug Dose 43.4 ml/min Estimated GFR () 34.5 Estimated GFR (Non- 29.8 BUN/Creatinine Ratio 25.0 10-20 Random Glucose 86 70-99 mg/dl Calcium Level 8.4 8.5-10.1 mg/dl Total Bilirubin 0.7 0.2-1 mg/dl Aspartate Amino Transf (AST/SGOT) 9 15-37 U/L Alanine Aminotransferase (ALT/SGPT) 11 12-78 U/L Alkaline Phosphatase 133 45-117 U/L Total Creatine Kinase 63 39-308 U/L Creatine Kinase MB 1.3 0.5-3.6 ng/ml Creatine Kinase MB Ratio 2.1 0-3.0 Troponin I 0.795 0-0.045 ng/ml Pro-B-Type Natriuretic Peptide 8383 0-900 pg/ml Total Protein 8.2 6.4-8.2 gm/dl Albumin 3.5 3.4-5.0 gm/dl Globulin 4.7 2.5-4.0 gm/dl Albumin/Globulin Ratio 0.7 0.9-2 Diagnostic Radiology CHEST ONE VIEW PORTABLE CLINICAL HISTORY: Is a breath. Respiratory distress. Excessive weight gain. COMPARISON STUDY: 09/14/2016 FINDINGS: The heart remains enlarged. There is a left subclavian pacer/defibrillator present. There are postsurgical changes of midline sternotomy. There is radiographic evidence of mild central pulmonary vascular congestion. There are small bilateral pleural effusions. There is no focal pulmonary consolidation.[ IMPRESSION: Cardiomegaly and mild central pulmonary vascular congestion. Small bilateral pleural effusions. No significant change from the preceding study. Electronically signed by: Nikita Brian M.D. 10/27/2016 7:39 PM Dictated Date/Time: 10/27/2016 7:37 PM EKG Sinus rhythm with 1st degree A-V block Ventricular rate 72 bpm Right ventricular hypertrophy No change from prior EKG (15-SEP-2016) Impression Assessment and Plan 61 year old male with restrictive ischemic cardiomyopathy and coronary artery disease s/p double bypass presents to the ER due to elevated Cr on outside labs Acute renal failure - hold entresto - IV lasix 20 mg in ER, then overnight as BP allows - stop nitro paste in the morning to ensure he is stable to go home without - repeat Cr in morning Coronary artery disease / acute on chronic restrictive and congestive heart failure - likely due to recent poor dietary choices - discussed with Dr Arshad and patient has poor compliance with medications and currently with [facility] therefore will admit overnight for diuresis and repeat Cr in morning - IV lasix given in the ER - consult cardiology in the morning - continue ASA, clopidogrel, pravastatin and carvedilol - suspect much of his weight gain is Elevated JVD - never had sleep study, degree of JVD doesn't appear to match his pulmonary edema, EKG with likely right ventricular hypertrophy and previous echo with elevated right arterial pressure. - recommend outpatient sleep study for assessment of DIGNA Elevated troponin - at baseline, no need to repeat unless he starts having symptoms VTE Prophylaxis - heparin 5000 units SQ Q8H - SCDs + TEDs Code - Full Disposition - observation status on med/surg Resident Physician Supervision Note: I was present with Dr. Martinez during the history and exam. I discussed the case with the resident and agree with the findings and plan as documented in the note. Any exceptions or clarifications are listed here: 61 y/o M Hx CAD, HTN, HPL, combined CHF - had noted weight gain and exertional dyspnea over past few weeks. Admits to dietary indescretion due to work and related travel. Pt had labs drawn at PCP office and was called to attend hospital as his creatinine had doubled. 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 Y/N: Yes Risk Level: Moderate Given or contraindicated: Unfractionated heparin SQ, T.E.D. Stockings, SCD's Additional Copies To [facility]; Bhanu Arshad, DO; Neha Wilson M.D. Resident Tracking Resident Involvement: Resident Care Provided Care Provided: Adult Hospital Medicine
[2016-10-28 06:46] LABS: BASO ABS # 0.04 K/uL (0-0.2); COMPLETE YES; EOS % 5.5 %; HEMATOCRIT 28.9 % (42-52); IG% 0.3 %; LYMPH ABS # 0.84 K/uL (1.2-3.4); MEAN CELL VOLUME 88.7 fL (80-100); MEAN CORPUSCULAR HEMOGLOBIN 27.9 pg (25-34); MEAN CORPUSCULAR HGB CONC 31.5 g/dl (32-36); MEAN PLATELET VOLUME 9.4 fL (7.4-10.4); MONO % 8.8 %; NEUT % 63.4 %; PLATELET COUNT 243 K/uL (130-400); RED BLOOD COUNT 3.26 M/uL (4.7-6.1)
[2016-10-28 06:53] LABS: INR 1.1 (0.9-1.1); PARTIAL THROMBOPLASTIN RATIO 1.2; PROTHROMBIN TIME (PATIENT) 11.7 SECONDS (9.0-12.0)
[2016-10-28 07:15] LABS: BUN/CREATININE RATIO 23.1 (10-20); CALCIUM 8.3 mg/dl (8.5-10.1); CREATININE 2.2 mg/dl (0.60-1.40); POTASSIUM 4.4 mmol/L (3.5-5.1)
[2016-10-28 07:24] VITALS: BP 107/66; PULSE 59; TEMP 36.7; O2SAT 95
[2016-10-28] MEDS: CLOPIDOGREL BISULFATE 75 MG TAB PO SCH (07:45)
[2016-10-28] MEDS: HEPARIN SOD 5000 UNIT/0.5 ML CARP SQ SCH ×3 (07:45→23:57)
[2016-10-28 07:46] VITALS: BP 110/62; PULSE 62
[2016-10-28] MEDS: ASPIRIN 325 MG ECTAB PO SCH (07:46)
[2016-10-28] MEDS: CARVEDILOL 6.25 MG TAB PO SCH ×2 (07:46→20:38)
[2016-10-28] MEDS ORDERED: SACUBITRIL VALSARTAN PO SCH (08:00)
--- NOTE | 2016-10-28 08:37 | Family Medicine Progress Note ---
Progress Note Date of Service Oct 28, 2016. Subjective Pt evaluation today including: conversation w/ patient, physical exam, chart review, lab review, review of studies Found pt resting comfortably in bed. Denied any CP, SOB. Still concerned about his weight gain, wonders if related to poor diet while traveling a lot. No other acute c/o. Constitutional: No fever, No chills Respiratory: + shortness of breath, No cough Cardiovascular: + edema, No chest pain Abdomen: No pain, No nausea, No vomiting, No diarrhea Medications Current Inpatient Medications Medications (Trade) Dose Ordered Sig/Nika Route Start Time Stop Time Status Last Admin Dose Admin Heparin Sodium (Porcine) (Heparin Sq 5000 Unit/0.5ml) 5,000 unit Q8H SQ 10/28/16 08:00 11/27/16 07:59 Acetaminophen (Tylenol Tab) 650 mg Q4H PRN PO 10/27/16 22:15 11/26/16 22:14 Ondansetron HCl (Zofran Inj) 4 mg Q6H PRN IV 10/27/16 22:15 11/26/16 22:14 Albuterol (Ventolin Hfa Inhaler) 2 puffs Q6H PRN INH 10/27/16 22:15 11/26/16 22:14 Aspirin (Ecotrin Tab) 325 mg QAM PO 10/28/16 08:00 11/27/16 08:59 10/28/16 07:46 325 MG Carvedilol (Coreg Tab) 6.25 mg BID PO 10/28/16 08:00 11/27/16 08:59 10/28/16 07:46 6.25 MG Clopidogrel Bisulfate (plAVix TAB) 75 mg QAM PO 10/28/16 08:00 11/27/16 08:59 10/28/16 07:45 75 MG Gabapentin (Neurontin Cap) 600 mg QPM PO 10/28/16 21:00 11/27/16 20:59 Pravastatin Sodium (Pravachol Tab) 80 mg HS PO 10/28/16 01:00 11/27/16 00:59 10/28/16 01:37 80 MG Miscellaneous (Iv Fluids Completed) 1 ea PRN PRN N/A 10/27/16 22:45 10/27/17 22:44 Objective Vital Signs Date Time Temp Pulse Resp B/P (MAP) Pulse Ox O2 Delivery O2 Flow Rate FiO2 10/28/16 07:46 62 110/62 (78) 10/28/16 07:24 36.7 59 18 107/66 (80) 95 Room Air 10/28/16 00:00 90 Room Air 10/28/16 00:00 36.6 69 20 121/76 90 Room Air 10/27/16 23:38 36.6 69 20 121/76 (91) 90 Room Air 10/27/16 22:34 37.2 71 20 177/107 95 10/27/16 22:25 71 20 177/107 95 10/27/16 22:21 73 93 10/27/16 22:16 75 90 10/27/16 22:11 73 90 10/27/16 22:06 74 90 10/27/16 22:01 73 93 10/27/16 21:56 73 92 10/27/16 21:51 73 94 10/27/16 21:46 76 91 10/27/16 21:41 71 93 10/27/16 21:36 78 91 10/27/16 21:26 73 91 10/27/16 21:21 76 91 10/27/16 21:16 72 92 10/27/16 21:11 73 91 10/27/16 21:06 75 87 10/27/16 21:01 73 93 10/27/16 20:56 73 91 10/27/16 20:51 72 94 10/27/16 20:46 75 90 10/27/16 20:41 77 93 10/27/16 20:36 74 90 10/27/16 20:31 73 91 10/27/16 20:26 75 89 10/27/16 20:21 71 95 10/27/16 20:16 72 92 10/27/16 20:11 76 90 10/27/16 20:06 76 15 93 10/27/16 20:01 75 18 93 10/27/16 19:56 77 15 91 10/27/16 19:51 71 10 95 10/27/16 19:46 74 15 92 10/27/16 19:41 73 92 10/27/16 19:36 72 94 10/27/16 19:34 96 Room Air 10/27/16 19:34 96 Room Air 10/27/16 19:31 73 93 10/27/16 19:26 73 96 10/27/16 19:26 73 10/27/16 19:21 72 91 10/27/16 19:16 73 93 10/27/16 19:00 37.2 73 18 118/78 93 Room Air Physical Exam General Appearance: WD/WN, no apparent distress Respiratory/Chest: lungs clear, normal breath sounds, no respiratory distress Cardiovascular: regular rate, rhythm, no murmur Abdomen: normal bowel sounds, non tender, soft Extremities: + pedal edema (trace to 1+ bilateral pedal/pretibial edema), + pertinent finding (Right great toe ulcer medially, not draining, not notably erythematous) Laboratory Results 10/28/16 05:58 Red Blood Count 3.26, Mean Corpuscular Volume 88.7, Mean Corpuscular Hemoglobin 27.9, Mean Corpuscular Hemoglobin Concent 31.5, Mean Platelet Volume 9.4, Neutrophils (%) (Auto) 63.4, Lymphocytes (%) (Auto) 21.0, Monocytes (%) (Auto) 8.8, Eosinophils (%) (Auto) 5.5, Basophils (%) (Auto) 1.0, Neutrophils # (Auto) 2.54, Lymphocytes # (Auto) 0.84, Monocytes # (Auto) 0.35, Eosinophils # (Auto) 0.22, Basophils # (Auto) 0.04 10/28/16 05:58 Test 10/27/16 19:34 10/28/16 00:01 10/28/16 05:58 Total Bilirubin 0.7 mg/dl (0.2-1) Aspartate Amino Transf (AST/SGOT) 9 U/L (15-37) Alanine Aminotransferase (ALT/SGPT) 11 U/L (12-78) Alkaline Phosphatase 133 U/L (45-117) Total Creatine Kinase 63 U/L (39-308) Creatine Kinase MB 1.3 ng/ml (0.5-3.6) Creatine Kinase MB Ratio 2.1 (0-3.0) Troponin I 0.795 ng/ml (0-0.045) Pro-B-Type Natriuretic Peptide 8383 pg/ml (0-900) Total Protein 8.2 gm/dl (6.4-8.2) Albumin 3.5 gm/dl (3.4-5.0) Globulin 4.7 gm/dl (2.5-4.0) Albumin/Globulin Ratio 0.7 (0.9-2) Urine Color YELLOW Urine Appearance CLEAR (CLEAR) Urine pH 5.5 (4.5-7.5) Urine Specific [place] 1.015 (1.000-1.030) Urine Protein TRACE (NEG) Urine Glucose (UA) NEG (NEG) Urine Ketones NEG (NEG) Urine Occult Blood TRACE (NEG) Urine Nitrite NEG (NEG) Urine Bilirubin NEG (NEG) Urine Urobilinogen NEG (NEG) Urine Leukocyte Esterase NEG (NEG) Urine WBC (Auto) 0 /hpf (0-5) Urine RBC (Auto) 0-4 /hpf (0-4) Urine Hyaline Casts (Auto) 0 /lpf (0-5) Urine Epithelial Cells (Auto) 0-5 /lpf (0-5) Urine Bacteria (Auto) NEG (NEG) White Blood Count 4.00 K/uL (4.8-10.8) Red Blood Count 3.26 M/uL (4.7-6.1) Hemoglobin 9.1 g/dL (14.0-18.0) Hematocrit 28.9 % (42-52) Mean Corpuscular Volume 88.7 fL (80-100) Mean Corpuscular Hemoglobin 27.9 pg (25-34) Mean Corpuscular Hemoglobin Concent 31.5 g/dl (32-36) Platelet Count 243 K/uL (130-400) Mean Platelet Volume 9.4 fL (7.4-10.4) Neutrophils (%) (Auto) 63.4 % Lymphocytes (%) (Auto) 21.0 % Monocytes (%) (Auto) 8.8 % Eosinophils (%) (Auto) 5.5 % Basophils (%) (Auto) 1.0 % Neutrophils # (Auto) 2.54 K/uL (1.4-6.5) Lymphocytes # (Auto) 0.84 K/uL (1.2-3.4) Monocytes # (Auto) 0.35 K/uL (0.11-0.59) Eosinophils # (Auto) 0.22 K/uL (0-0.5) Basophils # (Auto) 0.04 K/uL (0-0.2) RDW Standard Deviation 51.6 fL (36.4-46.3) RDW Coefficient of Variation 15.9 % (11.5-14.5) Immature Granulocyte % (Auto) 0.3 % Immature Granulocyte # (Auto) 0.01 K/uL (0.00-0.02) Prothrombin Time 11.7 SECONDS (9.0-12.0) Prothromb Time International Ratio 1.1 (0.9-1.1) Activated Partial Thromboplast Time 29.9 SECONDS (21.0-31.0) Partial Thromboplastin Ratio 1.2 Anion Gap 9.0 mmol/L (3-11) Est Creatinine Clear Calc Drug Dose 44.8 ml/min Estimated GFR () 36.4 Estimated GFR (Non- 31.4 BUN/Creatinine Ratio 23.1 (10-20) Calcium Level 8.3 mg/dl (8.5-10.1) Assessment and Plan 61 year old male with restrictive ischemic cardiomyopathy and CAD s/p double bypass presents to the ER due to elevated Cr on outside labs. Acute renal failure: - hold entresto - Can cont Carvedilol for HTN - ARB held in setting of acute ARF - He normally takes Bumex - may need baseline increase although, again, we have to consider probable increased sodium intake recently - IV lasix 20 mg in ER, then overnight as BP allows - stop nitro paste in the morning to ensure he is stable to go home without - repeat Cr in morning Elevated JVD: - never had sleep study, degree of JVD doesn't appear to match his pulmonary edema, EKG with likely right ventricular hypertrophy and previous echo with elevated right arterial pressure. - recommend outpatient sleep study for assessment of DIGNA PMH: Coronary artery disease / acute on chronic restrictive and congestive heart failure: - likely due to recent poor dietary choices - discussed with Dr Arshad and patient has poor compliance with medications and currently with CVIM therefore will admit overnight for diuresis and repeat Cr in morning - Single dose IV lasix given in the ER [ ] Cardiology consult pending, appreciate recs. Reportedly Dr. Arshad is his language translator. - continue ASA, clopidogrel, pravastatin and carvedilol PMH Elevated troponin: Appears at baseline for pt. - Will likely not repeat unless he starts having symptoms PMH Right toe ulcer: Ongoing, pt says related to DM. Doesn't appear acutely infected on exam. [ ] Wound care consult pending, appreciate recs. DVT prophy: Heparin, SCD's, ANCA's Code status: Full Will discuss all the above on attending rounds this morning. Margy, PGY1 Family Services Worker Tracking Resident Involvement: Resident Care Provided Care Provided: Adult Hospital Medicine (inpt rounds) History Resident Physician Supervision Note: I was present with Dr. Marti during the history and exam. I discussed the case with the resident and agree with the findings and plan as documented in the note. Any exceptions or clarifications are listed here. Pt reports persistent shortness of breath with exertion and somewhat at rest with notable abdominal distention which has appeared over the last several weeks. He confirms his history of 15 lb weight gain on home scale and rapid weight fluctuations of late on the same without significant LE swelling. General Appearance: WD/WN, no apparent distress Respiratory: chest non-tender, lungs clear, normal breath sounds, no respiratory distress Cardiovascular: normal peripheral pulses, regular rate, rhythm, no murmur, other (very slight LE edema to the midshin) Gastrointestinal: normal bowel sounds, non tender, soft, no organomegaly, other (some ?fluid wave on exam) Assessment/Plan 61 y/o male h/o ischemic cardiomyopathy and CAD s/p bypass presents w/ TISHA TISHA - avoid nephrotoxic medications - minimal improvement with Bumex at present , though I/O not greatly impacted - trend Cr, Urine/serum osms/Na in AM CAD, CHF - cardiology aware - continue ASA, plavix, pravastatin, coreg RLE ulcer - wound care consulted, input appreciated Elevated troponin - at baseline
--- NOTE | 2016-10-28 09:41 | CARDIOLOGY CONSULTATION ---
DATE OF CONSULTATION: 10/28/2016 DATE OF CONSULTATION: 10/28/2016 REASON FOR CONSULTATION: Acute on chronic systolic heart failure. RING ATTACHER: Bhanu Arshad D.O., [facility]. REQUESTING: Dr. Woo. Dear Dr. Woo: Thank you for requesting cardiology consultation on Adams with regards to his acute on chronic systolic heart failure. Unfortunately, Adams's current job and lifestyle or contributing to significant worsening of his underlying heart failure. In addition, he has been noncompliant with his diet which is contributing as well. He has left the [employer] and is now working for [employer] in [facility] and commutes from [place] to [employer] on Mondays and returns on . Unfortunately, he is sleeping in a hotel for 3 consecutive nights and seating all of his meals out either at the employer's cafeteria or eating in restaurants in the evening. He gained 20 pounds of weight over the last couple of weeks. He describes significant increased abdominal distention. Last evening when he drove home from [place] he noted that he had lower extremity edema and had a hard time getting his shoes off due to swelling of his feet. He denies any chest pain, chest pressure, chest heaviness. He denies any PND or orthopnea. He does describe some chronic shortness of breath and he thought it was slightly worse over the last week. He denies any palpitations, fluttering, skips, feeling his heart racing. Denies any bleeding, bruising, dark stools or black stools. He has been followed at [facility] as he does not currently have health insurance. They have been giving him Entresto and he describes being compliant with his medications. He takes his Bumex at night 2 mg as he tries to avoid having to frequently go to the bathroom while at work during the day. He denies any ICD shocks that he is aware from his defibrillator. He has been weighing himself at the gym in a motel and he noted a 5 pound weight gain between yesterday morning and last evening. The rest of the review of systems is otherwise negative. PAST MEDICAL HISTORY: 1. Coronary artery disease status post coronary bypass grafting x2 with a MALDONADO to the LAD and SVG to OM1. 2. Cardiac catheterization in September 2016, unchanged from his prior catheterization of January 2016. 3. Cardiac catheterization January 2016 unchanged from his previous catheterizations. 4. Cardiac catheterization 03/24/2015 severe proximal LAD disease with a patent MALDONAOD to the LAD, severe stenosis of OM1 with a patent vein graft to OM1, severe disease in small OM2 with mild to moderate disease in the right coronary artery. 5. Cardiac catheterization November 2014 with POBA to OM2. 6. Moderate ischemic cardiomyopathy with an ejection fraction in the range of 35-40%. 7. Single chamber defibrillator with a [employer] device. 8. Diabetes mellitus type 2. 9. Hypertension. 10. Extensive secondhand tobacco exposure. 11. Chronic systolic heart failure, [place] Heart Association class 2. 12. Incomplete right bundle branch block. 13. Non-ST elevation myocardial infarction October 2015. 14. Aspiration pneumonitis post-anesthesia October 2015. MEDICATIONS: Reviewed in electronic medical record. ALLERGIES: No known drug allergies. SOCIAL HISTORY: Lifetime nonsmoker. He is . He is working for [employer] in [place]. FAMILY HISTORY: Significant for premature heart disease. PHYSICAL EXAMINATION: GENERAL: He is awake, alert, oriented x3. He is in no acute distress. VITAL SIGNS: His heart rate is 62, blood pressure 110/62, sat is 95% on room air. HEAD, EYES, EARS, NOSE, AND THROAT: Moderately reduced carotid upstrokes, no evidence of carotid bruits. Jugular venous pressure appeared elevated. Sclerae is anicteric. His hearing is normal. LUNGS: Decreased breath sounds in the bases bilaterally. No rales, rhonchi or wheezing. HEART: Regular rate and rhythm. He does have an S3 gallop. There were no appreciable murmurs. ABDOMEN: Soft, distended. Positive bowel sounds. SKIN: Positive fluid wave. EXTREMITIES: No clubbing or cyanosis or edema. PSYCHIATRIC: His affect appeared appropriate. NEUROLOGIC: He is grossly nonfocal. LABORATORY DATA: Hemoglobin 9.1, platelet count of 243. Sodium 141, potassium 4.4, BUN 51, creatinine 2.2. AST and ALT were normal. Troponin was 0.795. His proBNP was 8383. Chest x-ray bilateral pleural effusions and central pulmonary venous congestion. IMPRESSIONS: 1. Acute on chronic systolic heart failure. 2. Dietary and lifestyle noncompliance. 3. Moderate ischemic cardiomyopathy with an ejection fraction in the range of 35-40%. 4. [place] Heart Association class C functional class 2. 5. Coronary artery disease status post coronary bypass grafting x2 in December 2013 with a patent MALDONADO to the LAD and a patent vein graft to OM1. 6. Repeat cardiac catheterization in September 2016, unchanged from his previous with severe proximal LAD diagonal disease with patent grafts. 7. Incomplete right bundle branch block. 8. Acute kidney injury on chronic kidney disease. Hopefully, his acute kidney injury is just related to worsening heart failure. It looks like all of his volume is in his abdomen and then with 3-1/2 to [address] home yesterday he had more significant dependent edema. He has been noncompliant with his diet. Unfortunately, he does not understand how sick he is. He does not understand that it is a significant balancing act for him to stay out of heart failure and any noncompliance with his salt consumption has caused him to have repeated episodes of heart failure. I would agree with holding his Entresto for now. Given his relatively low blood pressure he may not be able to go back on the max dose of Entresto once his renal function normalizes. With 20 mg of IV Lasix in the ER, he has had improvement in his overall volume status. He still has a significant amount of volume to get off and given his abdominal distention and likely swelling of his abdominal contents from his heart failure oral diuretics as we have seen and had not been successful for him. I would give him 1 mg of IV Bumex this morning with plan to give him another milligram this afternoon. Hopefully, he will slowly diurese without worsening his renal function. Will have to closely follow his creatinine and potassium and if he has worsening renal function he may need nephrology consultation. Otherwise, he should remain on his current medical regimen. He should follow 2 gram sodium diet. He needs daily weights. I discussed with him if he continues to live the lifestyle he is living, he is only going to have progressive heart failure and increases his risk of cardiac complications and cardiac . Thank you for allowing us to participate in his care.
[2016-10-28] MEDS: BUMETANIDE IV 1 MG in SYRINGE 0 ML IV SCH ×2 (10:36→17:30)
[2016-10-28 15:31] LABS: BUN/CREATININE RATIO 22.6 (10-20); CALCIUM 8.8 mg/dl (8.5-10.1); CREATININE 2.3 mg/dl (0.60-1.40)
[2016-10-28 15:35] VITALS: BP 106/66; PULSE 57; TEMP 36.6; O2SAT 91
[2016-10-28 16:02] LABS: POTASSIUM 4.8 mmol/L (3.5-5.1)
[2016-10-28 18:00] VITALS: O2SAT 93
[2016-10-28] MEDS: GABAPENTIN 300 MG CAP PO SCH (20:38)
[2016-10-29 00:04] VITALS: BP 113/64; PULSE 65; TEMP 36.9; O2SAT 92
[2016-10-29 07:10] VITALS: BP 109/69; PULSE 59; TEMP 36.9; O2SAT 93
[2016-10-29] MEDS: HEPARIN SOD 5000 UNIT/0.5 ML CARP SQ SCH ×2 (08:00→16:00)
[2016-10-29 08:41] LABS: BUN/CREATININE RATIO 23.2 (10-20); CALCIUM 8.8 mg/dl (8.5-10.1); CREATININE 2.1 mg/dl (0.60-1.40); POTASSIUM 4.9 mmol/L (3.5-5.1)
[2016-10-29] MEDS: CARVEDILOL 6.25 MG TAB PO SCH ×2 (08:57→20:44)
[2016-10-29] MEDS: CLOPIDOGREL BISULFATE 75 MG TAB PO SCH (08:57)
[2016-10-29] MEDS: ASPIRIN 325 MG ECTAB PO SCH (08:57)
[2016-10-29] MEDS: BUMETANIDE IV 1 MG in SYRINGE 0 ML IV SCH (09:04)
[2016-10-29] MEDS ORDERED: BUMETANIDE SOLN 1 MG/4 ML VIAL IV ONE (10:15)
[2016-10-29] MEDS ORDERED: BUMETANIDE IV 1 MG in SYRINGE 0 ML IV ONE (10:45)
--- NOTE | 2016-10-29 12:31 | Cardiology Follow-Up ---
Subjective General Date of Service: Oct 29, 2016. Pt evaluation today including: conversation w/ patient, chart review, lab review, review of studies, conversation w/ professional benefits sales consultant History of Present Illness The patient is a 61 year old male Allergies Coded Allergies: No Known Allergies (Unverified , 10/27/16) Social History Smoking Status: Never Smoker Hx Tobacco Use In Past Year?: No Hx Alcohol Use - Type And Amou: Yes (rarely) Hx Substance Use - Type And Am: No Problem List Medical Problems: (1) Acute kidney injury Status: Acute (2) CHF (congestive heart failure) Status: Chronic (3) Elevated troponin Status: Acute (4) Elevated troponin Status: Acute (5) Elevated troponin I level Status: Acute (6) Elevated troponin I level Status: Acute (7) Exertional chest pain Status: Acute (8) NSTEMI (non-ST elevated myocardial infarction) Status: Acute (9) Pulmonary edema Status: Acute (10) Pulmonary edema Status: Acute (11) SOB (shortness of breath) Status: Acute Review of Systems Respiratory: No cough, No shortness of breath, No dyspnea at rest Cardiac: No chest pain, No edema, No palpitations Physical Exam Vital Signs Last Vital Signs Documentation Date Time Temp Pulse Resp B/P (MAP) Pulse Ox O2 Delivery O2 Flow Rate FiO2 10/29/16 08:00 Room Air 10/29/16 07:10 36.9 59 18 109/69 (82) 93 Physical Exam Constitutional: Level of Distress: NAD, chronically ill Lungs: Respiratory effort: no dyspnea Auscultation: breath sounds normal, no wheezing, no rales/crackles, no rhonchi Cardiovascular: Heart Auscultation: RRR, no murmurs, no rubs, no gallops Abdomen: Bowel Sounds: normal Inspection & Palpation: no tenderness, guarding & rebound, distended Extremities: no edema Assessment and Plan Assessment and Plan IMPRESSIONS: 1. Acute on chronic systolic heart failure. 2. Dietary and lifestyle noncompliance. 3. Moderate ischemic cardiomyopathy with an ejection fraction in the range of 35-40%. 4. [place] Heart Association class C functional class 2. 5. Coronary artery disease status post coronary bypass grafting x2 in December 2013 with a patent MALDONADO to the LAD and a patent vein graft to OM1. 6. Repeat cardiac catheterization in September 2016, unchanged from his previous with severe proximal LAD diagonal disease with patent grafts. 7. Incomplete right bundle branch block. 8. Acute kidney injury on chronic kidney disease. Although I/O only mildly negative his weight is down 5 kg if correct Increase Bumex to 2mg IV BID Watch DIRECTOR OF OUTSIDE SALES and K+ Depending on DIRECTOR OF OUTSIDE SALES we will need to consider reinitiation of entresto possibly as an outpt Hopefully home tomorrow with PO Bumex Laboratory Results Last 24 Hours Test 10/28/16 14:57 10/28/16 16:45 10/28/16 19:50 10/28/16 20:34 Sodium Level 139 mmol/L Potassium Level 4.8 mmol/L Chloride Level 103 mmol/L Carbon Dioxide Level 26 mmol/L Anion Gap 10.0 mmol/L Blood Urea Nitrogen 52 mg/dl Creatinine 2.30 mg/dl Est Creatinine Clear Calc Drug Dose 42.8 ml/min Estimated GFR () 34.5 Estimated GFR (Non- 29.8 BUN/Creatinine Ratio 22.6 Random Glucose 152 mg/dl Calcium Level 8.8 mg/dl Bedside Glucose 122 mg/dl 132 mg/dl Urine Osmolality 370 mOms/kg Urine Random Sodium 97 mEq/L Test 10/29/16 07:34 10/29/16 07:41 10/29/16 11:08 Bedside Glucose 109 mg/dl 120 mg/dl Sodium Level 137 mmol/L Potassium Level 4.9 mmol/L Chloride Level 106 mmol/L Carbon Dioxide Level 24 mmol/L Anion Gap 7.0 mmol/L Blood Urea Nitrogen 49 mg/dl Creatinine 2.10 mg/dl Est Creatinine Clear Calc Drug Dose 46.4 ml/min Estimated GFR () 38.5 Estimated GFR (Non- 33.2 BUN/Creatinine Ratio 23.2 Random Glucose 105 mg/dl Osmolality 304 mOsm/kg Calcium Level 8.8 mg/dl
[2016-10-29 14:53] VITALS: BP 110/71; PULSE 60; TEMP 36.6; O2SAT 94
[2016-10-29] MEDS: BUMETANIDE IV 2 MG in SYRINGE 0 ML IV SCH (16:48)
--- NOTE | 2016-10-29 19:44 | Family Medicine Progress Note ---
Progress Note Date of Service Oct 29, 2016. Subjective Pt evaluation today including: conversation w/ patient, physical exam, chart review, lab review Voiding: no voiding problems Patient resting comfortably, no complaints. States he as difficulty choosing the right foods to eat but recognizes that he has to change this if he wants to improve his quality of life. Constitutional: + weight loss (from abdomen), No fever, No chills, No sweats , No weakness, No fatigue, No problem reported Eyes: No worsening of vision, No eye pain, No redness, No discharge, No diplopia, No problem reported ENT: No hearing loss, No unusual epistaxis, No nasal symptoms, No sore throat, No tinnitus, No dental problems, No trouble swallowing, No problem reported Respiratory: + shortness of breath, No cough, No sputum, No wheezing, No dyspnea on exertion, No dyspnea at rest, No hemoptysis, No problem reported Cardiovascular: + edema Abdomen: No pain, No nausea, No vomiting, No diarrhea, No constipation, No GI bleeding, No problem reported All Other Systems: Reviewed and Negative Medications Current Inpatient Medications Medications (Trade) Dose Ordered Sig/Nika Route Start Time Stop Time Status Last Admin Dose Admin Heparin Sodium (Porcine) (Heparin Sq 5000 Unit/0.5ml) 5,000 unit Q8H SQ 10/28/16 08:00 11/27/16 07:59 Acetaminophen (Tylenol Tab) 650 mg Q4H PRN PO 10/27/16 22:15 11/26/16 22:14 Ondansetron HCl (Zofran Inj) 4 mg Q6H PRN IV 10/27/16 22:15 11/26/16 22:14 Albuterol (Ventolin Hfa Inhaler) 2 puffs Q6H PRN INH 10/27/16 22:15 11/26/16 22:14 Aspirin (Ecotrin Tab) 325 mg QAM PO 10/28/16 08:00 11/27/16 08:59 10/29/16 08:57 325 MG Carvedilol (Coreg Tab) 6.25 mg BID PO 10/28/16 08:00 11/27/16 08:59 10/29/16 20:44 6.25 MG Clopidogrel Bisulfate (plAVix TAB) 75 mg QAM PO 10/28/16 08:00 11/27/16 08:59 10/29/16 08:57 75 MG Gabapentin (Neurontin Cap) 600 mg QPM PO 10/28/16 21:00 11/27/16 20:59 10/29/16 20:44 600 MG Pravastatin Sodium (Pravachol Tab) 80 mg HS PO 10/28/16 01:00 11/27/16 00:59 10/29/16 20:44 80 MG Miscellaneous (Iv Fluids Completed) 1 ea PRN PRN N/A 10/27/16 22:45 10/27/17 22:44 Bumetanide 2 mg/ Syringe 8 ml @ 4 mls/min DAILY@ IV 10/29/16 17:00 11/28/16 16:59 10/29/16 16:48 4 MLS/MIN Objective Vital Signs Date Time Temp Pulse Resp B/P (MAP) Pulse Ox O2 Delivery O2 Flow Rate FiO2 10/29/16 19:52 Room Air 10/29/16 16:00 Room Air 10/29/16 14:53 36.6 60 110/71 (84) 94 Room Air 10/29/16 08:00 Room Air 10/29/16 07:10 36.9 59 18 109/69 (82) 93 Room Air 10/29/16 00:06 Room Air 10/29/16 00:04 36.9 65 18 113/64 (80) 92 Room Air Physical Exam General Appearance: WD/WN, no apparent distress Eyes: normal inspection, EOMI, sclerae normal ENT: hearing grossly normal Neck: supple, no JVD Respiratory/Chest: chest non-tender, lungs clear, normal breath sounds, no respiratory distress, no accessory muscle use Cardiovascular: regular rate, rhythm, no edema, no JVD, no murmur Abdomen: normal bowel sounds, non tender, soft Extremities: non-tender, normal inspection (ulcer on right great toe) Neurologic/Psychiatric: alert, normal mood/affect, oriented x 3 Laboratory Results 10/29/16 07:41 Test 10/29/16 07:41 10/29/16 20:05 Anion Gap 7.0 mmol/L (3-11) Est Creatinine Clear Calc Drug Dose 46.4 ml/min Estimated GFR () 38.5 Estimated GFR (Non- 33.2 BUN/Creatinine Ratio 23.2 (10-20) Osmolality 304 mOsm/kg (280-300) Calcium Level 8.8 mg/dl (8.5-10.1) Bedside Glucose 141 mg/dl (70-99) Assessment and Plan 61 year old male with restrictive ischemic cardiomyopathy and CAD s/p double bypass presents to the ER due to elevated Cr on outside labs. Acute renal failure: - hold entresto - Can cont Carvedilol for HTN - ARB held in setting of acute ARF - He normally takes Bumex - may need baseline increase although, again, we have to consider probable increased sodium intake recently - Increased to 2 mg daily, plus 1 mg given today - IV lasix as BP allows - stopped nitro paste this morning to ensure he is stable to go home without - repeat Cr in morning Elevated JVD: - never had sleep study, degree of JVD doesn't appear to match his pulmonary edema, EKG with likely right ventricular hypertrophy and previous echo with elevated right arterial pressure. - recommend outpatient sleep study for assessment of DIGNA PMH: Coronary artery disease / acute on chronic restrictive and congestive heart failure: - likely due to recent poor dietary choices - Patient has poor compliance with medications and currently with [facility] - Cardiology consult, appreciate recs: Increase Bumex to 2mg IV BID, Watch MANAGER PERFORMANCE and K+, Depending on MANAGER PERFORMANCE will consider restarting entresto as outpt Hopefully home tomorrow with PO Bumex - continue ASA, clopidogrel, pravastatin and carvedilol PMH Elevated troponin: Appears at baseline for pt. - Will likely not repeat unless he starts having symptoms PMH Right toe ulcer: Ongoing, pt says related to DM. Doesn't appear acutely infected on exam. - Wound care consulted, appreciate recs. DVT prophy: Heparin, SCD's, ANCA's Code status: Full Dispo: hopefully dc tomorrow History Pt seen and examined at bedside. Pt reports considerable urination and decrease and abdominal girth since bumex added. General Appearance: WD/WN, no apparent distress Respiratory: chest non-tender, lungs clear, normal breath sounds, no respiratory distress Cardiovascular: normal peripheral pulses, regular rate, rhythm, no murmur, other (improved abdominal distention with less fluid wave) Assessment/Plan 61 y/o male h/o ischemic cardiomyopathy and CAD s/p bypass presents w/ TISHA TISHA - avoid nephrotoxic medications - improving with Bumex slowly, trend Cr CAD, CHF - cardiology aware - continue ASA, plavix, pravastatin, coreg, increase bumex to 2mg BID RLE ulcer - wound care consulted, input appreciated, will restart bactrim in AM if Cr continues to improve Elevated troponin - at baseline Resident Tracking Resident Involvement: Resident Care Provided Care Provided: Adult Hospital Medicine
[2016-10-29] MEDS: GABAPENTIN 300 MG CAP PO SCH (20:44)
[2016-10-29] MEDS: PRAVASTATIN SOD 40 MG TAB PO SCH (20:44)
[2016-10-29 23:33] VITALS: BP 137/81; PULSE 67; TEMP 36.8; O2SAT 94
[2016-10-30 06:54] VITALS: BP 106/66; PULSE 57; TEMP 36.6; O2SAT 97
[2016-10-30] MEDS: HEPARIN SOD 5000 UNIT/0.5 ML CARP SQ SCH ×2 (08:00)
[2016-10-30 08:42] VITALS: PULSE 66
[2016-10-30] MEDS: ASPIRIN 325 MG ECTAB PO SCH (08:42)
[2016-10-30] MEDS: CARVEDILOL 6.25 MG TAB PO SCH (08:42)
[2016-10-30] MEDS: CLOPIDOGREL BISULFATE 75 MG TAB PO SCH (08:42)
[2016-10-30] MEDS: BUMETANIDE IV 2 MG in SYRINGE 0 ML IV SCH (08:42)
[2016-10-30 08:48] LABS: BUN/CREATININE RATIO 25.4 (10-20); POTASSIUM 4.7 mmol/L (3.5-5.1)
[2016-10-30] MEDS ORDERED: BUME2TAB3 PO (14:28)
--- NOTE | 2016-10-30 14:38 | Discharge Instructions ---
Discharge Instructions Date of Service Oct 30, 2016. Admission Reason for Admission: Acute Kidney Failure, Chf Discharge Discharge Diagnosis / Problem: Acute Kidney injury, congestive heart failure Discharge Goals Goal(s): Decrease discomfort, Improve disease control, Improve nutritional status Activity Recommendations Activity Limitations: per Instructions/Follow-up section . Instructions / Follow-Up Instructions / Follow-Up During this visit to the hospital, you were admitted for heart and kidney failure For your acute kidney failure, we are holding your entresto for now (due to your abnormal labwork), which should be followed up with your PCP to determine when it should be restarted. Continue taking your carvedilol, and take the bumex as prescribed, 2 tablets in the morning and 1 tablet at night. Continue following a low salt and heart healthy diet. Continue taking your aspirin, clopidogrel, and pravastatin. Finish the course of antibiotics for your toe ulcer. You should have repeat bloodwork and follow up with [facility] in the next week for the issues listed above. You should be seen by a marketing graphics specialist for further more advanced care when you have the insurance/finances available. Return to the ED for worsening symptoms. Current Hospital Diet Patient's current hospital diet: Low Sodium Diet (2gm Na), Diabetes Type 2 Diet , AHA Diet (Heart Healthy), Renal Diet Discharge Diet Recommended Diet: AHA Diet (Heart Healthy), Low Sodium Diet (2gm Na), Diabetes Type 2 Diet Pending Studies Studies pending at discharge: no Laboratory Results Hemoglobin A1c Test 10/24/16 13:30 Range/Units Estimated Average Glucose 140 mg/dl Hemoglobin A1c 6.5 H 4.5-5.6 % Lipid Panel Test 09/10/16 03:37 Range/Units Triglycerides Level 82 0-150 mg/dl Cholesterol Level 107 0-200 mg/dl HDL Cholesterol 45 mg/dl Cholesterol/HDL Ratio 2.4 LDL Cholesterol, Calculated 46 mg/dl Medical Emergencies . Who to Call and When: Medical Emergencies: If at any time you feel your situation is an emergency, please call 911 immediately. . Non-Emergent Contact Non-Emergency issues call your: Primary Care Provider . . "Provider Documentation" section prepared by Peace Chaudhry. . VTE Core Measure Inpt VTE Proph given/why not?: Unfractionated heparin JALEEL, Belinda Abebe, SCD 's
[2016-10-30 14:43] VITALS: BP 117/72; PULSE 63; TEMP 36.7; O2SAT 91
[2016-10-30 14:45] VITALS: BP 117/72; PULSE 63; TEMP 36.7; O2SAT 91
--- NOTE | 2016-10-30 18:33 | Discharge Summary ---
Discharge Summary Date of Service Oct 30, 2016. (Peace Chaudhry M.D.) Discharge Summary Admission Date: Oct 27, 2016 at 22:16 Discharge Date: Oct 30, 2016 Discharge Disposition: Home Principal Diagnosis: Acute kidney failure Problems/Secondary Diagnoses: (1) CHF (congestive heart failure) Status: Chronic Consultations: Cardiology (Peace Chaudhry M.D.) Medication Reconciliation Changed Medications: Bumetanide (Bumex) 2 Mg Tab 1 MG PO BID, #90 TAB (Changed from: 2 MG; QPM; 15) Take 2 tablets in the AM and 1 tablet at night. Continued Medications: Albuterol (Ventolin Hfa) 60 Puffs/5400 Mcg Aers 2 PUFFS PO Q6H PRN for cough, sob, wheeze, #1 INHALER 1 Refill Aspirin (Aspirin Ec) 325 Mg Tab 325 MG PO QAM Carvedilol (Coreg) 6.25 Mg Tab 6.25 MG PO BID, TAB Clopidogrel (Plavix) 75 Mg Tab 75 MG PO QAM, #30 TAB 11 Refills Cyanocobalamin (Cyanocobalamin) 1,000 Mcg/Ml Inj 1 ML IM MONTHLY HASN'T HAD FOR 2 MONTHS, SAYS "HE FORGETS" TO GET THEM. Cyanocobalamin (Vitamin B-12) 500 Mcg Tab 1000 MCG PO QAM, #30 TAB 11 Refills can buy [id number] Gabapentin (Neurontin) 300 Mg Cap 600 MG PO QPM, CAP Nitroglycerin (Nitrostat) 0.4 Mg/1 Tab Subl 0.4 MG SL q5min PRN for Chest Pain, #1 BTL 0 Refills max 3 tabs in 15 minutes Pravastatin Sodium (Pravastatin Sodium) 80 Mg Tab 1 TAB PO HS, TAB 3 Refills Sulfa/Trimethoprim (Bactrim Ds 800MG/160MG) Tab 1 TAB PO BID for 5 Days, #10 TAB Discontinued Medications: Sacubitril-Valsartan (Entresto 97-103 mg) 1 Tab Tab 1 TAB PO BID Discharge Exam Review of Systems: Constitutional: + weight loss, No fever, No chills, No sweats, No weakness, No fatigue Eyes: No worsening of vision, No eye pain, No redness, No discharge, No diplopia ENT: No hearing loss, No unusual epistaxis, No nasal symptoms, No sore throat, No tinnitus, No dental problems, No trouble swallowing Respiratory: No cough, No sputum, No wheezing, No shortness of breath, No dyspnea on exertion, No dyspnea at rest, No hemoptysis Cardiovascular: No chest pain, No orthopnea, No PND, No edema, No claudication, No palpitations Abdomen: No pain, No nausea, No vomiting, No diarrhea, No constipation, No GI bleeding Musculoskeletal: No joint pain, No muscle pain, No swelling, No calf pain Genitourinary - Male: + urinary frequency, No hematuria, No dysuria, No urinary urgency, No urinary hesitancy, No urinary retention, No urinary incontinence, No penile discharge, No lesions, No impotence Neurologic: No memory loss, No paralysis, No weakness, No numbness/tingling , No vertigo, No balance problems Psychiatric: No depression symptoms, No anhedonism, No anxiety, No insomnia , No substance abuse, No problem reported Endocrine: No fatigue, No excessive thirst, No excessive urination, No problem reported Hematologic / Lymphatic: No abnormal bleeding/bruising, No clotting problems , No swollen lymph nodes, No night sweats Integumentary: + new/changing skin lesions (healing ulcer on right great hallux) Physical Exam: General Appearance: WD/WN, no apparent distress Eyes: normal inspection, PERRL, EOMI ENT: hearing grossly normal, pharynx normal Neck: supple, no JVD, no carotid bruits Respiratory/Chest: chest non-tender, lungs clear, normal breath sounds, no respiratory distress, no accessory muscle use Cardiovascular: regular rate, rhythm, no edema, no JVD, no murmur, normal peripheral pulses Abdomen / GI: normal bowel sounds, non tender, soft, no pulsatile mass, + distended Extremities: normal inspection, no calf tenderness, no pedal edema Neurologic/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 The patient stated that over the last three weeks, he gained almost 20 pounds. The patient noted that after driving two hours home, he gained 4 pounds and when he arrived home, he had to use a knife to get his shoe off because of edema to his feet. He also had shortness of breath. PMH significant for CHF and recent heart cath, which was negative. He also has had an infection in his toes. He travels for his job frequently that causes him to eat poorly. Prior to admission his creatinine jumped from 1.3 to 2.8. Acute renal failure: - Recommend continuing to hold entresto until kidneys respond appropriately - Recommend continuing Carvedilol for HTN - Increased bumex to 3 mg daily, 2 mg in AM, 1mg in PM - patient stable without nitro paste - Rx for outpatient BMP (watch Cr and K+) given on discharge Elevated JVD: - never had sleep study, degree of JVD doesn't appear to match his pulmonary edema, EKG with likely right ventricular hypertrophy, and previous echo with elevated right arterial pressure. - recommend outpatient sleep study for assessment of DIGNA PMH: Coronary artery disease / acute on chronic restrictive and congestive heart failure: - likely due to recent poor dietary choices - Patient has poor compliance with medications - Cardiology consulted - continue ASA, clopidogrel, pravastatin and carvedilol - Decreased peripheral edema, abdominal girth, loss of roughly 20 pounds while in hospital PMH Right toe ulcer: Ongoing, pt says related to DM. - Doesn't appear acutely infected on exam. - Wound care consulted - restart bactrim as outpatient Total Time Spent: Greater than 30 minutes This includes examination of the patient, discharge planning, medication reconciliation, and communication with other providers. (Peace Chaudhry M.D.) Discharge Instructions Please refer to the electronic Patient Visit Report (Discharge Instructions) for additional information. (Peace Chaudhry M.D.) Follow-Up Monday11/04/16 with [facility] (Peace Chaudhry M.D.) Additional Copies To Neha Wilson M.D. History Resident Physician Supervision Note: I was present with Dr. Chaudhry during the history and exam. I discussed the case with the resident and agree with the findings and plan as documented in the note. Any exceptions or clarifications are listed here. Pt seen and examined at bedside. No acute events overnight. Significant diuresis on bumex IV with decrease in abdominal distention and improvement in shortness of breath. Reports no fever, lightheadedness, sensory changes. (Kyle Dias MD) General Appearance: WD/WN, no apparent distress Respiratory: chest non-tender, lungs clear, normal breath sounds, no respiratory distress Cardiovascular: normal peripheral pulses, regular rate, rhythm, no murmur Gastrointestinal: normal bowel sounds, non tender, soft, other (decreased fluid wave from intially) (Kyle Dias MD) Assessment/Plan 61 y/o male h/o ischemic cardiomyopathy and CAD s/p bypass presents w/ TISHA TISHA - avoid nephrotoxic medications - improved with bumex, increased as below. Would repeat Cr in 3-4 days prior to f/u on Monday CAD, CHF - cardiology consulted - continue ASA, plavix, pravastatin, coreg, increase bumex to 2mg qAM and 1mg in PM RLE ulcer - continue bactrim, f/u with wound care Elevated troponin - at baseline (Kyle Dias MD) Resident Tracking Resident Involvement: Resident Care Provided Care Provided: Adult Hospital Medicine (Peace Chaudhry M.D.)
== END 2016-10-30 15:00 | disposition home or self-care (01) ==
LOC: C.EDB 18:58 → C.MS4W 22:16 → EDBEDREQ 22:24 → ENRESERV 22:26
PROVIDERS: ADMIT Internal Medicine; ATTEND Family Medicine
DX: I50.23 Acute on chronic systolic (congestive) heart failure (principal); N17.9 Acute kidney failure, unspecified; N18.9 Chronic kidney disease, unspecified; I13.0 Hypertensive heart and chronic kidney disease with heart failure and stage 1 through stage 4 chronic kidney disease, or unspecified chronic kidney disease; I45.10 Unspecified right bundle-branch block; I25.10 Atherosclerotic heart disease of native coronary artery without angina pectoris; I25.5 Ischemic cardiomyopathy; I25.2 Old myocardial infarction; L97.911 Non-pressure chronic ulcer of unspecified part of right lower leg limited to breakdown of skin; Z91.11 Patient's noncompliance with dietary regimen; Z95.0 Presence of cardiac pacemaker; Z95.1 Presence of aortocoronary bypass graft; Z79.82 Long term (current) use of aspirin; Z79.899 Other long term (current) drug therapy